=== PATIENT | male | born 1960 | race Caucasian/White ===

== ENCOUNTER 2021-08-12 01:40 | Inpatient (IN) | payer MEDICAID, SELFPAY ==
[2021-08-12] VITALS (9 sets, daily range): BP systolic 122–159; BP diastolic 52–70; PULSE 59–65; RESP 15–18; TEMP 36.3–37.2; O2SAT 96–98; BMI 21.4; BMI 24.6
[2021-08-12 01:52] LABS: Glucose, Whole Blood 70 mg/dL (60-115)
--- NOTE | 2021-08-12 02:07 | ECG_ITS ---
Test Reason : HYPOGLYCEMIA Blood Pressure : / mmHG Vent. Rate : 065 BPM Atrial Rate : 065 BPM P-R Int : 224 ms QRS Dur : 128 ms QT Int : 436 ms P-R-T Axes : 046 148 031 degrees QTc Int : 453 ms Sinus rhythm with 1st degree A-V block Non-specific intra-ventricular conduction block Anterolateral infarct , age undetermined Abnormal ECG No previous ECGs available Referred By: Vicky Starkey Electronically Signed By:INGRID KRISHNAN MD
[2021-08-12 02:48] LABS: Basophils Percent Auto 0.4 % (0-2); Eosinophils Absolute Auto 0.4 X10*3/uL (0.0-0.4); Eosinophils Percent Auto 3.7 % (0-4); Hemoglobin 10.1 g/dl (14.0-18.0); Imm Gran Abs Auto 0.04 X10*3/uL (0.00-0.03); Imm Gran Pct Auto 0.4 % (0.0-0.4); Lymphocytes Absolute Auto 0.8 X10*3/uL (1.2-4.9); Lymphocytes Percent Auto 7.6 % (20-40); MANUAL DIFF FLAG NO; Mean Corpuscular HGB Conc 34.8 g/dl (31.0-36.0); Mean Corpuscular Hemoglobin 30.5 pg (27.0-33.0); Mean Corpuscular Volume 87.6 fL (80-98); Monocytes Absolute Auto 0.8 X10*3/uL (0.1-1.2); Monocytes Percent Auto 7.8 % (2-11); Neutrophils Absolute Auto 7.9 X10*3/uL (2.0-8.3); Neutrophils Percent Auto 80.1 % (45-73); Platelet Count 225 X10*3/uL (160-400); Red Blood Count 3.31 X10*6/uL (4.60-5.80); Red Cell Distribution Width 12.6 % (11.0-16.0); White Blood Count 9.9 X10*3/uL (4.8-10.8)
--- NOTE | 2021-08-12 02:58 | ED.GENADULT ---
HPI - General Adult General Chief complaint: Recheck/Abnormal Lab/Rx Stated complaint: hyperglycemia Time Seen by Provider: 08/12/21 02:06 Source: patient Mode of arrival: EMS History of Present Illness HPI narrative: 60-year-old male who is brought in by EMS from [facility] facility for persistent hypoglycemia after patient was started on a course of fluconazole for significant oral thrush. According to the nursing staff patient was taken off of his diabetic medications but his blood sugar continues to ?plummet? after taking the fluconazole. Patient otherwise denies any current sore throat, cough, shortness of breath, chest pain, GI or symptoms. Patient states that he was recently found to have a mass within his mouth that is scheduled for radiation. Related Data Allergies Allergy/AdvReac Type Severity Reaction Status Date / Time No Known Allergies Allergy Unverified 08/12/21 02:07 Review of Systems Review of Systems: Pertinent positives and negatives as stated in HPI 10 point review of systems is otherwise negative. PMFSH Past Medical History Source: nursing notes reviewed Social History Social History Advance Directives: No Physical Exam Vital Signs: Vital Signs: Last Vital Signs Temp 97.4 F 08/12/21 02:04 Pulse 59 08/12/21 02:04 Resp 18 08/12/21 02:04 BP 135/59 L 08/12/21 02:04 Pulse Ox 96 08/12/21 02:04 VITAL SIGNS: Reviewed. GENERAL: Elderly, chronically ill, in no acute distress. HEAD: Normocephalic/atraumatic EYES: PERRLA, EOMI EARS: Ext canals without abnormality NOSE: Nares patent bilateral OROPHARYNX: There is a mass noted to the right upper hard/soft palate with extensive oral thrush NECK: Supple, no adenopathy LUNGS: Normal breath sounds. No adventitious sounds or accessory muscle use. SpO2<96> CARDIOVASCULAR: Regular rate and rhythm without noted murmurs, no JVD or lower extremity edema. ABDOMEN: Soft, non-tender, non-distended with bowel sounds. NEUROLOGIC: Alert and oriented x 3. Strength and sensation to light touch were grossly intact x 4. Course Course Course Narrative: This is a 60-year-old male with history and clinical presentation consistent with persistent hypoglycemia and noted to be 70 on arrival but during his stay was noted to have a repeat point of care that registered 49. Otherwise, there is a noted anemia that is likely secondary to chronic disease and a mildly elevated potassium level that will be re-evaluated after patient receives fluids. All other investigations were reviewed and case was discussed with inpatient hospitalist who accepts admission. Medical Decision Making Lab Data Result diagrams: 08/12/21 02:42 08/12/21 02:42 Labs: Lab Results 08/12/21 08/12/21 08/12/21 Range/Units 01:48 02:42 02:42 WBC 9.9 (4.8-10.8) X10*3/uL RBC 3.31 L (4.60-5.80) X10*6/uL Hgb 10.1 L (14.0-18.0) g/dl Hct 29.0 L (42-52) % MCV 87.6 (80-98) fL MCH 30.5 (27.0-33.0) pg MCHC 34.8 (31.0-36.0) g/dl RDW 12.6 (11.0-16.0) % Plt Count 225 (160-400) X10*3/uL MPV 9.0 L (9.4-12.4) fL Immature Gran % (Auto) 0.4 (0.0-0.4) % Neut % (Auto) 80.1 H (45-73) % Lymph % (Auto) 7.6 L (20-40) % [place] % (Auto) 7.8 (2-11) % Eos % (Auto) 3.7 (0-4) % Baso % (Auto) 0.4 (0-2) % Lymph # (Auto) 0.8 L (1.2-4.9) X10*3/uL [place] # (Auto) 0.8 (0.1-1.2) X10*3/uL Eos # (Auto) 0.4 (0.0-0.4) X10*3/uL Baso # (Auto) 0.0 (0.0-0.2) X10*3/uL Abs Immat Gran (auto) 0.04 H (0.00-0.03) X10*3/uL Absolute Neuts (auto) 7.9 (2.0-8.3) X10*3/uL Absolute Nucleated RBC 0.000 (0.0-0.012) X10*3/uL Nucleated RBC % (auto) 0.0 (0.0-0.2) /100WBC Sodium 139 (135-145) mmol/L Potassium 5.6 H (3.3-5.1) mmol/L Chloride 105 (96-108) mmol/L Carbon Dioxide 26 (22-29) mmol/L Anion Gap 14 (12-20) BUN 38 H (9-16) mg/dL Creatinine 1.38 (0.5-1.4) mg/dL Estim Creat Clear Calc TNP Estimated GFR 53 POC Glucose 70 (60-115) mg/dL Random Glucose 74 (60-115) mg/dL Calcium 8.3 L (8.4-10.2) mg/dL Total Bilirubin 0.2 (0.0-1.0) mg/dL AST 25 (5-37) U/L ALT 18 (0-40) U/L Alkaline Phosphatase 89 (39-117) U/L Total Protein 5.6 L (6.5-8.0) g/dL Albumin 2.9 L (3.5-5.0) g/dL 08/12/21 Range/Units 03:41 WBC (4.8-10.8) X10*3/uL RBC (4.60-5.80) X10*6/uL Hgb (14.0-18.0) g/dl Hct (42-52) % MCV (80-98) fL MCH (27.0-33.0) pg MCHC (31.0-36.0) g/dl RDW (11.0-16.0) % Plt Count (160-400) X10*3/uL MPV (9.4-12.4) fL Immature Gran % (Auto) (0.0-0.4) % Neut % (Auto) (45-73) % Lymph % (Auto) (20-40) % [place] % (Auto) (2-11) % Eos % (Auto) (0-4) % Baso % (Auto) (0-2) % Lymph # (Auto) (1.2-4.9) X10*3/uL [place] # (Auto) (0.1-1.2) X10*3/uL Eos # (Auto) (0.0-0.4) X10*3/uL Baso # (Auto) (0.0-0.2) X10*3/uL Abs Immat Gran (auto) (0.00-0.03) X10*3/uL Absolute Neuts (auto) (2.0-8.3) X10*3/uL Absolute Nucleated RBC (0.0-0.012) X10*3/uL Nucleated RBC % (auto) (0.0-0.2) /100WBC Sodium (135-145) mmol/L Potassium (3.3-5.1) mmol/L Chloride (96-108) mmol/L Carbon Dioxide (22-29) mmol/L Anion Gap (12-20) BUN (9-16) mg/dL Creatinine (0.5-1.4) mg/dL Estim Creat Clear Calc Estimated GFR POC Glucose 49 L* (60-115) mg/dL Random Glucose (60-115) mg/dL Calcium (8.4-10.2) mg/dL Total Bilirubin (0.0-1.0) mg/dL AST (5-37) U/L ALT (0-40) U/L Alkaline Phosphatase (39-117) U/L Total Protein (6.5-8.0) g/dL Albumin (3.5-5.0) g/dL ECG Data Attestation: I personally reviewed and interpreted this ECG as follows: Prior ECG tracings: not available for review Interpretation: Sinus rhythm with first-degree AV block, HR-65, no STEMI, QTC is within normal limits Discharge Plan Discharge Clinical Impression: Hypoglycemia, Oral thrush, Diabetes, Mass of oral cavity Patient Disposition: Admitted As Inpatient
[2021-08-12 03:07] LABS: Alanine Aminotransferase 18 U/L (0-40); Albumin Level 2.9 g/dL (3.5-5.0); Alkaline Phosphatase 89 U/L (39-117); Anion Gap 14 (12-20); Aspartate Amino Transferase 25 U/L (5-37); Bilirubin Total 0.2 mg/dL (0.0-1.0); Blood Urea Nitrogen 38 mg/dL (9-16); Calcium 8.3 mg/dL (8.4-10.2); Carbon Dioxide 26 mmol/L (22-29); Chloride 105 mmol/L (96-108); Estimated Glomerular Filt Rate 53; Glucose Random 74 mg/dL (60-115); Potassium 5.6 mmol/L (3.3-5.1); Sodium 139 mmol/L (135-145); Total Protein 5.6 g/dL (6.5-8.0)
[2021-08-12 03:46] LABS: Glucose, Whole Blood 49 mg/dL (60-115)
--- NOTE | 2021-08-12 04:28 | PM.IMHP ---
History of Present Illness Date of Service: 08/12/21 Chief Complaint: Hypoglycemia 60-year-old male with a past medical history of hypertension, hyperlipidemia, diabetes, hypothyroidism, chronic kidney disease, diastolic heart failure, history of orthostatic hypotension, unsteady gait, history of sepsis, came from a assisted-[facility] rehab (ph [phone]); with a chief complaint of hypoglycemia. Patient is a poor historian. I spoke to the assisted RN Mary Carmen who knows the patient for the past few weeks; reports that patient presented to the rehab place 6 weeks ago for tonsillitis which is been treated; Over the course of past couple weeks he developed oral thrush-he finished a course of nystatin swish and swallow oral thrush improved; 1 week later he again developed it; subsequently he was sent for evaluation and later he was restarted on fluconazole which he got the 1st dose on 08/11/2020 1:00 a.m. followed by 20 minutes later patient became mildly confused, sweaty; blood sugar was noted to be in 50s; given glucose cells with improvement in blood sugar; again last night patient was noted to be kneeling to the side of the bed; denies any falls or head strike; patient was noted to be drowsy lethargic, diaphoretic; and his blood pressure was noted to be again in 50s. Subsequently patient was sent to the hospital for further evaluation. Denies having any seizure-like episode. RN also mentioned that couple weeks ago patient was diagnosed with mass in the throat and is being worked up for further evaluation-reportedly untreatable, plan for radiation therapy. RN also mentioned that patient lost about 100 lb in the past 2 months. Patient denies any chest pain palpitations lightheadedness or dizziness. Denies any fevers and chills. Patient is alert and awake. Patient denies fever chills cough. Denies difficulty swallowing-mentions that he was recently changed to pureed diet; and has been having decreased oral intake or many days. Review of all other systems is negative except mentioned above ER course: Per ER team patient noted to have fingerstick glucose in 50; given dextrose; started on D5 half NS; admitted to the hospital for further management. [facility] Medical History Chronic diastolic CHF (congestive heart failure) CKD (chronic kidney disease), stage II CKD (chronic kidney disease), stage III Complete heart block Diabetes Diffuse large B cell lymphoma HTN (hypertension) Hypothyroid Orthostatic hypotension Pertinent family history: reviewed Surgical History H/O right hemicolectomy History of appendectomy S/P placement of cardiac pacemaker Social History Household Members: Other Household Members Other:: assisted Housing: [facility] Do you presently have visiting nurse or other home services: Yes Alcohol intake: never Patient Tobacco Use Status: Never used Tobacco Advance Directives Date on File: 08/12/21 service: No Current occupational status: disabled Meds Allergies Allergy/AdvReac Type Severity Reaction Status Date / Time No Known Allergies Allergy Unverified 08/12/21 02:07 Active Medications: Current Medications Acetaminophen (Acetaminophen 325 Mg Tablet) 650 mg PO Q6H PRN PRN Reason: Pain, Mild (Pain Scale 1-3) Heparin Sodium (Porcine) (Heparin Sodium,Porcine 5,000 Unit/Ml Vial) 5,000 unit SUBCUT Q8H VARUN Dextrose/Sodium Chloride (D51/2ns) 1,000 mls @ 50 mls/hr IVCONT .Q20H VARUN Melatonin (Melatonin 3 Mg Tablet) 6 mg PO BEDTIME PRN PRN Reason: Insomnia Ondansetron HCl (Ondansetron Hcl 4 Mg/2 Ml Vial) 4 mg IVPUSH Q8H PRN PRN Reason: Nausea and Vomiting Senna (Sennosides 8.6 Mg Tablet) 17.2 mg PO BEDTIME PRN PRN Reason: Constipation Sodium Chloride (0.9 % Sodium Chloride Flush 3 Ml Syringe) 3 ml IVFLUSH QSHIFT [facility] Home Medications Medication Instructions Recorded Confirmed Last Taken Type amlodipine 10 mg tablet (Norvasc) 10 mg PO DAILY 08/12/21 08/12/21 Unknown History aspirin 81 mg chewable tablet 81 mg PO DAILY 08/12/21 08/12/21 Unknown History brimonidine 0.1 % eye drops 1 drp OPHTHALMIC (EYE) BID 08/12/21 08/12/21 Unknown History carvedilol 25 mg tablet 25 mg PO BID 08/12/21 08/12/21 Unknown History clonidine HCl 0.1 mg tablet 0.1 mg PO BID 08/12/21 08/12/21 Unknown History fluconazole 40 mg/mL oral 200 mg PO DAILY 08/12/21 08/12/21 Unknown History suspension guaifenesin 100 mg/5 mL oral syrup 200 mg PO Q6H PRN 08/12/21 08/12/21 Unknown History guaifenesin 600 mg tablet, 600 mg PO Q12H PRN 08/12/21 08/12/21 Unknown History extended release 12 hr insulin lispro 100 unit/mL 1 sliding scale dose SUBCUT 08/12/21 08/12/21 Unknown History subcutaneous solution (Humalog USEASDIRECTD U-100 Insulin) levothyroxine 75 mcg tablet 75 mcg PO DAILY 08/12/21 08/12/21 Unknown History omega 8-vbo-eim-fish oil 1,000 mg 1 cap PO TID 08/12/21 08/12/21 Unknown History (120 mg-180 mg) capsule (Fish Oil) rosuvastatin 10 mg tablet 10 mg PO DAILY 08/12/21 08/12/21 Unknown History Physical Exam Vital Signs and Narrative: Vital Signs: Last Vital Signs Temp 97.4 F 08/12/21 02:04 Pulse 59 08/12/21 02:04 Resp 18 08/12/21 02:04 BP 135/59 L 08/12/21 02:04 Pulse Ox 96 08/12/21 02:04 Gen: Appears be in no acute distress HEENT: NCAT, Moist mucosa. Oral thrush noted involving most of the oral cavity including the tongue Pulmonary: Vesicular breath sounds, fair air entry CVS: Normal S1-S2 Abdomen: BS+, Soft, Nontender Extremities: Warm well perfused Neuro: Alert and awake. Results Labs CBC and Chem 7: 08/15/21 05:47 08/15/21 05:47 Labs: Laboratory Results - last 24 hr 08/12/21 08/12/21 08/12/21 01:48 02:42 02:42 MCV 87.6 MCH 30.5 MCHC 34.8 RDW 12.6 Plt Count 225 MPV 9.0 L Immature Gran % (Auto) 0.4 Neut % (Auto) 80.1 H Lymph % (Auto) 7.6 L [place] % (Auto) 7.8 Eos % (Auto) 3.7 Baso % (Auto) 0.4 Lymph # (Auto) 0.8 L [place] # (Auto) 0.8 Eos # (Auto) 0.4 Baso # (Auto) 0.0 Abs Immat Gran (auto) 0.04 H Absolute Neuts (auto) 7.9 Absolute Nucleated RBC 0.000 Nucleated RBC % (auto) 0.0 Anion Gap 14 Estim Creat Clear Calc TNP Estimated GFR 53 POC Glucose 70 Random Glucose 74 Calcium 8.3 L Total Bilirubin 0.2 AST 25 ALT 18 Alkaline Phosphatase 89 Total Protein 5.6 L Albumin 2.9 L 08/12/21 03:41 MCV MCH MCHC RDW Plt Count MPV Immature Gran % (Auto) Neut % (Auto) Lymph % (Auto) [place] % (Auto) Eos % (Auto) Baso % (Auto) Lymph # (Auto) [place] # (Auto) Eos # (Auto) Baso # (Auto) Abs Immat Gran (auto) Absolute Neuts (auto) Absolute Nucleated RBC Nucleated RBC % (auto) Anion Gap Estim Creat Clear Calc Estimated GFR POC Glucose 49 L* Random Glucose Calcium Total Bilirubin AST ALT Alkaline Phosphatase Total Protein Albumin Assessment and Plan (1) Hypoglycemia: Status: Acute (2) Oral thrush: Status: Acute (3) Diabetes: Status: Acute (4) Mass of oral cavity: Status: Resolved 60-year-old male with a past medical history of hypertension, hyperlipidemia, diabetes, hypothyroidism, chronic kidney disease, diastolic heart failure, history of orthostatic hypotension, unsteady gait, history of sepsis, tonsillitis, oral thrush presented with chief complaint of hypoglycemia. Hypoglycemia: Multifactorial. Patient had poor oral intake. Patient was on glimepiride at home. Per RN hypoglycemia happened after he got the 1st dose of fluconazole at the assisted. Patient was drowsy and diaphoretic during the episode. Patient currently improved symptomatically. Continue D5 half NS. Hold home insulin and oral hypoglycemic agents. Poor intake: Likely secondary to oral thrush. Also patient was recently diagnosed with throat mass. Speech and swallow evaluation. NPO for now Nutrition consult Oral thrush: Patient already finished course of nystatin swish and swallow couple weeks ago; patient currently denies any odynophagia. Patient received 1st dose of fluconazole on 08/11/2021. Will consult ID for further recommendations. Will defer to the a.m. team to discuss with Gastroenterology for possible EGD. Throat mass: Patient unable to provide more information. Reportedly he has been planned for radiotherapy as the mass was a inoperable. Will defer to the a.m. team to obtain records/consider Oncology consult. Diabetes: Monitor fingerstick glucose. Insulin and home oral hypoglycemic agents on hold secondary to recurrent hypoglycemia. History of diastolic heart failure: Patient reported that he was Lasix remotely. But has not been on it for many days. Currently not in fluid overload. Will continue to monitor. Also reports had a pacemaker. DVT prophylaxis: Subcu heparin Code status: Full code Emergency contact: Patient's brother [phone] Quality Stroke Does the patient have a stroke diagnosis?: No VTE Prior VTE?: No VTE Risk Level:: Medical - moderate - high VTE Device Contraindication: Treatment Not Indicated VTE Drug Contraindication: N/A - Med Ordered
[2021-08-12 04:30] LABS: Glucose, Whole Blood 57 mg/dL (60-115)
[2021-08-12 04:42] LABS: COVID-19 Test Negative (Negative)
[2021-08-12] MEDS: Dextrose 5 % and 0.45 % NaCl 1,000 ML 50 ML IVCONT (04:47)
[2021-08-12 05:36] LABS: Glucose, Whole Blood 113 mg/dL (60-115)
[2021-08-12 06:34] LABS: Appearance Urine CLEAR; Color Urine YELLOW; Glucose Urine UA NEG (NEG); Leukocyte Esterase Urine NEG (NEG); Nitrite Urine NEG (NEG); Specific Gravity - Urine 1.015 (1.005-1.025); UACC Culture Trigger NO; Urine Blood NEG (NEG); Urine Ketones NEG (NEG); Urine Protein 2+ MG/DL (NEG-TRACE)
[2021-08-12 06:52] LABS: RBC Urine 0 /HPF (0); WBC Urine 0 /HPF (0-4)
--- NOTE | 2021-08-12 07:08 | PHA.MEDREC ---
Pharmacy Consult ? Medication Reconciliation Pharmacy has completed the medication reconciliation. Additional medication were add into home medication list from [facility] medication list that were missed overnight. Barbie Sarah, MaryaD
[2021-08-12] MEDS: 0.9 % Sodium Chloride Flush 3 ML SYRINGE IVFLUSH (07:33)
[2021-08-12 08:03] LABS: MANUAL DIFF FLAG NO
[2021-08-12 08:03] LABS: Glucose, Whole Blood 41 mg/dL (60-115)
[2021-08-12 08:07] LABS: Basophils Percent Auto 0.4 % (0-2); Eosinophils Absolute Auto 0.3 X10*3/uL (0.0-0.4); Eosinophils Percent Auto 4.2 % (0-4); Hematocrit 27.4 % (42-52); Hemoglobin 9.4 g/dl (14.0-18.0); Imm Gran Abs Auto 0.03 X10*3/uL (0.00-0.03); Imm Gran Pct Auto 0.4 % (0.0-0.4); Lymphocytes Absolute Auto 0.9 X10*3/uL (1.2-4.9); Lymphocytes Percent Auto 11.9 % (20-40); Mean Corpuscular HGB Conc 34.3 g/dl (31.0-36.0); Mean Corpuscular Hemoglobin 29.8 pg (27.0-33.0); Monocytes Absolute Auto 0.8 X10*3/uL (0.1-1.2); Monocytes Percent Auto 10.1 % (2-11); Neutrophils Absolute Auto 5.8 X10*3/uL (2.0-8.3); Platelet Count 202 X10*3/uL (160-400); Red Blood Count 3.15 X10*6/uL (4.60-5.80); Red Cell Distribution Width 12.6 % (11.0-16.0); White Blood Count 7.9 X10*3/uL (4.8-10.8)
--- NOTE | 2021-08-12 08:10 | PC.NURSE ---
Addendum entered by Do Zamora RN 08/12/21 08:14: Dr Amaral aware. Original Note: Patient's POC 41; patient A+O, easily arousable, yet drowsy. D50 amp given. Patient more talkative after admin. To recheck POC in 15 min. R IV removed due to infiltration.
[2021-08-12 08:31] LABS: Glucose, Whole Blood 126 mg/dL (60-115)
[2021-08-12 08:36] LABS: Anion Gap 8 (12-20); Blood Urea Nitrogen 34 mg/dL (9-16); Calcium 7.8 mg/dL (8.4-10.2); Carbon Dioxide 28 mmol/L (22-29); Chloride 106 mmol/L (96-108); Creatinine Clr Calc Pharmacy 64.1; Estimated Glomerular Filt Rate > 60; Glucose Random 42 mg/dL (60-115); Magnesium 2.6 mg/dL (1.6-2.6); Sodium 137 mmol/L (135-145)
--- NOTE | 2021-08-12 09:10 | PC.NURSE ---
Updates to Mick mcneil over phone with patient's permission.
[2021-08-12 09:56] LABS: Glucose, Whole Blood 77 mg/dL (60-115)
[2021-08-12 09:56] LABS: Glucose, Whole Blood 59 mg/dL (60-115)
[2021-08-12] MEDS: Nystatin Oral Susp 500,000 UNIT/5 ML ORAL.SUSP 500000 UNIT PO ×4 (09:59→20:05)
--- NOTE | 2021-08-12 10:02 | PC.NURSE ---
Pt's bed mobility is quite good, able to roll side to side, adjust position etc. has 2st degree breakdown in buttocks fold. thick thrush layer on tongue and maffled voice. was able to follow instructions or swish and spit well. remains difficult to maintain safe sugars, last check was 59 and 1 amp d50 administered. pt has been alert and arousable to light touch since this rn arrival at 7am. awaits bed on medsur floor. is aware of NPO status.
[2021-08-12 10:29] LABS: Glucose, Whole Blood 129 mg/dL (60-115)
--- NOTE | 2021-08-12 11:04 | MHC.SL.SWA ---
Speech Pathologist Impression: Risk of Aspiration Oralpharyngeal Dysphagia Risk of Aspiration Due to: Poor PO Intake Dysphasia Diet Status: Upgrade Liquid Consistency and Strategies for Safe Swallow: Liquid Intake Recommendation: Thin Liquid Intake Strategies: Small Sips Solid Food Consistency: Dietary Recommendations: Pureed (NDD1) Additional Modifications to Solid Foods: Completed bedside dysphagia evaluation 08/12/21. Patient as brought to ED for chief complaint of hypoglycemia. Patient was recently diagnosed with throat mass and has lost 100 lbs in two months. Patient reports recent change to pureed foods. Note hyponasality. Patient is able to feed himself without difficulty. Patient displays prolonged oral preparatory phase and bolus manipulation. Delayed AP transport. Upon palpation, incomplete laryngeal elevation and timely swallow trigger. Patient did impulsively take very large bites of food, but responded to verbal cues reminding him to take small bites/sips. Recommend PUREED (NDD1) foods and THIN liquids, with small pills whole, otherwise crushed in puree. Recommend total supervision and strict aspiration precautions. NETWORK SYSTEMS ANALYST will follow up tomorrow morning to ensure tolerance and to assess potential for upgrade. Oral Medication Intake: Whole with Puree Compensatory Strategies and Precautions to be Taken for Safe Swallow: Sitting Upright (90 deg) Double Swallow Small Bites and Sips Alternate Liquids/Solids Rate of Ingestion Change Supervision While Eating and Drinking for Safe Swallow: Total Supervision (1:1) Swallowing Recommended Treatments: Compens. Strategy Educat. Recommendation for Speech: Inpatient Speech Therapy Speech Therapy through Rehab Facility NETWORK SYSTEMS ANALYST will continue to follow daily during hospitalization M-F. Recommend continued ST intervention at next level of care for dysphagia and voice. Dye Range Tender Clinican/Clinical Fellow: Yes: Karla Castorena Supervisory Statement: I have reviewed and agree with the student/clinical fellow's documentation: Yes Speech Language Pathologist: Lexus Cortes M.A., [facility]NETWORK SYSTEMS ANALYST
[2021-08-12] MEDS: Brimonidine Tartrate 0.2% Oph 5 ML BOTTLE 1 DROP EYE-BOTH ×2 (11:11→20:06)
[2021-08-12] MEDS: carvediloL 25 MG TABLET PO ×2 (11:11→20:05)
[2021-08-12] MEDS: Aspirin 81 MG TAB.CHEW PO (11:11)
[2021-08-12] MEDS: amLODIPine Besylate 10 MG TABLET PO (11:12)
[2021-08-12] MEDS: cloNIDine HCL 0.1 MG TABLET PO ×2 (11:12→20:05)
[2021-08-12] MEDS: Atorvastatin Calcium 40 MG TABLET PO (11:12)
[2021-08-12 11:36] LABS: Glucose, Whole Blood 87 mg/dL (60-115)
--- NOTE | 2021-08-12 11:41 | MHC.SLORD ---
Speech Language Pathology Order Status: DRILLING RIG OPERATOR called and spoke to office staff from unit where patient resides at [facility] in [place] ([phone]). Unable to reach patient's RN, but staff member was able to look up patient's dietary recommendations at [facility]. Patient is on pureed solids (NDD1) and thin liquids at baseline per [facility] records.
[2021-08-12] MEDS: Levothyroxine Sodium 75 MCG TABLET PO (11:42)
--- NOTE | 2021-08-12 12:16 | MHC.CM.PN ---
Attempted to meet with patient in regards to discharge planning. Patient is sleeping. Spoke with patient's brother/hcp, Mick via telephone at [phone]. Patient was discharged from [facility] to [facility] 06/22/21. Anticipate patient will return to [facility] via BLS when medically stable. Copy of HCP obtained from [facility]. Patient received Pfizer vaccines on 02/10 and 03/04. Continue to monitor for d/c needs.
[2021-08-12 12:54] LABS: Glucose, Whole Blood 90 mg/dL (60-115)
[2021-08-12 14:45] LABS: Glucose, Whole Blood 72 mg/dL (60-115)
[2021-08-12] MEDS: Heparin Sodium,Porcine 5,000 UNIT/ML VIAL 5000 UNIT SUBCUT ×2 (15:01→20:05)
--- NOTE | 2021-08-12 15:05 | PC.NURSE ---
sitting upright feeding himself pureed diet after POC of 72. pt is alert, muffled voice continues. states he's not urinated or had BM all day. this RN to make Dr. Amaral aware following bladder scan. Skin pale warm dry. unlabored resp. awaits bed on MS floor.
--- NOTE | 2021-08-12 15:34 | PC.NURSE ---
bladder scanned for more than 1L. Pt states he'll be able to urinate if assisted to stand. PCT to follow through and patient to recieve hospital bed as 999 status continues. Had no difficulty eating pureed tray.
[2021-08-12 16:22] LABS: Glucose, Whole Blood 134 mg/dL (60-115)
--- NOTE | 2021-08-12 16:27 | PC.NURSE ---
Pt moved from room 4 to room 20. POC obtained after meal >100. Pt able to void in urinal before transfer to the other room.
[2021-08-12 17:17] LABS: Glucose, Whole Blood 150 mg/dL (60-115)
[2021-08-12 18:26] LABS: Glucose, Whole Blood 163 mg/dL (60-115)
[2021-08-12 19:25] LABS: Glucose, Whole Blood 150 mg/dL (60-115)
--- NOTE | 2021-08-12 20:07 | PC.NURSE ---
PATIENT ATE 100 % OF DINNER .
[2021-08-12] MEDS: Dextrose 5 % and 0.45 % NaCl 1,000 ML 100 ML IVCONT (20:18)
[2021-08-12 20:34] LABS: Glucose, Whole Blood 192 mg/dL (60-115)
[2021-08-12 23:43] LABS: Glucose, Whole Blood 171 mg/dL (60-115)
--- NOTE | 2021-08-13 00:30 | PC.NURSE ---
Addendum entered by Nuvia Lerma RN 08/13/21 00:37: POC obtained > 100. Dr. Browne updated, will monitor Q6hr per MD orders. Original Note: Patient a/o x3, pt denies sob, chest pain or dizziness. Pt desatted to 64% on RA x1 @00:30 while sleeping, recovered quickly when awaken, oral cavity suctioned for saliva, sats > 95% on RA. Vitals obtained/charted. Will continue to monitor.
[2021-08-13] MEDS: Heparin Sodium,Porcine 5,000 UNIT/ML VIAL 5000 UNIT SUBCUT ×3 (05:15→22:02)
[2021-08-13 07:23] VITALS: BP 133/62; PULSE 68; RESP 19; O2SAT 96
[2021-08-13 07:26] LABS: Hemoglobin 9.8 g/dl (14.0-18.0); Mean Corpuscular Hemoglobin 30.9 pg (27.0-33.0); Mean Corpuscular Volume 88.3 fL (80-98); Mean Platelet Volume 8.9 fL (9.4-12.4); Platelet Count 198 X10*3/uL (160-400); Red Blood Count 3.17 X10*6/uL (4.60-5.80); Red Cell Distribution Width 12.5 % (11.0-16.0); White Blood Count 7.2 X10*3/uL (4.8-10.8)
[2021-08-13 07:48] LABS: Glucose, Whole Blood 143 mg/dL (60-115)
[2021-08-13 08:00] LABS: Alanine Aminotransferase 18 U/L (0-40); Albumin Level 2.5 g/dL (3.5-5.0); Alkaline Phosphatase 82 U/L (39-117); Anion Gap 10 (12-20); Aspartate Amino Transferase 19 U/L (5-37); Bilirubin Direct 0.2 mg/dL (0.0-0.5); Bilirubin Total 0.4 mg/dL (0.0-1.0); Blood Urea Nitrogen 28 mg/dL (9-16); Calcium 7.9 mg/dL (8.4-10.2); Carbon Dioxide 27 mmol/L (22-29); Chloride 107 mmol/L (96-108); Creatinine Clr Calc Pharmacy 64.6; Estimated Glomerular Filt Rate > 60; Glucose Fasting 128 mg/dL (60-99); Magnesium 2.4 mg/dL (1.6-2.6); Potassium 5.2 mmol/L (3.3-5.1); Sodium 139 mmol/L (135-145)
--- NOTE | 2021-08-13 10:01 | MHC.SL.DTX ---
Pre-Treatment Diet: Subjective: Changes made to current diet?: No Dysphasia Diet Status: Continue NDD1 PUREED solids and THIN LIQUIDS. Pt requires aspiration precautions and 1:1 supervision to provide cuing for safety. Liquid Consistency and Strategies: Liquid Intake Recommendation: Thin Compensatory Strategies for Safe Swallow: Small Sips No Straws Compensatory Strategies for Safe Swallow(b): Sitting Upright (90 deg) No Straw Liquids from Cup Small Bites and Sips Alternate Liquids/Solids Rate of Ingestion Change Solid Food Consistency: Dietary Recommendations: Pureed (NDD1) Additional Modifications to Solids: Completed bedside dysphagia evaluation this morning. Patient was recently diagnosed with throat mass and has lost 100 lbs in two months. Patient reports recent change to pureed foods. Note hyponasality. Patient is able to feed himself without difficulty. Patient displays prolonged oral preparatory phase and bolus manipulation. Delayed AP transport. Upon palpation, incomplete laryngeal elevation. Patient did impulsively take very large bites of food, but responded to verbal cues reminding him to take small bites/sips. Recommend PUREED (NDD1) foods and THIN liquids, with small pills whole, otherwise crushed in puree. Recommend total supervision and strict aspiration precautions. SHEEP BONER will follow up tomorrow morning to ensure tolerance and to assess potential for upgrade. Oral Medication Intake: Whole with Puree Strategies and Precautions to be Taken for Safe Swallow: Compensatory Swallowing Status: Sitting Upright (90 deg) No Straw Liquids from Cup Small Bites and Sips Alternate Liquids/Solids Rate of Ingestion Change Supervision While Eating and/Drinking: Total Supervision (1:1) Foods to Avoid: Swallowing Recommended Treatments: Compens. Strategy Educat. Level of Impact on: Daily activities: Moderate Interpersonal interactions: Moderate Education: Employment: Community: Moderate Prognosis for Improvement: Fair Recommendation for Speech: Inpatient Speech Therapy Speech Therapy through Rehab Facility Comment: Completed bedside dysphagia evaluation 08/12/21. Patient as brought to ED for chief complaint of hypoglycemia. Patient was recently diagnosed with throat mass and has lost 100 lbs in two months. Patient reports recent change to pureed foods. Note hyponasality. Patient is able to feed himself without difficulty. Patient displays prolonged oral preparatory phase and bolus manipulation. Delayed AP transport. Upon palpation, incomplete laryngeal elevation and timely swallow trigger. Patient did impulsively take very large bites of food, but responded to verbal cues reminding him to take small bites/sips. Recommend PUREED (NDD1) foods and THIN liquids, with small pills whole, otherwise crushed in puree. Recommend total supervision and strict aspiration precautions. SHEEP BONER will follow up tomorrow morning to ensure tolerance and to assess potential for upgrade. Frequency/Duration: Date Range for Service Req: Timeline to reassess: Additional Comments: Treatment: 08/13: Pt was seen for dysphagia treatment while seated upright in bed. Pt had consumed 100% of his breakfast which appeared to be the correct diet consistency of NDD1 PUREED solids and THIN liquids, which is consistent with that of his baseline diet at the [facility] where he resides. Pt reported that this is the type of food he typically eats and denied difficulty with his meal. Pt self fed pureed solids though demonstrated significant impulsivity as he used a very fast rate of intake and large bolus size. Given cues for a small, single bolus and to swallow one bolus before taking another, pt was then able to demonstrate a more appropriate bolus size and rate. Pt also demonstrated large, continuous sips of thin liquids and was again responsive to verbal cuing for the use of small, single sips. A mild-moderately delayed pharyngeal swallow trigger without overt s/s aspiration were noted across consistencies. SHEEP BONER will continue to follow pt throughout his stay. Driver/Guide Clinican/Clinical Fellow: No Supervisory Statement: I have reviewed and agree with the student/clinical fellow's documentation: N/A Speech Language Pathologist: Daniela Cleary M.A., [facility]SHEEP BONER
--- NOTE | 2021-08-13 11:13 | PM.CNGS ---
History of Present Illness Consult details Consult date: 08/13/21 Narrative: 60-year-old male, with history of CHF, chronic kidney disease, and a recent diagnosis of large B-cell lymphoma, referred to me for possible PEG tube placement. He is a snf resident. He apparently had some altered mental status and was noted to be hypoglycemic so with sent to the ER yesterday. He does not provide a good history so most of this history is from the current records. He apparently has had some weight loss which was deemed to be secondary to poor oral intake. He does have an oral thrush as well and has a mass in the throat. In view of his hypoglycemia secondary to poor oral intake, I was asked to evaluate for possible PEG tube placement. Review of Systems Constitutional: Constitutional: Denies chills, Denies fever(s) and Reports poor appetite Cardiovascular: Cardiovascular: Denies chest pain at rest and Reports dyspnea on exertion Respiratory: Respiratory: Denies cough and Reports dyspnea on exertion Gastrointestinal: Gastrointestinal: Denies abdominal pain Genitourinary: Genitourinary: Denies hematuria PMFSH Past Medical History Medical History Chronic diastolic CHF (congestive heart failure) CKD (chronic kidney disease), stage II CKD (chronic kidney disease), stage III Complete heart block Diabetes Diffuse large B cell lymphoma HTN (hypertension) Hypothyroid Orthostatic hypotension Surgical History Surgical History H/O right hemicolectomy History of appendectomy S/P placement of cardiac pacemaker Social History Social History Alcohol intake: never Patient Tobacco Use Status: Never used Tobacco Advance Directives Date on File: 08/12/21 service: No Current occupational status: disabled Meds Allergies Allergy/AdvReac Type Severity Reaction Status Date / Time No Known Allergies Allergy Unverified 08/12/21 02:07 Active Medications: Current Medications Acetaminophen (Acetaminophen 325 Mg Tablet) 650 mg PO Q6H PRN PRN Reason: Pain, Mild (Pain Scale 1-3) Amlodipine Besylate (Amlodipine Besylate 10 Mg Tablet) 10 mg PO DAILY [facility]; Protocol Last Admin: 08/12/21 11:12 Dose: 10 mg Documented by: Aspirin (Aspirin 81 Mg Tab.Chew) 81 mg PO DAILY [facility] Last Admin: 08/12/21 11:11 Dose: 81 mg Documented by: Atorvastatin Calcium (Atorvastatin Calcium 40 Mg Tablet) 40 mg PO DAILY [facility] Last Admin: 08/12/21 11:12 Dose: 40 mg Documented by: Brimonidine Tartrate (Brimonidine Tartrate 0.2% Oph 5 Ml Bottle) 1 drop EYE-BOTH BID [facility] Last Admin: 08/12/21 20:06 Dose: 1 drop Documented by: Carvedilol (Carvedilol 25 Mg Tablet) 25 mg PO BID [facility]; Protocol Last Admin: 08/12/21 20:05 Dose: 25 mg Documented by: Clonidine HCl (Clonidine Hcl 0.1 Mg Tablet) 0.1 mg PO BID [facility]; Protocol Last Admin: 08/12/21 20:05 Dose: 0.1 mg Documented by: Dextrose (Dextrose 50 % 25 Gm/50 Ml Vial) 25 gm IVPUSH Q15M PRN PRN Reason: per Hypoglycemia Standing Ord. Last Admin: 08/12/21 09:59 Dose: 25 gm Documented by: Heparin Sodium (Porcine) (Heparin Sodium,Porcine 5,000 Unit/Ml Vial) 5,000 unit SUBCUT Q8H [facility] Last Admin: 08/13/21 05:15 Dose: 5,000 unit Documented by: Levothyroxine Sodium (Levothyroxine Sodium 75 Mcg Tablet) 75 mcg PO DAILY [facility] Last Admin: 08/12/21 11:42 Dose: 75 mcg Documented by: Melatonin (Melatonin 3 Mg Tablet) 6 mg PO BEDTIME PRN PRN Reason: Insomnia Nystatin (Nystatin Oral Susp 500,000 Unit/5 Ml Oral.Susp) 500,000 unit PO QID [facility] Last Admin: 08/12/21 20:05 Dose: 500,000 unit Documented by: Ondansetron HCl (Ondansetron Hcl 4 Mg/2 Ml Vial) 4 mg IVPUSH Q8H PRN PRN Reason: Nausea and Vomiting Senna (Sennosides 8.6 Mg Tablet) 17.2 mg PO BEDTIME PRN PRN Reason: Constipation Sodium Chloride (0.9 % Sodium Chloride Flush 3 Ml Syringe) 3 ml IVFLUSH QSHIFT [facility] Last Admin: 08/13/21 07:58 Dose: Not Given Documented by: Home Medications Medication Instructions Recorded Confirmed Last Taken Type amlodipine 10 mg tablet (Norvasc) 10 mg PO DAILY 08/12/21 08/12/21 Unknown History aspirin 81 mg chewable tablet 81 mg PO DAILY 08/12/21 08/12/21 Unknown History brimonidine 0.1 % eye drops 1 drp OPHTHALMIC (EYE) BID 08/12/21 08/12/21 Unknown History carvedilol 25 mg tablet 25 mg PO BID 08/12/21 08/12/21 Unknown History clonidine HCl 0.1 mg tablet 0.1 mg PO BID 08/12/21 08/12/21 Unknown History fluconazole 40 mg/mL oral 200 mg PO DAILY 08/12/21 08/12/21 Unknown History suspension glimepiride 4 mg tablet 4 mg PO DAILY 08/12/21 08/12/21 Unknown History guaifenesin 100 mg/5 mL oral syrup 200 mg PO Q6H PRN 08/12/21 08/12/21 Unknown History guaifenesin 600 mg tablet, 600 mg PO Q12H PRN 08/12/21 08/12/21 Unknown History extended release 12 hr insulin lispro 100 unit/mL 1 sliding scale dose SUBCUT 08/12/21 08/12/21 Unknown History subcutaneous solution (Humalog USEASDIRECTD U-100 Insulin) levothyroxine 75 mcg tablet 75 mcg PO DAILY 08/12/21 08/12/21 Unknown History omega 5-zny-ogt-fish oil 1,000 mg 1 cap PO TID 08/12/21 08/12/21 Unknown History (120 mg-180 mg) capsule (Fish Oil) rosuvastatin 10 mg tablet 10 mg PO DAILY 08/12/21 08/12/21 Unknown History Physical Exam Vital Signs: Vital Signs: Last Vital Signs Temp 97.8 F 08/12/21 22:00 Pulse 68 08/13/21 07:23 Resp 19 08/13/21 07:23 BP 133/62 08/13/21 07:23 Pulse Ox 96 08/13/21 07:23 Body Mass Index 24.6 Const: General: comfortable and no acute distress Orientation/consciousness: patient oriented x3 Neck: Neck: Yes no lymphadenopathy Resp: Auscultation: clear to auscultation bilaterally Cardio: Rhythm: regular rhythm GI: Palpation (GI): Soft to palpation, nontender and no guarding Neuro: General: patient oriented x3 Results Labs Result diagrams: 08/13/21 07:20 08/13/21 07:20 Labs: Abnormal lab results 08/12/21 08/12/21 08/12/21 Range/Units 16:18 17:14 18:22 RBC (4.60-5.80) X10*6/uL Hgb (14.0-18.0) g/dl Hct (42-52) % MPV (9.4-12.4) fL Potassium (3.3-5.1) mmol/L Anion Gap (12-20) BUN (9-16) mg/dL POC Glucose 134 H 150 H 163 H (60-115) mg/dL Fasting Glucose (60-99) mg/dL Calcium (8.4-10.2) mg/dL Total Protein (6.5-8.0) g/dL Albumin (3.5-5.0) g/dL 08/12/21 08/12/21 08/12/21 Range/Units 19:20 20:20 22:19 RBC (4.60-5.80) X10*6/uL Hgb (14.0-18.0) g/dl Hct (42-52) % MPV (9.4-12.4) fL Potassium (3.3-5.1) mmol/L Anion Gap (12-20) BUN (9-16) mg/dL POC Glucose 150 H 192 H 171 H (60-115) mg/dL Fasting Glucose (60-99) mg/dL Calcium (8.4-10.2) mg/dL Total Protein (6.5-8.0) g/dL Albumin (3.5-5.0) g/dL 08/13/21 08/13/21 08/13/21 Range/Units 07:20 07:20 07:45 RBC 3.17 L (4.60-5.80) X10*6/uL Hgb 9.8 L (14.0-18.0) g/dl Hct 28.0 L (42-52) % MPV 8.9 L (9.4-12.4) fL Potassium 5.2 H (3.3-5.1) mmol/L Anion Gap 10 L (12-20) BUN 28 H (9-16) mg/dL POC Glucose 143 H (60-115) mg/dL Fasting Glucose 128 H (60-99) mg/dL Calcium 7.9 L (8.4-10.2) mg/dL Total Protein 5.0 L (6.5-8.0) g/dL Albumin 2.5 L (3.5-5.0) g/dL Short CBC 08/13/21 Range/Units 07:20 WBC 7.2 (4.8-10.8) X10*3/uL Hgb 9.8 L (14.0-18.0) g/dl Hct 28.0 L (42-52) % Plt Count 198 (160-400) X10*3/uL BMP 08/13/21 07:20 Sodium 139 Potassium 5.2 H Chloride 107 Carbon Dioxide 27 BUN 28 H Creatinine 1.15 Calcium 7.9 L Liver Function 08/13/21 Range/Units 07:20 Total Bilirubin 0.4 (0.0-1.0) mg/dL Direct Bilirubin 0.2 (0.0-0.5) mg/dL AST 19 (5-37) U/L ALT 18 (0-40) U/L Alkaline Phosphatase 82 (39-117) U/L Albumin 2.5 L (3.5-5.0) g/dL Urine 08/12/21 Range/Units 06:26 Urine Color YELLOW Urine Appearance CLEAR Urine pH 6.0 (5.0-8.0) Ur Specific [place] 1.015 (1.005-1.025) Urine Protein 2+ H (NEG-TRACE) MG/DL Urine Glucose (UA) NEG (NEG) MG/DL All other labs normal. Assessment and Plan (1) Hypoglycemia: Status: Acute He was admitted with hyperglycemia, and apparent poor oral intake. It was reported that he has lost a lot of weight over the past few months. He was therefore referred to me for PEG tube placement. However, examination currently reveals that the patient actually had tolerated breakfast. He says that he ate practically all of his breakfast and says that he really did not have any problems with swallowing. We will see how he does over the weekend. We will re-evaluate him on Monday. If he appears to still require a PEG tube placement, then we will try to schedule him for this early next week. I have discussed the above with the hospitalist. Procedures Date of Service Date of Service: 08/13/21
[2021-08-13 11:16] VITALS: BP 156/62; PULSE 70
[2021-08-13] MEDS: Atorvastatin Calcium 40 MG TABLET PO (11:16)
[2021-08-13] MEDS: Aspirin 81 MG TAB.CHEW PO (11:16)
[2021-08-13] MEDS: cloNIDine HCL 0.1 MG TABLET PO ×2 (11:16→22:01)
[2021-08-13] MEDS: Nystatin Oral Susp 500,000 UNIT/5 ML ORAL.SUSP 500000 UNIT PO ×4 (11:16→22:02)
[2021-08-13 11:18] VITALS: BP 156/62; PULSE 70
[2021-08-13] MEDS: amLODIPine Besylate 10 MG TABLET PO (11:18)
[2021-08-13] MEDS: Brimonidine Tartrate 0.2% Oph 5 ML BOTTLE 1 DROP EYE-BOTH (11:18)
[2021-08-13 11:19] VITALS: BP 156/62; PULSE 70
[2021-08-13] MEDS: Levothyroxine Sodium 75 MCG TABLET PO (11:19)
[2021-08-13] MEDS: carvediloL 25 MG TABLET PO ×2 (11:19→22:02)
--- NOTE | 2021-08-13 11:46 | P.PNIM_ITS ---
Subjective Subjective Date of Service: 08/13/21 Interval History: cc: hypoglycemia interval history: nasal congestion, otherwise tolerated pureed breakfast well Cardiovascular Cardiovascular: Reports no additional cardiovascular complaints Respiratory Respiratory: Reports no additional respiratory complaints Physical Exam Vital Signs: Vital Signs: Last Vital Signs Temp 97.8 F 08/12/21 22:00 Pulse 70 08/13/21 11:19 Resp 19 08/13/21 07:23 BP 156/62 H 08/13/21 11:19 Pulse Ox 96 08/13/21 07:23 Body Mass Index 24.6 General: AO X 3, no acute distress HEENT: thrush, large oropharyngeal mass Resp: CTA bilateral, no accessory muscles used CVS: S1,S2,RRR GI: soft, non tender, non distended Neuro: motor grossly intact, alert Psych: appropriate affect, appropriate insight Objective Data Active Medications Acetaminophen (Acetaminophen 325 Mg Tablet) 650 mg PO Q6H PRN PRN Reason: Pain, Mild (Pain Scale 1-3) Amlodipine Besylate (Amlodipine Besylate 10 Mg Tablet) 10 mg PO DAILY [facility]; Protocol Last Admin: 08/13/21 11:18 Dose: 10 mg Documented by: NETO Aspirin (Aspirin 81 Mg Tab.Chew) 81 mg PO DAILY [facility] Last Admin: 08/13/21 11:16 Dose: 81 mg Documented by: NETO Atorvastatin Calcium (Atorvastatin Calcium 40 Mg Tablet) 40 mg PO DAILY [facility] Last Admin: 08/13/21 11:16 Dose: 40 mg Documented by: NETO Brimonidine Tartrate (Brimonidine Tartrate 0.2% Oph 5 Ml Bottle) 1 drop EYE- BOTH BID [facility] Last Admin: 08/13/21 11:18 Dose: 1 drop Documented by: NETO Carvedilol (Carvedilol 25 Mg Tablet) 25 mg PO BID [facility]; Protocol Last Admin: 08/13/21 11:19 Dose: 25 mg Documented by: NETO Clonidine HCl (Clonidine Hcl 0.1 Mg Tablet) 0.1 mg PO BID [facility]; Protocol Last Admin: 08/13/21 11:16 Dose: 0.1 mg Documented by: NETO Dextrose (Dextrose 50 % 25 Gm/50 Ml Vial) 25 gm IVPUSH Q15M PRN PRN Reason: per Hypoglycemia Standing Ord. Last Admin: 08/12/21 09:59 Dose: 25 gm Documented by: JERICA Heparin Sodium (Porcine) (Heparin Sodium,Porcine 5,000 Unit/Ml Vial) 5,000 unit SUBCUT Q8H [facility] Last Admin: 08/13/21 05:15 Dose: 5,000 unit Documented by: BRUNILDA Levothyroxine Sodium (Levothyroxine Sodium 75 Mcg Tablet) 75 mcg PO DAILY [facility] Last Admin: 08/13/21 11:19 Dose: 75 mcg Documented by: NETO Melatonin (Melatonin 3 Mg Tablet) 6 mg PO BEDTIME PRN PRN Reason: Insomnia Nystatin (Nystatin Oral Susp 500,000 Unit/5 Ml Oral.Susp) 500,000 unit PO QID [facility] Last Admin: 08/13/21 11:16 Dose: 500,000 unit Documented by: NETO Ondansetron HCl (Ondansetron Hcl 4 Mg/2 Ml Vial) 4 mg IVPUSH Q8H PRN PRN Reason: Nausea and Vomiting Senna (Sennosides 8.6 Mg Tablet) 17.2 mg PO BEDTIME PRN PRN Reason: Constipation Sodium Chloride (0.9 % Sodium Chloride Flush 3 Ml Syringe) 3 ml IVFLUSH QSHIFT [facility] Last Admin: 08/13/21 07:58 Dose: Not Given Documented by: NETO Non-Admin Reason: IV Running Labs CBC & Chem 7: 08/13/21 07:20 08/13/21 07:20 Labs: Laboratory Results - last 24 hr 08/12/21 08/12/21 08/12/21 12:48 14:41 16:18 MCV MCH MCHC RDW Plt Count MPV Absolute Nucleated RBC Nucleated RBC % (auto) Anion Gap Estim Creat Clear Calc Estimated GFR POC Glucose 90 72 134 H Fasting Glucose Calcium Magnesium Total Bilirubin Direct Bilirubin AST ALT Alkaline Phosphatase Total Protein Albumin 08/12/21 08/12/21 08/12/21 17:14 18:22 19:20 MCV MCH MCHC RDW Plt Count MPV Absolute Nucleated RBC Nucleated RBC % (auto) Anion Gap Estim Creat Clear Calc Estimated GFR POC Glucose 150 H 163 H 150 H Fasting Glucose Calcium Magnesium Total Bilirubin Direct Bilirubin AST ALT Alkaline Phosphatase Total Protein Albumin 08/12/21 08/12/21 08/13/21 20:20 22:19 07:20 MCV 88.3 MCH 30.9 MCHC 35.0 RDW 12.5 Plt Count 198 MPV 8.9 L Absolute Nucleated RBC 0.000 Nucleated RBC % (auto) 0.0 Anion Gap Estim Creat Clear Calc Estimated GFR POC Glucose 192 H 171 H Fasting Glucose Calcium Magnesium Total Bilirubin Direct Bilirubin AST ALT Alkaline Phosphatase Total Protein Albumin 08/13/21 08/13/21 07:20 07:45 MCV MCH MCHC RDW Plt Count MPV Absolute Nucleated RBC Nucleated RBC % (auto) Anion Gap 10 L Estim Creat Clear Calc 64.6 Estimated GFR > 60 POC Glucose 143 H Fasting Glucose 128 H Calcium 7.9 L Magnesium 2.4 Total Bilirubin 0.4 Direct Bilirubin 0.2 AST 19 ALT 18 Alkaline Phosphatase 82 Total Protein 5.0 L Albumin 2.5 L Assessment and Plan (1) CKD (chronic kidney disease), stage III: Status: Acute (2) Diffuse large B cell lymphoma: Status: Acute (3) Chronic diastolic CHF (congestive heart failure): Status: Acute (4) Hypothyroid: Status: Acute (5) Oral thrush: Status: Acute (6) Hypoglycemia: Status: Acute (7) Diabetes: Status: Acute Assessment and Plan: 60M sent in for dysphagia/hypoglycemia DM with hypoglycemia due to dysphagia from oropharyngeal mass and thrush in patient on sulfonourea continue diflucan eating better now - pureed/thins dc IVF, monitor poc, if unable to maintain on own would pursue Gtube early next week, otherwise can continue pureed diet and use insulin sliding scale instead o f orals. 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 Subcu heparin Code status:? Full code Quality Stroke Does the patient have a stroke diagnosis?: No VTE Prior VTE?: No VTE Risk Level:: Medical - moderate - high VTE Device Contraindication: Treatment Not Indicated VTE Drug Contraindication: N/A - Med Ordered
--- NOTE | 2021-08-13 13:04 | MHC.CLN ---
RE: CONSULT FOR POOR PO PT WITH ORAL THRUSK X 2 PT RX PUREED DIET PER HIV/AIDS CARE NURSE AND ALSO RECEIVED AT [facility]F NANOSCIENCE TECHNICIAN RECOMMEND ADDING ENSURE BID TO INCREASE KCALS SUPP TO PROVIDE 700KCALS, 40G PROTEIN MONITOR PO INTAKE CLOSELY
[2021-08-13 14:51] VITALS: BP 143/70; PULSE 68; RESP 20; TEMP 36.4; O2SAT 97
[2021-08-13 14:51] LABS: Glucose, Whole Blood 224 mg/dL (60-115)
[2021-08-13 15:12] VITALS: BP 147/65; PULSE 71; RESP 18; TEMP 36.9; O2SAT 97
[2021-08-13 15:45] VITALS: BMI 24.6
--- NOTE | 2021-08-13 15:59 | MHC.CLN ---
NUTRITION CONSULT STAGE I TO BUTTOCKS. DIET=PUREE, THIN LIQUIDS. ADDED ENSURE BID (700 KCAL, 40 G PROTEIN). DISCUSSED WEIGHT LOSS WITH PATIENT. STATED THAT WEIGHED 215# ABOUT A YEAR AGO. CURRENT EVCTRH=645#. SIGNIFICANT, UNPLANNED WEIGHT LOSS X 1 YEAR, -27%. SEE CLINICAL NUTRITION ASSESSMENT.
[2021-08-13 16:09] LABS: Glucose, Whole Blood 229 mg/dL (60-115)
[2021-08-13] MEDS: 0.9 % Sodium Chloride Flush 3 ML SYRINGE IVFLUSH ×2 (16:17→23:48)
[2021-08-13] MEDS: Insulin Lispro 100 UNIT/ML 3 ML VIAL SUBCUT (16:43)
[2021-08-13 20:25] LABS: Glucose, Whole Blood 205 mg/dL (60-115)
[2021-08-14] VITALS: BP 122/62; PULSE 64; RESP 18; TEMP 37.1; O2SAT 97
[2021-08-14 03:53] VITALS: BP 149/76; PULSE 70; RESP 17; TEMP 37.4; O2SAT 97
[2021-08-14] MEDS: Heparin Sodium,Porcine 5,000 UNIT/ML VIAL 5000 UNIT SUBCUT ×3 (04:41→20:32)
[2021-08-14 04:48] LABS: Hematocrit 26.4 % (42-52); Mean Corpuscular HGB Conc 34.1 g/dl (31.0-36.0); Mean Corpuscular Hemoglobin 29.9 pg (27.0-33.0); Mean Corpuscular Volume 87.7 fL (80-98); Mean Platelet Volume 9.3 fL (9.4-12.4); Platelet Count 208 X10*3/uL (160-400); Red Blood Count 3.01 X10*6/uL (4.60-5.80); Red Cell Distribution Width 12.3 % (11.0-16.0); White Blood Count 7.3 X10*3/uL (4.8-10.8)
[2021-08-14 05:10] LABS: Anion Gap 12 (12-20); Blood Urea Nitrogen 28 mg/dL (9-16); Calcium 7.8 mg/dL (8.4-10.2); Carbon Dioxide 26 mmol/L (22-29); Chloride 106 mmol/L (96-108); Creatinine Clr Calc Pharmacy 54.6; Estimated Glomerular Filt Rate 54; Glucose Fasting 139 mg/dL (60-99); Potassium 5.4 mmol/L (3.3-5.1); Sodium 139 mmol/L (135-145)
[2021-08-14 07:53] LABS: Glucose, Whole Blood 130 mg/dL (60-115)
[2021-08-14 08:00] VITALS: BP 155/86; PULSE 69; RESP 16; TEMP 37.4; O2SAT 98
--- NOTE | 2021-08-14 10:08 | P.PNIM_ITS ---
Subjective Subjective Date of Service: 08/14/21 Interval History: cc: hypoglycemia itnerval history: eating well, maintaining glucose Cardiovascular Cardiovascular: Reports no additional cardiovascular complaints Respiratory Respiratory: Reports no additional respiratory complaints Physical Exam Vital Signs: Vital Signs: Last Vital Signs Temp 99.4 F 08/14/21 08:00 Pulse 69 08/14/21 08:00 Resp 16 08/14/21 08:00 BP 155/86 H 08/14/21 08:00 Pulse Ox 98 08/14/21 08:00 Body Mass Index 24.6 General: AO X 3, no acute distress HEENT: thrush, large oropharyngeal mass Resp:? CTA bilateral, no accessory muscles used CVS: S1,S2,RRR GI: soft, non tender, non distended Neuro:? motor grossly intact, alert Psych: appropriate affect, appropriate insight? Objective Data Active Medications Acetaminophen (Acetaminophen 325 Mg Tablet) 650 mg PO Q6H PRN PRN Reason: Pain, Mild (Pain Scale 1-3) Amlodipine Besylate (Amlodipine Besylate 10 Mg Tablet) 10 mg PO DAILY [facility]; Protocol Last Admin: 08/13/21 11:18 Dose: 10 mg Documented by: NETO Aspirin (Aspirin 81 Mg Tab.Chew) 81 mg PO DAILY [facility] Last Admin: 08/13/21 11:16 Dose: 81 mg Documented by: NEOT Atorvastatin Calcium (Atorvastatin Calcium 40 Mg Tablet) 40 mg PO DAILY [facility] Last Admin: 08/13/21 11:16 Dose: 40 mg Documented by: NETO Brimonidine Tartrate (Brimonidine Tartrate 0.2% Oph 5 Ml Bottle) 1 drop EYE- BOTH BID [facility] Last Admin: 08/13/21 22:19 Dose: Not Given Documented by: BONILLA Non-Admin Reason: Patient Refused Carvedilol (Carvedilol 25 Mg Tablet) 25 mg PO BID [facility]; Protocol Last Admin: 08/13/21 22:02 Dose: 25 mg Documented by: BONILLA Clonidine HCl (Clonidine Hcl 0.1 Mg Tablet) 0.1 mg PO BID [facility]; Protocol Last Admin: 08/13/21 22:01 Dose: 0.1 mg Documented by: BONILLA Dextrose (Dextrose 50 % 25 Gm/50 Ml Vial) 25 gm IVPUSH Q15M PRN PRN Reason: per Hypoglycemia Standing Ord. Last Admin: 08/12/21 09:59 Dose: 25 gm Documented by: JERICA Dextrose (Dextrose 50 % 25 Gm/50 Ml Vial) 25 gm IVPUSH Q15M PRN; Protocol PRN Reason: per Hypoglycemia Standing Ord. Glucose (Glucose Gel 15 Gm Gel..Gram.) 15 gm PO Q15M PRN; Protocol PRN Reason: per Hypoglycemia Standing Ord. Heparin Sodium (Porcine) (Heparin Sodium,Porcine 5,000 Unit/Ml Vial) 5,000 unit SUBCUT Q8H [facility] Last Admin: 08/14/21 04:41 Dose: 5,000 unit Documented by: BONILLA Insulin Human Lispro (Insulin Lispro 100 Unit/Ml 3 Ml Vial) 0 unit SUBCUT QIDACHS [facility]; Protocol Last Admin: 08/14/21 08:14 Dose: Not Given Documented by: MARY LOU Non-Admin Reason: No Insulin Coverage Levothyroxine Sodium (Levothyroxine Sodium 75 Mcg Tablet) 75 mcg PO DAILY [facility] Last Admin: 08/13/21 11:19 Dose: 75 mcg Documented by: NETO Melatonin (Melatonin 3 Mg Tablet) 6 mg PO BEDTIME PRN PRN Reason: Insomnia Nystatin (Nystatin Oral Susp 500,000 Unit/5 Ml Oral.Susp) 500,000 unit PO QID [facility] Last Admin: 08/13/21 22:02 Dose: 500,000 unit Documented by: BONILLA Ondansetron HCl (Ondansetron Hcl 4 Mg/2 Ml Vial) 4 mg IVPUSH Q8H PRN PRN Reason: Nausea and Vomiting Senna (Sennosides 8.6 Mg Tablet) 17.2 mg PO BEDTIME PRN PRN Reason: Constipation Sodium Chloride (0.9 % Sodium Chloride Flush 3 Ml Syringe) 3 ml IVFLUSH QSHIFT [facility] Last Admin: 08/13/21 23:48 Dose: 3 ml Documented by: BONILLA Labs CBC & Chem 7: 08/14/21 04:04 08/14/21 04:04 Labs: Laboratory Results - last 24 hr 08/13/21 08/13/21 08/13/21 14:48 15:58 20:14 MCV MCH MCHC RDW Plt Count MPV Absolute Nucleated RBC Nucleated RBC % (auto) Anion Gap Estim Creat Clear Calc Estimated GFR POC Glucose 224 H 229 H 205 H Fasting Glucose Calcium 08/14/21 08/14/21 08/14/21 04:04 04:04 07:33 MCV 87.7 MCH 29.9 MCHC 34.1 RDW 12.3 Plt Count 208 MPV 9.3 L Absolute Nucleated RBC 0.000 Nucleated RBC % (auto) 0.0 Anion Gap 12 Estim Creat Clear Calc 54.6 Estimated GFR 54 POC Glucose 130 H Fasting Glucose 139 H Calcium 7.8 L Assessment and Plan (1) CKD (chronic kidney disease), stage III: Status: Acute (2) Diffuse large B cell lymphoma: Status: Acute (3) Chronic diastolic CHF (congestive heart failure): Status: Acute (4) Hypothyroid: Status: Acute (5) Oral thrush: Status: Acute (6) Hypoglycemia: Status: Acute (7) Diabetes: Status: Acute Assessment and Plan: 60M sent in for dysphagia/hypoglycemia DM with hypoglycemia due to dysphagia from oropharyngeal mass and thrush in patient on sulfonourea continue diflucan eating better now - pureed/thins now off IVF, monitor poc, if unable to maintain on own would pursue Gtube early next week, but looking like ok to continue pureed diet and use insulin sliding scale instead of orals. 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 Subcu heparin Code status:? Full code Quality Stroke Does the patient have a stroke diagnosis?: No VTE Prior VTE?: No VTE Risk Level:: Medical - moderate - high VTE Device Contraindication: Treatment Not Indicated VTE Drug Contraindication: N/A - Med Ordered
[2021-08-14] MEDS: Levothyroxine Sodium 75 MCG TABLET PO (10:40)
[2021-08-14] MEDS: Nystatin Oral Susp 500,000 UNIT/5 ML ORAL.SUSP 500000 UNIT PO ×4 (10:40→20:34)
[2021-08-14] MEDS: cloNIDine HCL 0.1 MG TABLET PO ×2 (10:40→20:33)
[2021-08-14] MEDS: amLODIPine Besylate 10 MG TABLET PO (10:40)
[2021-08-14] MEDS: carvediloL 25 MG TABLET PO ×2 (10:40→20:33)
[2021-08-14] MEDS: Atorvastatin Calcium 40 MG TABLET PO (10:40)
[2021-08-14] MEDS: 0.9 % Sodium Chloride Flush 3 ML SYRINGE IVFLUSH ×2 (10:41→16:42)
[2021-08-14] MEDS: Aspirin 81 MG TAB.CHEW PO (10:41)
[2021-08-14] MEDS: Brimonidine Tartrate 0.2% Oph 5 ML BOTTLE 1 DROP EYE-BOTH ×2 (10:41→20:33)
[2021-08-14 11:55] LABS: Glucose, Whole Blood 226 mg/dL (60-115)
[2021-08-14] MEDS: Insulin Lispro 100 UNIT/ML 3 ML VIAL SUBCUT ×3 (12:14→20:34)
[2021-08-14 15:36] VITALS: BP 132/62; PULSE 71; RESP 18; TEMP 37.3; O2SAT 96
[2021-08-14 16:22] LABS: Glucose, Whole Blood 283 mg/dL (60-115)
[2021-08-14 20:30] LABS: Glucose, Whole Blood 156 mg/dL (60-115)
[2021-08-14 20:33] VITALS: BP 132/62; PULSE 71
[2021-08-15] VITALS: BP 160/68; PULSE 66; RESP 18; TEMP 36.9
[2021-08-15] MEDS: 0.9 % Sodium Chloride Flush 3 ML SYRINGE IVFLUSH ×2 (00:23→10:01)
[2021-08-15 04:23] VITALS: BP 168/72; PULSE 66; RESP 18; TEMP 37.2; O2SAT 96
[2021-08-15] MEDS: Heparin Sodium,Porcine 5,000 UNIT/ML VIAL 5000 UNIT SUBCUT (05:45)
[2021-08-15 06:15] LABS: Hematocrit 26.8 % (42-52); Hemoglobin 9.2 g/dl (14.0-18.0); Mean Corpuscular HGB Conc 34.3 g/dl (31.0-36.0); Mean Corpuscular Hemoglobin 30.1 pg (27.0-33.0); Mean Corpuscular Volume 87.6 fL (80-98); Mean Platelet Volume 9.2 fL (9.4-12.4); Platelet Count 212 X10*3/uL (160-400); Red Blood Count 3.06 X10*6/uL (4.60-5.80); Red Cell Distribution Width 12.4 % (11.0-16.0); White Blood Count 6.7 X10*3/uL (4.8-10.8)
[2021-08-15 06:36] LABS: Anion Gap 9 (12-20); Blood Urea Nitrogen 30 mg/dL (9-16); Calcium 8.2 mg/dL (8.4-10.2); Carbon Dioxide 30 mmol/L (22-29); Chloride 107 mmol/L (96-108); Creatinine Clr Calc Pharmacy 58.5; Estimated Glomerular Filt Rate 58; Glucose Fasting 139 mg/dL (60-99); Sodium 141 mmol/L (135-145)
[2021-08-15 07:14] VITALS: BP 159/72; PULSE 69; RESP 20; TEMP 36.9; O2SAT 97
[2021-08-15 07:47] LABS: Glucose, Whole Blood 147 mg/dL (60-115)
--- NOTE | 2021-08-15 09:37 | MHC.CM.PN ---
PATIENT TO RETURN TO [facility] TODAY VIA [facility]. RN AND UNIT AWARE OF PLAN. THIS RN DOCUMENT IMPROVEMENT TO CONTACT HCP/BROTHER ARTUR TO NOTIFY HIM OF THE PLAN. [phone]
--- NOTE | 2021-08-15 09:43 | PM.DS ---
DS: Providers Provider Date of Service: 08/15/21 Date of admission: 08/12/21 04:11 Primary care physician: Sharmila Bahena MD Consults: 08/12/21 04:11 Consult to Infectious Diseases Routine Consulting Provider: Itzel García Reason for consultation: thrush; 08/12/21 08:36 Consult to General Surgery Routine Consulting Provider: Mick Celis Reason for consultation: oropharyngeal lymphoma - dysphagia/hypoglycemia, anticipate need for Gtube DS: Diagnosis Discharge Diagnosis (1) CKD (chronic kidney disease), stage III: Status: Acute (2) Diffuse large B cell lymphoma: Status: Acute (3) Chronic diastolic CHF (congestive heart failure): Status: Acute (4) Hypothyroid: Status: Acute (5) Oral thrush: Status: Acute (6) Hypoglycemia: Status: Acute (7) Diabetes: Status: Acute DS: Summary Hospital Course Hospital Course: patient was admitted for DM complicated by hypoglycemia due to dysphagia and poor intake from oropharyngeal mass (diffuse B cell lymphoma) and thrush, while on glimeparide. he was given IV fluids containing dextrose, continued on antifungal therapy, glimeparide was held. initially, was planned to pursue with Gastrostomy to ensure better intake. however, after about 24 hours, glucose stabilized and continue to be noraml off IV fluids, intake improved and patient tolerated pureed diet well. plan now to hold off on Gtube for the time being, he will be discharged back to SNF, continue to hold glimeparide and use insulin, conitnue pureed diet, follow up with rad/onc and hematology. continue diflucan for thrush. Time Spent with Patient Time attestation: Total time spent providing and/or coordinating discharge services: Discharge coordination time: Greater than 30 minutes Quality: Stroke Does the patient have a stroke diagnosis?: No Physical Exam Vital Signs: Vital Signs: Last Vital Signs Temp 98.4 F 08/15/21 07:14 Pulse 69 08/15/21 07:14 Resp 20 08/15/21 07:14 BP 159/72 H 08/15/21 07:14 Pulse Ox 97 08/15/21 07:14 Body Mass Index 24.6 General: AO X 3, no acute distress HEENT: thrush, large oropharyngeal mass Resp:? CTA bilateral, no accessory muscles used CVS: S1,S2,RRR GI: soft, non tender, non distended Neuro:? motor grossly intact, alert Psych: appropriate affect, appropriate insight? DS: Data Data Completed and Pending Labs on day of discharge: Laboratory Results - last 24 hr 08/14/21 08/14/21 08/14/21 11:42 16:11 20:18 WBC RBC Hgb Hct MCV MCH MCHC RDW Plt Count MPV Absolute Nucleated RBC Nucleated RBC % (auto) Sodium Potassium Chloride Carbon Dioxide Anion Gap BUN Creatinine Estim Creat Clear Calc Estimated GFR POC Glucose 226 H 283 H 156 H Fasting Glucose Calcium 08/15/21 08/15/21 08/15/21 05:47 05:47 07:13 WBC 6.7 RBC 3.06 L Hgb 9.2 L Hct 26.8 L MCV 87.6 MCH 30.1 MCHC 34.3 RDW 12.4 Plt Count 212 MPV 9.2 L Absolute Nucleated RBC 0.000 Nucleated RBC % (auto) 0.0 Sodium 141 Potassium 5.0 Chloride 107 Carbon Dioxide 30 H Anion Gap 9 L BUN 30 H Creatinine 1.27 Estim Creat Clear Calc 58.5 Estimated GFR 58 POC Glucose 147 H Fasting Glucose 139 H Calcium 8.2 L Discharge Plan Discharge Patient Disposition: Xfer [facility] Discharge Diagnosis: hypoglycemia [facility]errals: [facility]Outside] - 1 Week Sharmila Bahena MD [Primary Care Provider] - 1 Week Discharge Medications: Continued aspirin 81 mg Tablet,Chewable 81 mg PO DAILY RF: 0 brimonidine 0.1 % Drops 1 drp OPHTHALMIC (EYE) BID RF: 0 carvedilol 25 mg Tablet 25 mg PO BID RF: 0 clonidine HCl 0.1 mg Tablet 0.1 mg PO BID RF: 0 omega 9-qdf-nwo-fish oil [Fish Oil] 1,000 mg (120 mg-180 mg) Capsule 1 cap PO TID RF: 0 fluconazole 40 mg/mL Suspension For Reconstitution 200 mg PO DAILY RF: 0 guaifenesin 600 mg Tablet Extended Release 12hr 600 mg PO Q12H PRN (Reason: Congestion) RF: 0 levothyroxine 75 mcg Tablet 75 mcg PO DAILY RF: 0 amlodipine [Norvasc] 10 mg Tablet 10 mg PO DAILY RF: 0 guaifenesin 100 mg/5 mL Syrup 200 mg PO Q6H PRN (Reason: Cough) RF: 0 rosuvastatin 10 mg Tablet 10 mg PO DAILY RF: 0 insulin lispro [Humalog U-100 Insulin] 100 unit/mL Solution 1 sliding scale dose SUBCUT USEASDIRECTD RF: 0 Discontinued glimepiride 4 mg Tablet 4 mg PO DAILY RF: 0 Discharge Orders: Discharge Order (Routine); Ordered 08/15/21 Ordered By: Mookie Amaral Diet: other Activity on Discharge: As tolerated Stand Alone Forms: Patient Portal Discharge page Care Plan Goals: manage dm Health Concerns: large oropharyngeal B cell lymphoma mass and thrush causing dysphagia and hypoglycemia Plan of Treatment: stop glimeperide, use insulin, pureed diet with thin liquids, follow up with hematology and rad/onc, continue antifungal, monitor glucose Assessment: see above
[2021-08-15] MEDS: Aspirin 81 MG TAB.CHEW PO (10:00)
[2021-08-15] MEDS: Atorvastatin Calcium 40 MG TABLET PO (10:00)
[2021-08-15] MEDS: Levothyroxine Sodium 75 MCG TABLET PO (10:00)
[2021-08-15] MEDS: carvediloL 25 MG TABLET PO (10:00)
[2021-08-15] MEDS: Nystatin Oral Susp 500,000 UNIT/5 ML ORAL.SUSP 500000 UNIT PO (10:00)
[2021-08-15] MEDS: cloNIDine HCL 0.1 MG TABLET PO (10:00)
[2021-08-15] MEDS: amLODIPine Besylate 10 MG TABLET PO (10:00)
[2021-08-15] MEDS: Brimonidine Tartrate 0.2% Oph 5 ML BOTTLE 1 DROP EYE-BOTH (10:05)
--- NOTE | 2021-08-15 10:51 | MHC.INPTTRAN ---
A+O and cooperative with care. No complaints of pain or discomfort. Oral pharyngeal mass (lymphoma) causing changes in speech and swallow. Pt with thrush in mouth- using nystatin (do not use fluconazole d/t hypoglycemic effect. Crush meds and meals pureed with thin liquids. Up OOB with 1 assist or uses the urinal. Normal BM yesterday. Pt with pacemaker
== END 2021-08-15 12:41 | disposition skilled nursing facility (03) | DRG 420 ==
LOC: HO.ED 04:20 → HO.EDOVER 04:21 → HO.S3 08-13 13:16
PROVIDERS: Admitting Provider Hospitalist; Emergency Provider Student in an Organized Health Care Education/Training Program; PCP Internal Medicine; Visit Provider Internal Medicine
DX: E11.649 Type 2 diabetes mellitus with hypoglycemia without coma (principal); B37.0 Candidal stomatitis; C83.31 Diffuse large B-cell lymphoma, lymph nodes of head, face, and neck; I13.0 Hypertensive heart and chronic kidney disease with heart failure and stage 1 through stage 4 chronic kidney disease, or unspecified chronic kidney disease; E11.22 Type 2 diabetes mellitus with diabetic chronic kidney disease; I50.32 Chronic diastolic (congestive) heart failure; E03.9 Hypothyroidism, unspecified; Z20.822 Contact with and (suspected) exposure to COVID-19; Z95.0 Presence of cardiac pacemaker; N18.30 Chronic kidney disease, stage 3 unspecified; Z79.4 Long term (current) use of insulin; Z79.82 Long term (current) use of aspirin; Z79.890 Hormone replacement therapy; Z79.899 Other long term (current) drug therapy
CPT/HCPCS: 36415; 80048; 80053; 80076; 81001; 82947; 83735; 85025; 85027; 87635; 92610; 93005; 99285

== ENCOUNTER 2021-10-25 00:45 | Inpatient (IN) | payer MEDICAID, SELFPAY ==
[2021-10-25] VITALS (18 sets, daily range): BP systolic 124–161; BP diastolic 45–83; PULSE 61–89; RESP 16–23; TEMP 36.3–37.4; O2SAT 85–99; BMI 20.3; BMI 24.6
--- NOTE | ~2021-10-25 | XR_ITS ---
EXAMINATION: XR CHEST CLINICAL INFORMATION: Status post intubation. COMPARISON: 10/25/2021 TECHNIQUE: Frontal view of the chest was obtained. FINDINGS: ET tube tip terminates 5 cm from the rafaela. Right IJ central venous catheter terminates in the region of the SVC. NG tube extends into the stomach off the inferior border of the study. Multiple EKG leads overlie the chest. Dual-lead pacemaker overlies left pectoral region with leads terminating in the right atrium and right ventricle. Diffuse patchy airspace opacities are present throughout both lungs. Small bilateral pleural effusions are noted. No pneumothorax. Cardiac and mediastinal contours are normal in size, though obscured by the consolidation. No acute osseous findings. XR/XR chest 1V IMPRESSION: 1. ET tube terminates 5 cm from the rafaela. 2. Worsening of the patchy bilateral diffuse airspace opacities and new small bilateral pleural effusions.
--- NOTE | ~2021-10-25 | US_ITS ---
EXAMINATION: US VENOUS ULTRASOUND WITH DOPPLER LOWER EXTREMITY, BILATERAL CLINICAL INFORMATION: COVID+, elevated d-dimer. Assess for occult DVT. COMPARISON: None TECHNIQUE: Ultrasound of the deep veins is performed from the hip to the calf with compression sonography and color and pulse Doppler assessment. Spectral analysis with color-flow imaging is performed. FINDINGS: RIGHT: There is normal venous compression and respiratory variation and augmented flow. The visualized common femoral vein, superficial femoral vein, profunda femoral vein, popliteal vein, and the trifurcation region shows no evidence of deep venous thrombosis. No popliteal fossa cyst demonstrated. LEFT: There is normal venous compression and respiratory variation and augmented flow. The visualized common femoral vein, superficial femoral vein, profunda femoral vein, popliteal vein, and the trifurcation region shows no evidence of deep venous thrombosis. No popliteal fossa cyst demonstrated. US/US venous duplex LE BI IMPRESSION: No DVT demonstrated in the bilateral lower extremity.
--- NOTE | ~2021-10-25 | XR_ITS ---
EXAMINATION: XR CHEST CLINICAL INFORMATION: Covid question pneumothorax COMPARISON: 10/30/2021 TECHNIQUE: Frontal view of the chest was obtained. FINDINGS: Again seen are bilateral diffuse pulmonary infiltrates without significant interval change when compared to the prior. No pneumothorax is seen. A right IJ catheter is present with its tip in the SVC. An ET tube is present 5.5 cm above the rafaela. A small left-sided pleural effusion appears slightly decreased in size. A small right-sided pleural effusion remains present. XR/XR chest 1V IMPRESSION: 1. No pneumothorax. 2. ET tube 5.6 cm above the rafaela with right IJ line in good position. 3. Diffuse airspace opacities again seen.
--- NOTE | ~2021-10-25 | XR_ITS ---
EXAMINATION: XR CHEST CLINICAL INFORMATION: Shortness of breath COMPARISON: None TECHNIQUE: Frontal view of the chest was obtained. FINDINGS: Right chest wall CT compatible port terminates near the cavoatrial junction. Left chest wall pacer with leads over the right atrium and right ventricle. The lungs are well expanded. Patchy diffuse bilateral airspace opacities are noted. No effusion. No pneumothorax. The cardiomediastinal silhouette is within normal limits. XR/XR chest 1V IMPRESSION: Patchy bilateral airspace opacities suspicious for infectious/inflammatory process. Consider Covid.
--- NOTE | ~2021-10-25 | XR_ITS ---
EXAMINATION: XR CHEST CLINICAL INFORMATION: Confirm placement of dialysis catheter, left IJ. COMPARISON: Chest radiograph dated from 11/01/2021. TECHNIQUE: AP view of the chest was obtained. FINDINGS: Newly placed left IJ dialysis catheter with tip overlying the right atrium. No postprocedural pneumothorax. The endotracheal tube terminates at 4.9 cm above the rafaela. A left-sided pacer is redemonstrated with leads in similar positioning to prior. A right-sided CT compatible chest port terminates at the level of the cavoatrial junction, unchanged. An enteric tube terminates out of the [id number]. Stable appearance of the cardiomediastinal silhouette. Unchanged multifocal airspace opacities and right greater than left pleural effusions. No acute osseous abnormalities. XR/XR chest 1V IMPRESSION: Left IJ dialysis catheter in appropriate positioning. Endotracheal tube terminates at 4.9 cm above the rafaela. Multifocal airspace opacities and bilateral pleural effusions are not significantly changed.
--- NOTE | 2021-10-25 01:08 | ED_ITS ---
HPI - SOB/Dyspnea General Chief Complaint: Upper Respiratory Symptoms Stated Complaint: unknown Time Seen by Provider: 10/25/21 01:07 Source: patient and EMS Mode of arrival: EMS History of Present Illness HPI Narrative: 61-year-old male with history of lymphoma, heart failure, CKD, and diabetes who is brought in by EMS for increasing hypoxia and reports that patient is post COVID. And that he has pneumonia. Patient otherwise denies any fever, chills, abdominal pain, diarrhea, nausea, vomiting. Related Data Home Medications Medication Instructions Recorded Confirmed amlodipine 10 mg tablet (Norvasc) 10 mg PO DAILY 08/12/21 08/12/21 aspirin 81 mg chewable tablet 81 mg PO DAILY 08/12/21 08/12/21 brimonidine 0.1 % eye drops 1 drp OPHTHALMIC (EYE) BID 08/12/21 08/12/21 carvedilol 25 mg tablet 25 mg PO BID 08/12/21 08/12/21 clonidine HCl 0.1 mg tablet 0.1 mg PO BID 08/12/21 08/12/21 fluconazole 40 mg/mL oral 200 mg PO DAILY 08/12/21 08/12/21 suspension guaifenesin 100 mg/5 mL oral syrup 200 mg PO Q6H PRN 08/12/21 08/12/21 guaifenesin 600 mg tablet, 600 mg PO Q12H PRN 08/12/21 08/12/21 extended release 12 hr insulin lispro 100 unit/mL 1 sliding scale dose SUBCUT 08/12/21 08/12/21 subcutaneous solution (Humalog USEASDIRECTD U-100 Insulin) levothyroxine 75 mcg tablet 75 mcg PO DAILY 08/12/21 08/12/21 omega 5-uxr-gdo-fish oil 1,000 mg 1 cap PO TID 08/12/21 08/12/21 (120 mg-180 mg) capsule (Fish Oil) rosuvastatin 10 mg tablet 10 mg PO DAILY 08/12/21 08/12/21 Allergies Allergy/AdvReac Type Severity Reaction Status Date / Time No Known Allergies Allergy Unverified 08/12/21 02:07 Review of Systems Review of Systems: Pertinent positives and negatives as stated in HPI 10 point review of systems is otherwise negative. PMFSH Past Medical History Source: nursing notes reviewed Medical History Chronic diastolic CHF (congestive heart failure) CKD (chronic kidney disease), stage II CKD (chronic kidney disease), stage III Complete heart block Diabetes Diffuse large B cell lymphoma HTN (hypertension) Hypothyroid Orthostatic hypotension Surgical History H/O right hemicolectomy History of appendectomy S/P placement of cardiac pacemaker Social History Social History Household Members: Other Household Members Other:: long-term Housing: Group Home Do you presently have visiting nurse or other home services: Yes Alcohol intake: never Patient Tobacco Use Status: Never used Tobacco Advance Directives: Yes Advance Directives on File: Yes Advance Directives Date on File: 08/12/21 service: No Current occupational status: disabled Physical Exam Vital Signs: Vital Signs: Last Vital Signs Temp 97.3 F 10/25/21 03:06 Pulse 67 10/25/21 03:06 Resp 21 H 10/25/21 03:06 BP 129/45 L 10/25/21 03:06 Pulse Ox 99 10/25/21 03:06 Oxygen Flow Rate 7 10/25/21 01:11 BMI result Body Mass Index 20.3 VITAL SIGNS: Reviewed. GENERAL: Chronically ill, in poor health, mild distress. HEAD: Normocephalic/atraumatic EYES: PERRLA, EOMI EARS: Ext canals without abnormality, TMs non-bulging and non-erythematous NOSE: Nares patent bilateral OROPHARYNX: no oral lesions noted, posterior pharynx clear, dry mucosa, multiple dental caries NECK: Supple, no adenopathy LUNGS: Bibasilar decrease in breath sounds without wheeze/rhonchi, mild tachypnea but completing sentences SpO2<94> CARDIOVASCULAR: Regular rate and rhythm without noted murmurs, no JVD or lower extremity edema. ABDOMEN: Soft, non-tender, non-distended with bowel sounds. MUSCULOSKELETAL: No tenderness, deformities, or effusions noted on gross ins pection. EXTREMITIES: No cyanosis, clubbing or edema. SKIN: Inspection of the skin reveals no rashes NEUROLOGIC: Alert and oriented x 4. Strength and sensation to light touch were grossly intact x 4. Course Course Course Narrative: 61-year-old male with history and clinical presentation consistent with acute respiratory failure secondary to suspected COVID-19 pneumonia which was further supported by chest x-ray as well as COVID it 19 swab being being positive. Otherwise on review of all investigations patient has chronic stable anemia no evidence of clinical heart failure despite BNP being mildly elevated. Although this is a SIRS response patient is COVID-19 positive and no clinical suspicion for bacterial component. This case was discussed with the inpatient hospitalist who accepts admission. Patient is currently respiratory stable on high-flow. MDM - SOB/Dyspnea Lab Data Result diagrams: 10/25/21 01:55 10/25/21 01:55 Labs: Lab Results 10/25/21 10/25/21 10/25/21 Range/Units 01:55 01:55 01:55 WBC 9.8 (4.8-10.8) X10*3/uL RBC 2.63 L (4.60-5.80) X10*6/uL Hgb 8.0 L (14.0-18.0) g/dl Hct 23.1 L (42.0-52.0) % MCV 87.8 (80.0-98.0) fL MCH 30.4 (27.0-33.0) pg MCHC 34.6 (31.0-36.0) g/dl RDW 13.3 (11.0-16.0) % Plt Count 143 L (160-400) X10*3/uL MPV 9.2 L (9.4-12.4) fL Immature Gran % (Auto) 1.0 H (0.0-0.4) % Neut % (Auto) 95.8 H (45-73) % Lymph % (Auto) 0.6 L (20-40) % Overton % (Auto) 2.5 (2-11) % Eos % (Auto) 0.0 (0-4) % Baso % (Auto) 0.1 (0-2) % Lymph # (Auto) 0.1 L (1.2-4.9) X10*3/uL Overton # (Auto) 0.2 (0.1-1.2) X10*3/uL Eos # (Auto) 0.0 (0.0-0.4) X10*3/uL Baso # (Auto) 0.0 (0.0-0.2) X10*3/uL Abs Immat Gran (auto) 0.10 H (0.00-0.03) X10*3/uL Absolute Neuts (auto) 9.4 H (2.0-8.3) x10*3/uL Absolute Nucleated RBC 0.000 (0.0-0.012) X10*3/uL Nucleated RBC % (auto) 0.0 (0.0-0.2) /100WBC Smear Tech's Comments VERIFIED PT (9.9-13.0) SEC INR (0.9-1.1) O2 Saturation % ABG pH at Pt Temp (7.35-7.45) ABG pH (Temp Correct) (7.35-7.45) ABG pCO2 at Pt Temp (32-45) mmHg ABG pCO2 (Temp Corrct (32-45) mmHg ABG pO2 at Pt Temp (83-108) mmHg ABG pO2 (Temp Correct (83-108) ABG HCO3 (22-26) mmol/L ABG Base Excess (Actual) mmol/L VBG pH (7.32-7.43) VBG pCO2 mmHg VBG pO2 mmHg VBG HCO3 (22-26) mmol/L VBG O2 Saturation % VBG Base Excess mmol/L Sodium 140 (135-145) mmol/L Potassium 3.9 D (3.3-5.1) mmol/L Chloride 108 (96-108) mmol/L Carbon Dioxide 25 (22-29) mmol/L Anion Gap 11 L (12-20) BUN 30 H (9-16) mg/dL Creatinine 1.00 (0.5-1.4) mg/dL Estim Creat Clear Calc 65.5 Estimated GFR > 60 Random Glucose 91 D (60-115) mg/dL Lactic Acid (0.5-2.0) mmol/L Calcium 7.5 L D (8.4-10.2) mg/dL Total Bilirubin 0.5 (0.0-1.0) mg/dL AST 25 (5-37) U/L ALT 23 (0-40) U/L Alkaline Phosphatase 100 D (39-117) U/L B-Natriuretic Peptide 111 H (<100) pg/mL Total Protein 3.8 L D (6.5-8.0) g/dL Albumin 2.0 L (3.5-5.0) g/dL Acetone, Qual Negative (Negative) COVID-19 (AVEL) (Negative) COVID-19 Clin Com 10/25/21 10/25/21 10/25/21 Range/Units 01:55 01:55 01:58 WBC (4.8-10.8) X10*3/uL RBC (4.60-5.80) X10*6/uL Hgb (14.0-18.0) g/dl Hct (42.0-52.0) % MCV (80.0-98.0) fL MCH (27.0-33.0) pg MCHC (31.0-36.0) g/dl RDW (11.0-16.0) % Plt Count (160-400) X10*3/uL MPV (9.4-12.4) fL Immature Gran % (Auto) (0.0-0.4) % Neut % (Auto) (45-73) % Lymph % (Auto) (20-40) % Overton % (Auto) (2-11) % Eos % (Auto) (0-4) % Baso % (Auto) (0-2) % Lymph # (Auto) (1.2-4.9) X10*3/uL Overton # (Auto) (0.1-1.2) X10*3/uL Eos # (Auto) (0.0-0.4) X10*3/uL Baso # (Auto) (0.0-0.2) X10*3/uL Abs Immat Gran (auto) (0.00-0.03) X10*3/uL Absolute Neuts (auto) (2.0-8.3) x10*3/uL Absolute Nucleated RBC (0.0-0.012) X10*3/uL Nucleated RBC % (auto) (0.0-0.2) /100WBC Smear Tech's Comments PT 12.6 (9.9-13.0) SEC INR 1.1 (0.9-1.1) O2 Saturation % ABG pH at Pt Temp (7.35-7.45) ABG pH (Temp Correct) (7.35-7.45) ABG pCO2 at Pt Temp (32-45) mmHg ABG pCO2 (Temp Corrct (32-45) mmHg ABG pO2 at Pt Temp (83-108) mmHg ABG pO2 (Temp Correct (83-108) ABG HCO3 (22-26) mmol/L ABG Base Excess (Actual) mmol/L VBG pH 7.53 H (7.32-7.43) VBG pCO2 29 mmHg VBG pO2 49 mmHg VBG HCO3 24 (22-26) mmol/L VBG O2 Saturation 82.0 % VBG Base Excess 2.3 mmol/L Sodium (135-145) mmol/L Potassium (3.3-5.1) mmol/L Chloride (96-108) mmol/L Carbon Dioxide (22-29) mmol/L Anion Gap (12-20) BUN (9-16) mg/dL Creatinine (0.5-1.4) mg/dL Estim Creat Clear Calc Estimated GFR Random Glucose (60-115) mg/dL Lactic Acid 0.8 (0.5-2.0) mmol/L Calcium (8.4-10.2) mg/dL Total Bilirubin (0.0-1.0) mg/dL AST (5-37) U/L ALT (0-40) U/L Alkaline Phosphatase (39-117) U/L B-Natriuretic Peptide (<100) pg/mL Total Protein (6.5-8.0) g/dL Albumin (3.5-5.0) g/dL Acetone, Qual (Negative) COVID-19 (AVEL) (Negative) COVID-19 Clin Com 10/25/21 10/25/21 Range/Units 02:32 03:00 WBC (4.8-10.8) X10*3/uL RBC (4.60-5.80) X10*6/uL Hgb (14.0-18.0) g/dl Hct (42.0-52.0) % MCV (80.0-98.0) fL MCH (27.0-33.0) pg MCHC (31.0-36.0) g/dl RDW (11.0-16.0) % Plt Count (160-400) X10*3/uL MPV (9.4-12.4) fL Immature Gran % (Auto) (0.0-0.4) % Neut % (Auto) (45-73) % Lymph % (Auto) (20-40) % Overton % (Auto) (2-11) % Eos % (Auto) (0-4) % Baso % (Auto) (0-2) % Lymph # (Auto) (1.2-4.9) X10*3/uL Overton # (Auto) (0.1-1.2) X10*3/uL Eos # (Auto) (0.0-0.4) X10*3/uL Baso # (Auto) (0.0-0.2) X10*3/uL Abs Immat Gran (auto) (0.00-0.03) X10*3/uL Absolute Neuts (auto) (2.0-8.3) x10*3/uL Absolute Nucleated RBC (0.0-0.012) X10*3/uL Nucleated RBC % (auto) (0.0-0.2) /100WBC Smear Tech's Comments PT (9.9-13.0) SEC INR (0.9-1.1) O2 Saturation 97.0 % ABG pH at Pt Temp 7.53 H (7.35-7.45) ABG pH (Temp Correct) 7.54 H (7.35-7.45) ABG pCO2 at Pt Temp 29 L (32-45) mmHg ABG pCO2 (Temp Corrct 28 L (32-45) mmHg ABG pO2 at Pt Temp 88 (83-108) mmHg ABG pO2 (Temp Correct 84 (83-108) ABG HCO3 24 (22-26) mmol/L ABG Base Excess (Actual) 2.3 mmol/L VBG pH (7.32-7.43) VBG pCO2 mmHg VBG pO2 mmHg VBG HCO3 (22-26) mmol/L VBG O2 Saturation % VBG Base Excess mmol/L Sodium (135-145) mmol/L Potassium (3.3-5.1) mmol/L Chloride (96-108) mmol/L Carbon Dioxide (22-29) mmol/L Anion Gap (12-20) BUN (9-16) mg/dL Creatinine (0.5-1.4) mg/dL Estim Creat Clear Calc Estimated GFR Random Glucose (60-115) mg/dL Lactic Acid (0.5-2.0) mmol/L Calcium (8.4-10.2) mg/dL Total Bilirubin (0.0-1.0) mg/dL AST (5-37) U/L ALT (0-40) U/L Alkaline Phosphatase (39-117) U/L B-Natriuretic Peptide (<100) pg/mL Total Protein (6.5-8.0) g/dL Albumin (3.5-5.0) g/dL Acetone, Qual (Negative) COVID-19 (AVEL) Positive A (Negative) COVID-19 Clin Com See Note Critical Care Time Critical Care Time Critical Care Time: Yes Total Critical Care Time: 30 Attestation: I personally attest to this time spent taking care of the patient. Discharge Plan Discharge Clinical Impression: Pneumonia due to COVID-19 virus, Acute respiratory failure Patient Disposition: Admitted As Inpatient Prescriptions: No Action aspirin 81 mg Tablet,Chewable 81 mg PO DAILY RF: 0 brimonidine 0.1 % Drops 1 drp OPHTHALMIC (EYE) BID RF: 0 carvedilol 25 mg Tablet 25 mg PO BID RF: 0 clonidine HCl 0.1 mg Tablet 0.1 mg PO BID RF: 0 omega 7-dbd-clr-fish oil [Fish Oil] 1,000 mg (120 mg-180 mg) Capsule 1 cap PO TID RF: 0 fluconazole 40 mg/mL Suspension For Reconstitution 200 mg PO DAILY RF: 0 guaifenesin 600 mg Tablet Extended Release 12hr 600 mg PO Q12H PRN (Reason: Congestion) RF: 0 levothyroxine 75 mcg Tablet 75 mcg PO DAILY RF: 0 amlodipine [Norvasc] 10 mg Tablet 10 mg PO DAILY RF: 0 guaifenesin 100 mg/5 mL Syrup 200 mg PO Q6H PRN (Reason: Cough) RF: 0 rosuvastatin 10 mg Tablet 10 mg PO DAILY RF: 0 insulin lispro [Humalog U-100 Insulin] 100 unit/mL Solution 1 sliding scale dose SUBCUT USEASDIRECTD RF: 0
--- NOTE | 2021-10-25 01:09 | ECG_ITS ---
Test Reason : SOB Blood Pressure : / mmHG Vent. Rate : 069 BPM Atrial Rate : 069 BPM P-R Int : 218 ms QRS Dur : 130 ms QT Int : 424 ms P-R-T Axes : 044 185 109 degrees QTc Int : 454 ms Atrial-sensed ventricular-paced rhythm with prolonged AV conduction Abnormal ECG When compared with ECG of 12-AUG-2021 02:30, Electronic ventricular pacemaker has replaced Sinus rhythm Referred By: Vicky Starkey Electronically Signed By:Storm Neves
--- NOTE | 2021-10-25 01:18 | PC.NURSE ---
pt post mila, garzon all day in the 80's. pt placed on [id number] now stating in low 90's. provider is aware and respiratory called.
--- NOTE | 2021-10-25 01:33 | PC.NURSE ---
pt is placed on high flow staying in the 90's.
--- NOTE | 2021-10-25 01:42 | PM.IMHP ---
History of Present Illness Date of Service: 10/25/21 Chief Complaint: nausea/vomiting [facility] Medical History Chronic diastolic CHF (congestive heart failure) CKD (chronic kidney disease), stage II CKD (chronic kidney disease), stage III Complete heart block Diabetes Diffuse large B cell lymphoma HTN (hypertension) Hypothyroid Orthostatic hypotension Pertinent family history: reviewed Surgical History H/O right hemicolectomy History of appendectomy S/P placement of cardiac pacemaker Social History Household Members: Other Household Members Other:: [facility] Housing: Detention Do you presently have visiting nurse or other home services: Yes Alcohol intake: never Patient Tobacco Use Status: Never used Tobacco Advance Directives: Yes Advance Directives on File: Yes Advance Directives Date on File: 08/12/21 service: No Current occupational status: disabled Meds Allergies Allergy/AdvReac Type Severity Reaction Status Date / Time No Known Allergies Allergy Unverified 08/12/21 02:07 Home Medications Medication Instructions Recorded Confirmed Last Taken Type amlodipine 10 mg tablet (Norvasc) 10 mg PO DAILY 08/12/21 08/12/21 Unknown History aspirin 81 mg chewable tablet 81 mg PO DAILY 08/12/21 08/12/21 Unknown History brimonidine 0.1 % eye drops 1 drp OPHTHALMIC (EYE) BID 08/12/21 08/12/21 Unknown History carvedilol 25 mg tablet 25 mg PO BID 08/12/21 08/12/21 Unknown History clonidine HCl 0.1 mg tablet 0.1 mg PO BID 08/12/21 08/12/21 Unknown History fluconazole 40 mg/mL oral 200 mg PO DAILY 08/12/21 08/12/21 Unknown History suspension guaifenesin 100 mg/5 mL oral syrup 200 mg PO Q6H PRN 08/12/21 08/12/21 Unknown History guaifenesin 600 mg tablet, 600 mg PO Q12H PRN 08/12/21 08/12/21 Unknown History extended release 12 hr insulin lispro 100 unit/mL 1 sliding scale dose SUBCUT 08/12/21 08/12/21 Unknown History subcutaneous solution (Humalog USEASDIRECTD U-100 Insulin) levothyroxine 75 mcg tablet 75 mcg PO DAILY 08/12/21 08/12/21 Unknown History omega 9-tie-jtq-fish oil 1,000 mg 1 cap PO TID 08/12/21 08/12/21 Unknown History (120 mg-180 mg) capsule (Fish Oil) rosuvastatin 10 mg tablet 10 mg PO DAILY 08/12/21 08/12/21 Unknown History Physical Exam Vital Signs and Narrative: Vital Signs: Last Vital Signs Temp 99.3 F 10/25/21 01:11 Pulse 86 10/25/21 01:11 Resp 20 10/25/21 01:36 BP 129/57 L 10/25/21 01:11 Pulse Ox 86 L 10/25/21 01:11 Oxygen Flow Rate 7 10/25/21 01:11 BMI result Body Mass Index 20.3 Assessment and Plan (1) Ileitis: Status: Acute (2) Diabetes: Status: Acute Quality Stroke Does the patient have a stroke diagnosis?: No VTE Prior VTE?: No VTE Risk Level:: Medical - moderate - high VTE Device Contraindication: N/A - Device Ordered VTE Drug Contraindication: Treatment Not Indicated
[2021-10-25 02:05] LABS: Basophils Percent Auto 0.1 % (0-2); Hematocrit 23.1 % (42.0-52.0); Lymphocytes Absolute Auto 0.1 X10*3/uL (1.2-4.9); Lymphocytes Percent Auto 0.6 % (20-40); MANUAL DIFF FLAG SCAN; Mean Corpuscular HGB Conc 34.6 g/dl (31.0-36.0); Mean Corpuscular Hemoglobin 30.4 pg (27.0-33.0); Mean Corpuscular Volume 87.8 fL (80.0-98.0); Mean Platelet Volume 9.2 fL (9.4-12.4); Monocytes Absolute Auto 0.2 X10*3/uL (0.1-1.2); Monocytes Percent Auto 2.5 % (2-11); Neutrophils Absolute Auto 9.4 x10*3/uL (2.0-8.3); Neutrophils Percent Auto 95.8 % (45-73); Platelet Count 143 X10*3/uL (160-400); Red Blood Count 2.63 X10*6/uL (4.60-5.80); Red Cell Distribution Width 13.3 % (11.0-16.0); SCAN SMEAR FLAG 1; Venous Blood Gas Refer to POC result; White Blood Count 9.8 X10*3/uL (4.8-10.8)
[2021-10-25 02:07] LABS: VBG Base Excess 2.3 mmol/L; VBG HCO3 24 mmol/L (22-26); VBG pCO2 29 mmHg; VBG pH 7.53 (7.32-7.43); VBG pO2 49 mmHg
[2021-10-25 02:14] LABS: Acetone, serum QL Negative (Negative); INTERNATIONAL NORM RATIO 1.1 (0.9-1.1); Prothrombin Time 12.6 SEC (9.9-13.0)
[2021-10-25 02:18] LABS: Lactic Acid 0.8 mmol/L (0.5-2.0)
[2021-10-25 02:26] LABS: SLIDE REVIEW VERIFIED
[2021-10-25 02:27] LABS: B Type Natriuretic Peptide 111 pg/mL (<100)
[2021-10-25 02:35] LABS: Alanine Aminotransferase 23 U/L (0-40); Alkaline Phosphatase 100 U/L (39-117); Anion Gap 11 (12-20); Aspartate Amino Transferase 25 U/L (5-37); Bilirubin Total 0.5 mg/dL (0.0-1.0); Blood Urea Nitrogen 30 mg/dL (9-16); Calcium 7.5 mg/dL (8.4-10.2); Carbon Dioxide 25 mmol/L (22-29); Chloride 108 mmol/L (96-108); Creatinine Clr Calc Pharmacy 65.5; Estimated Glomerular Filt Rate > 60; Glucose Random 91 mg/dL (60-115); Potassium 3.9 mmol/L (3.3-5.1); Sodium 140 mmol/L (135-145); Total Protein 3.8 g/dL (6.5-8.0)
[2021-10-25] MEDS: cefTRIAXone sodium 1 GM in 0.9 % Sodium Chloride 50 ML IV (02:37)
[2021-10-25] MEDS: Azithromycin 500 MG in 0.9 % Sodium Chloride 250 ML 125 MG IV (02:37)
[2021-10-25 02:43] LABS: IDNOW Serial# 9DD0AD1C
[2021-10-25 02:46] LABS: COVID-19 Test Positive (Negative)
[2021-10-25 03:08] LABS: ABG Base Excess 2.3 mmol/L; ABG HCO3 24 mmol/L (22-26); ABG pCO2 29 mmHg (32-45); ABG pCO2 TC 28 mmHg (32-45); ABG pH 7.53 (7.35-7.45); ABG pH TC 7.54 (7.35-7.45); ABG pO2 88 mmHg (83-108); ABG pO2 TC 84 (83-108)
[2021-10-25 03:09] LABS: ABG Refer to POC result
[2021-10-25] MEDS: 0.9 % Sodium Chloride 500 ML 999 ML IV (03:25)
--- NOTE | 2021-10-25 04:17 | P.HPHOSP_ITS ---
History of Present Illness Date of Service: 10/25/21 Chief Complaint: Shortness of breath 61-year-old male with a past medical history of hypertension, hyperlipidemia, diabetes, chronic kidney disease, diastolic CHF, diffuse large B-cell lymphoma received chemotherapy 2 weeks ago; hypothyroidism,. Presented to the hospital with a chief complaint of shortness of breath. Patient reports that he was diagnosed with COVID few days ago; has been having shortness of breath and generalized weakness; also has decreased oral intake; S shortness of breath is gradually worsening decided to come to the ER for further evaluation. Denies any chest pain palpitations lightheadedness or dizziness. Denies any nausea vomiting diarrhea. Reports that he had oropharyngeal mass-diagnosed diffuse large cell B-cell lymp venu; received chemotherapy about 2 weeks ago via port on the chest; Denies any numbness tingling or focal weakness. Review of all other systems is negative except mentioned above ER course: Per ER team patient on presentation noted to be mildly in respiratory distress; placed on supplemental oxygen; later in noted to have increased oxygen requirement; subsequently placed on high-flow nasal cannula with improvement in oxygenation; patient was given empiric antibiotics. Admitted to the hospital for further management. Chest x-ray showed patchy infiltrates consistent with COVID-19. [facility] Medical History (Updated 10/25/21 @ 04:18 by Ethan Browne MD) Chronic diastolic CHF (congestive heart failure) CKD (chronic kidney disease), stage II CKD (chronic kidney disease), stage III Complete heart block Diabetes Diffuse large B cell lymphoma HTN (hypertension) Hypothyroid Orthostatic hypotension Pertinent family history: Reviewed Surgical History H/O right hemicolectomy History of appendectomy S/P placement of cardiac pacemaker Social History Household Members: Other Household Members Other:: custodial Housing: Residential Do you presently have visiting nurse or other home services: Yes Alcohol intake: never Patient Tobacco Use Status: Never used Tobacco Advance Directives: Yes Advance Directives on File: Yes Advance Directives Date on File: 08/12/21 service: No Current occupational status: disabled Meds Allergies Allergy/AdvReac Type Severity Reaction Status Date / Time No Known Allergies Allergy Unverified 08/12/21 02:07 Active Medications: Current Medications Acetaminophen (Acetaminophen 325 Mg Tablet) 650 mg PO Q6H PRN PRN Reason: Pain, Mild (Pain Scale 1-3) Dexamethasone Sodium Phosphate (Dexamethasone Sod Phosphate 4 Mg/Ml Vial) 6 mg IVPUSH DAILY [facility] Dextrose (Dextrose 50 % 25 Gm/50 Ml Vial) 25 gm IVPUSH Q15M PRN; Protocol PRN Reason: per Hypoglycemia Standing Ord. Glucose (Glucose Gel 15 Gm Gel..Gram.) 15 gm PO Q15M PRN; Protocol PRN Reason: per Hypoglycemia Standing Ord. Hydromorphone HCl (Hydromorphone Hcl 0.5 Mg/0.5 Ml Syringe) 0.5 mg IVPUSH Q4H PRN; Protocol PRN Reason: Breakthrough Pain Ceftriaxone Sodium 1 gm/ (Sodium Chloride) 50 mls @ 100 mls/hr IV Q24H [facility] Azithromycin 500 mg/ Sodium (Chloride) 250 mls @ 125 mls/hr IV Q24H [facility] Insulin Human Lispro (Insulin Lispro 100 Unit/Ml 3 Ml Vial) 0 unit SUBCUT QIDACHS [facility]; Protocol Melatonin (Melatonin 3 Mg Tablet) 6 mg PO BEDTIME PRN PRN Reason: Insomnia Morphine Sulfate (Morphine Sulfate 2 Mg/Ml Cartridge) 1 mg IVPUSH Q4H PRN; Protocol PRN Reason: pain/sob Senna (Sennosides 8.6 Mg Tablet) 17.2 mg PO BEDTIME PRN PRN Reason: Constipation Sodium Chloride (0.9 % Sodium Chloride Flush 3 Ml Syringe) [address] [facility] Home Medications Medication Instructions Recorded Confirmed Last Taken Type amlodipine 10 mg tablet (Norvasc) 10 mg PO DAILY 08/12/21 08/12/21 Unknown History aspirin 81 mg chewable tablet 81 mg PO DAILY 08/12/21 08/12/21 Unknown History brimonidine 0.1 % eye drops 1 drp OPHTHALMIC (EYE) BID 08/12/21 08/12/21 Unknown History carvedilol 25 mg tablet 25 mg PO BID 08/12/21 08/12/21 Unknown History clonidine HCl 0.1 mg tablet 0.1 mg PO BID 08/12/21 08/12/21 Unknown History fluconazole 40 mg/mL oral 200 mg PO DAILY 08/12/21 08/12/21 Unknown History suspension guaifenesin 100 mg/5 mL oral syrup 200 mg PO Q6H PRN 08/12/21 08/12/21 Unknown History guaifenesin 600 mg tablet, 600 mg PO Q12H PRN 08/12/21 08/12/21 Unknown History extended release 12 hr insulin lispro 100 unit/mL 1 sliding scale dose SUBCUT 08/12/21 08/12/21 Unknown History subcutaneous solution (Humalog USEASDIRECTD U-100 Insulin) levothyroxine 75 mcg tablet 75 mcg PO DAILY 08/12/21 08/12/21 Unknown History omega 9-myb-irf-fish oil 1,000 mg 1 cap PO TID 08/12/21 08/12/21 Unknown History (120 mg-180 mg) capsule (Fish Oil) rosuvastatin 10 mg tablet 10 mg PO DAILY 08/12/21 08/12/21 Unknown History Physical Exam Vital Signs and Narrative: Vital Signs: Last Vital Signs Temp 97.3 F 10/25/21 03:06 Pulse 67 10/25/21 03:06 Resp 21 H 10/25/21 03:06 BP 129/45 L 10/25/21 03:06 Pulse Ox 99 10/25/21 03:06 Oxygen Flow Rate 7 10/25/21 01:11 BMI result Body Mass Index 20.3 Gen: Appears be in no acute distress; on high-flow nasal cannula; able to finish sentences. HEENT: NCAT, Moist mucosa. Pulmonary: Coarse breath sounds CVS: Normal S1-S2 Abdomen: BS+, Soft, Nontender Extremities: Warm well perfused Neuro: Alert and awake. Results Labs CBC and Chem 7: 10/25/21 01:55 10/25/21 01:55 Labs: Laboratory Results - last 24 hr 10/25/21 10/25/21 10/25/21 01:55 01:55 01:55 MCV 87.8 MCH 30.4 MCHC 34.6 RDW 13.3 Plt Count 143 L MPV 9.2 L Immature Gran % (Auto) 1.0 H Neut % (Auto) 95.8 H Lymph % (Auto) 0.6 L [place] % (Auto) 2.5 Eos % (Auto) 0.0 Baso % (Auto) 0.1 Lymph # (Auto) 0.1 L [place] # (Auto) 0.2 Eos # (Auto) 0.0 Baso # (Auto) 0.0 Abs Immat Gran (auto) 0.10 H Absolute Neuts (auto) 9.4 H Absolute Nucleated RBC 0.000 Nucleated RBC % (auto) 0.0 Smear Tech's Comments VERIFIED PT INR O2 Saturation ABG pH at Pt Temp ABG pH (Temp Correct) ABG pCO2 at Pt Temp ABG pCO2 (Temp Corrct ABG pO2 at Pt Temp ABG pO2 (Temp Correct ABG HCO3 ABG Base Excess (Actual) VBG pH VBG pCO2 VBG pO2 VBG HCO3 VBG O2 Saturation VBG Base Excess Anion Gap 11 L Estim Creat Clear Calc 65.5 Estimated GFR > 60 Random Glucose 91 D Lactic Acid Calcium 7.5 L D Total Bilirubin 0.5 AST 25 ALT 23 Alkaline Phosphatase 100 D B-Natriuretic Peptide 111 H Total Protein 3.8 L D Albumin 2.0 L Acetone, Qual Negative COVID-19 ([facility]) COVID-19 Clin [facility] 10/25/21 10/25/21 10/25/21 01:55 01:55 01:58 MCV MCH MCHC RDW Plt Count MPV Immature Gran % (Auto) Neut % (Auto) Lymph % (Auto) [place] % (Auto) Eos % (Auto) Baso % (Auto) Lymph # (Auto) [place] # (Auto) Eos # (Auto) Baso # (Auto) Abs Immat Gran (auto) Absolute Neuts (auto) Absolute Nucleated RBC Nucleated RBC % (auto) Smear Tech's Comments PT 12.6 INR 1.1 O2 Saturation ABG pH at Pt Temp ABG pH (Temp Correct) ABG pCO2 at Pt Temp ABG pCO2 (Temp Corrct ABG pO2 at Pt Temp ABG pO2 (Temp Correct ABG HCO3 ABG Base Excess (Actual) VBG pH 7.53 H VBG pCO2 29 VBG pO2 49 VBG HCO3 24 VBG O2 Saturation 82.0 VBG Base Excess 2.3 Anion Gap Estim Creat Clear Calc Estimated GFR Random Glucose Lactic Acid 0.8 Calcium Total Bilirubin AST ALT Alkaline Phosphatase B-Natriuretic Peptide Total Protein Albumin Acetone, Qual COVID-19 ([facility]) COVID-19 Clin Com 10/25/21 10/25/21 02:32 03:00 MCV MCH MCHC RDW Plt Count MPV Immature Gran % (Auto) Neut % (Auto) Lymph % (Auto) [place] % (Auto) Eos % (Auto) Baso % (Auto) Lymph # (Auto) [place] # (Auto) Eos # (Auto) Baso # (Auto) Abs Immat Gran (auto) Absolute Neuts (auto) Absolute Nucleated RBC Nucleated RBC % (auto) Smear Tech's Comments PT INR O2 Saturation 97.0 ABG pH at Pt Temp 7.53 H ABG pH (Temp Correct) 7.54 H ABG pCO2 at Pt Temp 29 L ABG pCO2 (Temp Corrct 28 L ABG pO2 at Pt Temp 88 ABG pO2 (Temp Correct 84 ABG HCO3 24 ABG Base Excess (Actual) 2.3 VBG pH VBG pCO2 VBG pO2 VBG HCO3 VBG O2 Saturation VBG Base Excess Anion Gap Estim Creat Clear Calc Estimated GFR Random Glucose Lactic Acid Calcium Total Bilirubin AST ALT Alkaline Phosphatase B-Natriuretic Peptide Total Protein Albumin Acetone, Qual COVID-19 ([facility]) Positive A COVID-19 Clin Com See Note Imaging Radiologist's Impressions: Impressions Chest X-Ray 10/25/21 01:45 IMPRESSION: Patchy bilateral airspace opacities suspicious for infectious/inflammatory process. Consider Covid. Assessment and Plan (1) Pneumonia due to COVID-19 virus: Status: Acute (2) Acute respiratory failure: Status: Acute (3) Diabetes: Status: Acute (4) CKD (chronic kidney disease), stage III: Status: Acute (5) Chronic diastolic CHF (congestive heart failure): Status: Acute (6) Diffuse large B cell lymphoma: Status: Acute 61-year-old male with a past medical history of hypertension, hyperlipidemia, diabetes, chronic kidney disease, diastolic CHF, diffuse large B-cell lymphoma received chemotherapy 2 weeks ago; hypothyroidism,. Presented to the hospital with a chief complaint of shortness of breath. Noted to have acute hypoxic respiratory failure in the setting of COVID-19 pneumonia. Admitted for further management. Acute hypoxic respiratory failure: The setting of COVID-19 pneumonia. Patient on high-flow currently. Supportive care. Able to finish sentences. Will continue to monitor closely. Morphine p.r.n. COVID-19 pneumonia: Continue ceftriaxone azithromycin empirically. Decadron 6 mg IV daily. Will consult Infectious Disease for Barcitinib approval. Oropharyngeal mass/diffuse large B-cell lymphoma: Recently received chemotherapy. Speech and swallow eval. Aspiration precautions. Diabetes: Insulin sliding scale History of diastolic CHF: Monitor for signs of fluid overload. Patient received gentle IV fluids in the ER. Hypertension: Patient's blood pressure on the normal side. Will hold home antihypertensive for now. DVT prophylaxis: Lovenox Code status: Full code Quality Stroke Does the patient have a stroke diagnosis?: No VTE Prior VTE?: No VTE Risk Level:: Medical - moderate - high VTE Device Contraindication: N/A - Device Ordered VTE Drug Contraindication: Treatment Not Indicated
[2021-10-25 07:43] LABS: Glucose, Whole Blood 104 mg/dL (60-115)
--- NOTE | 2021-10-25 09:05 | PHA.MEDREC ---
Pharmacy Consult ? Medication Reconciliation Pharmacy has completed the medication reconciliation.Pt from SNF.
[2021-10-25] MEDS: 0.9 % Sodium Chloride Flush 3 ML SYRINGE IVFLUSH ×2 (09:28→22:46)
[2021-10-25] MEDS: dexAMETHasone sod phosphate 4 MG/ML VIAL 6 MG IVPUSH (09:28)
[2021-10-25] MEDS: Enoxaparin Sodium 40 MG/0.4 ML SYRINGE SUBCUT (09:28)
[2021-10-25 11:45] LABS: Basophils Percent Auto 0.1 % (0-2); Hematocrit 26.4 % (42.0-52.0); Hemoglobin 8.8 g/dl (14.0-18.0); Imm Gran Abs Auto 0.13 X10*3/uL (0.00-0.03); Imm Gran Pct Auto 1.2 % (0.0-0.4); Lymphocytes Absolute Auto 0.1 X10*3/uL (1.2-4.9); Lymphocytes Percent Auto 0.6 % (20-40); MANUAL DIFF FLAG SCAN; Mean Corpuscular HGB Conc 33.3 g/dl (31.0-36.0); Mean Corpuscular Hemoglobin 29.6 pg (27.0-33.0); Mean Corpuscular Volume 88.9 fL (80.0-98.0); Mean Platelet Volume 8.8 fL (9.4-12.4); Monocytes Absolute Auto 0.2 X10*3/uL (0.1-1.2); Monocytes Percent Auto 1.5 % (2-11); Neutrophils Absolute Auto 10.7 x10*3/uL (2.0-8.3); Neutrophils Percent Auto 96.6 % (45-73); Platelet Count 138 X10*3/uL (160-400); Red Blood Count 2.97 X10*6/uL (4.60-5.80); Red Cell Distribution Width 13.3 % (11.0-16.0); SCAN SMEAR FLAG 1; White Blood Count 11.1 X10*3/uL (4.8-10.8)
[2021-10-25 12:06] LABS: Glucose, Whole Blood 130 mg/dL (60-115)
[2021-10-25 12:10] LABS: SLIDE REVIEW VERIFIED
[2021-10-25 12:11] LABS: Anion Gap 10 (12-20); Blood Urea Nitrogen 26 mg/dL (9-16); Calcium 7.5 mg/dL (8.4-10.2); Carbon Dioxide 26 mmol/L (22-29); Chloride 108 mmol/L (96-108); Creatinine Clr Calc Pharmacy 75.3; Estimated Glomerular Filt Rate > 60; Glucose Random 132 mg/dL (60-115); Potassium 4.3 mmol/L (3.3-5.1); Sodium 140 mmol/L (135-145)
--- NOTE | 2021-10-25 12:22 | PC.NURSE ---
Pt A&Ox3, NSR on monitor, O2 sat 98% on 15L HFNC at this time. BG 130, urinal and commode at bedside, pt does desat with talking but otherwise maintains O2. Awaiting bed assignment, will continue to monitor.
--- NOTE | 2021-10-25 14:41 | MHC.CM.PN ---
spoke with pts brother pt from [facility] he will retun when dcd pt is a bed hold
--- NOTE | 2021-10-25 16:47 | MHC.SLORD ---
Speech Language Pathology Order Status: Attempted to see Pt in ED Overflow this pm. Pt was asleep, did not rouse to name, has high flow air mask, could not assess at this time. Will re-attempt BSE assessment tomorrow if is Pt more alert.
--- NOTE | 2021-10-25 16:49 | W.PM.IDCN ---
History of Present Illness Data of Consult Service Date: 10/25/21 Requesting physician: Mokoie Amaral Primary Care Provider: Unknown Physician HPI Reason for consult: COVID He has shortness of breath and cough for two weeks He has no phlegm production He is COVID positive Review of Systems Review of Systems: Yes all other systems are reviewed and are negative [facility] Past Medical History Medical History Chronic diastolic CHF (congestive heart failure) CKD (chronic kidney disease), stage II CKD (chronic kidney disease), stage III Complete heart block Diabetes Diffuse large B cell lymphoma HTN (hypertension) Hypothyroid Orthostatic hypotension Family History Family history: reviewed and not pertinent Surgical History Surgical History H/O right hemicolectomy History of appendectomy S/P placement of cardiac pacemaker Social History Social History Household Members: Other Household Members Other:: long term Housing: [facility] Do you presently have visiting nurse or other home services: Yes Alcohol intake: never Patient Tobacco Use Status: Never used Tobacco Advance Directives: Yes Advance Directives on File: Yes Advance Directives Date on File: 08/12/21 service: No Current occupational status: disabled Meds Allergies Allergy/AdvReac Type Severity Reaction Status Date / Time No Known Allergies Allergy Unverified 08/12/21 02:07 Active Medications: Current Medications Acetaminophen (Acetaminophen 325 Mg Tablet) 650 mg PO Q6H PRN PRN Reason: Pain, Mild (Pain Scale 1-3) Dexamethasone Sodium Phosphate (Dexamethasone Sod Phosphate 4 Mg/Ml Vial) 6 mg IVPUSH DAILY [facility] Last Admin: 10/25/21 09:28 Dose: 6 mg Documented by: Dextrose (Dextrose 50 % 25 Gm/50 Ml Vial) 25 gm IVPUSH Q15M PRN; Protocol PRN Reason: per Hypoglycemia Standing Ord. Enoxaparin Sodium (Enoxaparin Sodium 40 Mg/0.4 Ml Syringe) 40 mg SUBCUT Q24H [facility] Last Admin: 10/25/21 09:28 Dose: 40 mg Documented by: Glucose (Glucose Gel 15 Gm Gel..Gram.) 15 gm PO Q15M PRN; Protocol PRN Reason: per Hypoglycemia Standing Ord. Hydromorphone HCl (Hydromorphone Hcl 0.5 Mg/0.5 Ml Syringe) 0.5 mg IVPUSH Q4H PRN; Protocol PRN Reason: Breakthrough Pain Insulin Human Lispro (Insulin Lispro 100 Unit/Ml 3 Ml Vial) 0 unit SUBCUT QIDACHS [facility]; Protocol Last Admin: 10/25/21 12:24 Dose: Not Given Documented by: Melatonin (Melatonin 3 Mg Tablet) 6 mg PO BEDTIME PRN PRN Reason: Insomnia Morphine Sulfate (Morphine Sulfate 2 Mg/Ml Cartridge) 1 mg IVPUSH Q4H PRN; Protocol PRN Reason: pain/sob Pharmacy Consult (Consult Rx Perform Med Rec) 1 each MISCELLANE ONCE PRN PRN Reason: Consult order Senna (Sennosides 8.6 Mg Tablet) 17.2 mg PO BEDTIME PRN PRN Reason: Constipation Sodium Chloride (0.9 % Sodium Chloride Flush 3 Ml Syringe) [facility] Last Admin: 10/25/21 09:28 Dose: 3 ml Documented by: Home Medications Medication Instructions Recorded Confirmed Last Taken Type amlodipine 10 mg tablet (Norvasc) 10 mg PO DAILY 08/12/21 10/25/21 Unknown History aspirin 81 mg chewable tablet 81 mg PO DAILY 08/12/21 10/25/21 Unknown History brimonidine 0.1 % eye drops 1 drp OPHTHALMIC (EYE) BID 08/12/21 10/25/21 Unknown History carvedilol 25 mg tablet 25 mg PO BID 08/12/21 10/25/21 Unknown History guaifenesin 600 mg tablet, 600 mg PO Q12H 08/12/21 10/25/21 Unknown History extended release 12 hr insulin lispro 100 unit/mL See Protocol SUBCUT QIDACHS 08/12/21 10/25/21 Unknown History subcutaneous solution (Humalog U-100 Insulin) levothyroxine 75 mcg tablet 75 mcg PO DAILY@0630 08/12/21 10/25/21 Unknown History rosuvastatin 10 mg tablet 10 mg PO DAILY 08/12/21 10/25/21 Unknown History acetaminophen 325 mg tablet 650 mg PO Q4H PRN 10/25/21 10/25/21 Unknown History benzonatate 200 mg capsule 200 mg PO Q8H PRN 10/25/21 10/25/21 Unknown History bisacodyl 10 mg rectal suppository 10 mg [place] DAILY PRN 10/25/21 10/25/21 Unknown History clonidine HCl 0.1 mg tablet 0.1 mg PO BID 10/25/21 10/25/21 Unknown History dronabinol 2.5 mg capsule 2.5 mg PO BID 10/25/21 10/25/21 Unknown History guaifenesin 100 mg/5 mL oral 200 mg PO Q6H PRN 10/25/21 10/25/21 Unknown History liquid (Tussin) hydralazine 50 mg tablet 50 mg PO QID 10/25/21 10/25/21 Unknown History magnesium citrate (Citrate of 300 ml PO DAILY PRN 10/25/21 10/25/21 Unknown History Magnesia) magnesium hydroxide 400 mg/5 mL 30 ml PO DAILY PRN 10/25/21 10/25/21 Unknown History oral suspension (Milk of Magnesia) multivitamin with minerals 1 tab PO DAILY 10/25/21 10/25/21 Unknown History omeprazole 20 mg capsule,delayed 20 mg PO BID@0630,1630 10/25/21 10/25/21 Unknown History release ondansetron HCl 8 mg tablet 8 mg PO Q8H PRN 10/25/21 10/25/21 Unknown History prochlorperazine maleate 10 mg 10 mg PO Q6H PRN 10/25/21 10/25/21 Unknown History tablet thiamine HCl (vitamin B1) 100 mg 100 mg PO DAILY 10/25/21 10/25/21 Unknown History tablet Physical Exam Vital Signs: Vital Signs: Last Vital Signs Temp 98.1 F 10/25/21 14:42 Pulse 71 10/25/21 14:42 Resp 18 10/25/21 15:56 BP 124/65 10/25/21 14:42 Pulse Ox 98 10/25/21 14:42 Oxygen Flow Rate 7 10/25/21 01:11 BMI result Body Mass Index 20.3 Const: General: cooperative HENMT: Head: Yes normal to inspection Resp: Effort & Inspection: able to speak in complete sentences Cardio: Rate: regular rate Rhythm: regular rhythm GI: Palpation (GI): nontender Results Labs CBC & Chem 7: 10/25/21 11:36 10/25/21 11:36 Labs: Short CBC 10/25/21 10/25/21 Range/Units 01:55 11:36 WBC 9.8 11.1 H (4.8-10.8) X10*3/uL Hgb 8.0 L 8.8 L (14.0-18.0) g/dl Hct 23.1 L 26.4 L (42.0-52.0) % Plt Count 143 L 138 L (160-400) X10*3/uL BMP 10/25/21 10/25/21 01:55 11:36 Sodium 140 140 Potassium 3.9 D 4.3 Chloride 108 108 Carbon Dioxide 25 26 BUN 30 H 26 H Creatinine 1.00 0.87 Calcium 7.5 L D 7.5 L Liver Function 10/25/21 Range/Units 01:55 Total Bilirubin 0.5 (0.0-1.0) mg/dL AST 25 (5-37) U/L ALT 23 (0-40) U/L Alkaline Phosphatase 100 D (39-117) U/L Albumin 2.0 L (3.5-5.0) g/dL Assessment and Plan (1) Pneumonia due to COVID-19 virus: Status: Acute He has lymphoma and has received chemotherapy He has been ill for two weeks (2) Acute respiratory failure: Status: Acute Oxygen Dexamethasone No baricitinib due to active malignancy No remdesivir due to duration,not helpful
--- NOTE | 2021-10-25 18:18 | PC.NURSE ---
Report to Richard on Tele, attempted to place pt on NRB 15L for transport, pt desat into the low 80's, placed back on HFNC, awaitng respiratory to assist in transport.
--- NOTE | 2021-10-25 19:54 | PC.NURSE ---
Pt transported to floor via this RN and RT, attached to portable monitor. Placed on NRB and NC en route, reattached to high flow NC on arrival.
[2021-10-25 20:07] LABS: Glucose, Whole Blood 169 mg/dL (60-115)
[2021-10-25 20:07] LABS: Glucose, Whole Blood 157 mg/dL (60-115)
[2021-10-25] MEDS: Insulin Lispro 100 UNIT/ML 3 ML VIAL SUBCUT (20:37)
[2021-10-26] VITALS (11 sets, daily range): BP systolic 117–163; BP diastolic 54–72; PULSE 60–83; RESP 18–22; TEMP 36.4–37.2; O2SAT 92–99
[2021-10-26 07:25] LABS: Glucose, Whole Blood 149 mg/dL (60-115)
[2021-10-26] MEDS: dexAMETHasone sod phosphate 4 MG/ML VIAL 6 MG IVPUSH (08:03)
[2021-10-26] MEDS: Enoxaparin Sodium 40 MG/0.4 ML SYRINGE SUBCUT (08:03)
[2021-10-26] MEDS: 0.9 % Sodium Chloride Flush 3 ML SYRINGE IVFLUSH ×2 (08:08→16:53)
[2021-10-26 08:27] LABS: Hematocrit 23.6 % (42.0-52.0); Hemoglobin 7.9 g/dl (14.0-18.0); Mean Corpuscular HGB Conc 33.5 g/dl (31.0-36.0); Mean Corpuscular Hemoglobin 29.6 pg (27.0-33.0); Mean Corpuscular Volume 88.4 fL (80.0-98.0); Mean Platelet Volume 9.9 fL (9.4-12.4); Platelet Count 127 X10*3/uL (160-400); Red Blood Count 2.67 X10*6/uL (4.60-5.80); Red Cell Distribution Width 13.4 % (11.0-16.0); White Blood Count 11.3 X10*3/uL (4.8-10.8)
[2021-10-26 08:44] LABS: Anion Gap 14 (12-20); Blood Urea Nitrogen 29 mg/dL (9-16); C Reactive Protein 11.62 mg/dL (< or = 0.50); Calcium 7.5 mg/dL (8.4-10.2); Carbon Dioxide 23 mmol/L (22-29); Chloride 111 mmol/L (96-108); Creatinine Clr Calc Pharmacy 88.4; Estimated Glomerular Filt Rate > 60; Glucose Fasting 157 mg/dL (60-99); Lactate Dehydrogenase 483 U/L (118-273); Potassium 4.2 mmol/L (3.3-5.1); Sodium 144 mmol/L (135-145)
[2021-10-26 08:53] LABS: D Dimer High Sensitivity 853 NG/ML
--- NOTE | 2021-10-26 09:45 | P.PNIM_ITS ---
Subjective Subjective Date of Service: 10/26/21 Interval History: cc: sob intreval history: o2 requirements increaseing, sob Cardiovascular Cardiovascular: Reports no additional cardiovascular complaints Respiratory Respiratory: Reports no additional respiratory complaints Physical Exam Vital Signs: Vital Signs: Last Vital Signs Temp 98 F 10/26/21 07:15 Pulse 68 10/26/21 07:15 Resp 18 10/26/21 07:50 BP 137/62 10/26/21 07:15 Pulse Ox 98 10/26/21 07:15 Oxygen Flow Rate 7 10/25/21 01:11 BMI result Body Mass Index 24.6 General: AO X 3, ill appearing, dyspneic Resp: rhonchi bilateral, accessory muscles used CVS: S1,S2,RRR GI: soft, non tender, non distended Neuro: motor grossly intact, alert Psych: appropriate affect, appropriate insight Objective Data Active Medications Acetaminophen (Acetaminophen 325 Mg Tablet) 650 mg PO Q6H PRN PRN Reason: Pain, Mild (Pain Scale 1-3) Dexamethasone Sodium Phosphate (Dexamethasone Sod Phosphate 4 Mg/Ml Vial) 6 mg IVPUSH DAILY [facility] Last Admin: 10/26/21 08:03 Dose: 6 mg Documented by: VERO Dextrose (Dextrose 50 % 25 Gm/50 Ml Vial) 25 gm IVPUSH Q15M PRN; Protocol PRN Reason: per Hypoglycemia Standing Ord. Enoxaparin Sodium (Enoxaparin Sodium 40 Mg/0.4 Ml Syringe) 40 mg SUBCUT Q24H [facility] Last Admin: 10/26/21 08:03 Dose: 40 mg Documented by: VERO Glucose (Glucose Gel 15 Gm Gel..Gram.) 15 gm PO Q15M PRN; Protocol PRN Reason: per Hypoglycemia Standing Ord. Hydromorphone HCl (Hydromorphone Hcl 0.5 Mg/0.5 Ml Syringe) 0.5 mg IVPUSH Q4H PRN; Protocol PRN Reason: Breakthrough Pain Insulin Human Lispro (Insulin Lispro 100 Unit/Ml 3 Ml Vial) 0 unit SUBCUT QIDACHS [facility]; Protocol Last Admin: 10/26/21 07:48 Dose: Not Given Documented by: VERO Non-Admin Reason: No Insulin Coverage Melatonin (Melatonin 3 Mg Tablet) 6 mg PO BEDTIME PRN PRN Reason: Insomnia Morphine Sulfate (Morphine Sulfate 2 Mg/Ml Cartridge) 1 mg IVPUSH Q4H PRN; Protocol PRN Reason: pain/sob Pharmacy Consult (Consult Rx Perform Med Rec) 1 each MISCELLANE ONCE PRN PRN Reason: Consult order Senna (Sennosides 8.6 Mg Tablet) 17.2 mg PO BEDTIME PRN PRN Reason: Constipation Sodium Chloride (0.9 % Sodium Chloride Flush 3 Ml Syringe) 3 ml IVFLUSH QSHIFT [facility] Last Admin: 10/26/21 08:08 Dose: 3 ml Documented by: VERO Labs CBC & Chem 7: 10/26/21 08:01 10/26/21 08:01 Labs: Laboratory Results - last 24 hr 10/25/21 10/25/21 10/25/21 11:36 11:36 11:58 MCV 88.9 MCH 29.6 MCHC 33.3 RDW 13.3 Plt Count 138 L MPV 8.8 L Immature Gran % (Auto) 1.2 H Neut % (Auto) 96.6 H Lymph % (Auto) 0.6 L Moffat % (Auto) 1.5 L Eos % (Auto) 0.0 Baso % (Auto) 0.1 Lymph # (Auto) 0.1 L Moffat # (Auto) 0.2 Eos # (Auto) 0.0 Baso # (Auto) 0.0 Abs Immat Gran (auto) 0.13 H Absolute Neuts (auto) 10.7 H Absolute Nucleated RBC 0.000 Nucleated RBC % (auto) 0.0 Smear Tech's Comments VERIFIED D-Dimer High Sensitivty Anion Gap 10 L Estim Creat Clear Calc 75.3 Estimated GFR > 60 POC Glucose 130 H Random Glucose 132 H D Fasting Glucose Calcium 7.5 L Lactate Dehydrogenase C-Reactive Protein 10/25/21 10/25/21 10/26/21 17:24 19:59 07:20 MCV MCH MCHC RDW Plt Count MPV Immature Gran % (Auto) Neut % (Auto) Lymph % (Auto) Moffat % (Auto) Eos % (Auto) Baso % (Auto) Lymph # (Auto) Moffat # (Auto) Eos # (Auto) Baso # (Auto) Abs Immat Gran (auto) Absolute Neuts (auto) Absolute Nucleated RBC Nucleated RBC % (auto) Smear Tech's Comments D-Dimer High Sensitivty Anion Gap Estim Creat Clear Calc Estimated GFR POC Glucose 157 H 169 H 149 H Random Glucose Fasting Glucose Calcium Lactate Dehydrogenase C-Reactive Protein 10/26/21 10/26/21 10/26/21 08:01 08:01 08:01 MCV 88.4 MCH 29.6 MCHC 33.5 RDW 13.4 Plt Count 127 L MPV 9.9 Immature Gran % (Auto) Neut % (Auto) Lymph % (Auto) Moffat % (Auto) Eos % (Auto) Baso % (Auto) Lymph # (Auto) Moffat # (Auto) Eos # (Auto) Baso # (Auto) Abs Immat Gran (auto) Absolute Neuts (auto) Absolute Nucleated RBC 0.000 Nucleated RBC % (auto) 0.0 Smear Tech's Comments D-Dimer High Sensitivty 853 Anion Gap 14 Estim Creat Clear Calc 88.4 Estimated GFR > 60 POC Glucose Random Glucose Fasting Glucose 157 H Calcium 7.5 L Lactate Dehydrogenase 483 H C-Reactive Protein 11.62 H Microbiology Microbiology Results: Microbiology 10/25/21 01:55 Blood Culture - Preliminary Blood - Venous No growth after 24 hours. 10/25/21 01:55 Blood Culture - Preliminary Blood - Venous No growth after 24 hours. Assessment and Plan (1) Pneumonia due to COVID-19 virus: Status: Acute Assessment and Plan: 61M presented with sob Acute hypoxic respiratory failure secondary to COVID pneumonia. Continue Decadron day 3, patient not a candidate for remdesivir or baricitinib diffuse large B-cell lymphoma on chemo,follow-up oncology as outpatient diabetes insulin sliding scale hypertension BP mildly elevated, resume Coreg, amlodipine, clonidine, hydralazine monitor closely hypothyroid Synthroid DVT prophylaxis with Lovenox full code, discussed with patient Quality Stroke Does the patient have a stroke diagnosis?: No VTE Prior VTE?: No VTE Risk Level:: Medical - moderate - high VTE Device Contraindication: N/A - Device Ordered VTE Drug Contraindication: Treatment Not Indicated
[2021-10-26 11:15] LABS: Glucose, Whole Blood 255 mg/dL (60-115)
--- NOTE | 2021-10-26 12:01 | MHC.SL.SWA ---
Speech Pathologist Impression: Oral Phase Dysphagia Risk of Aspiration Due to: Dysphasia Diet Status: No Change Liquid Consistency and Strategies for Safe Swallow: Liquid Intake Recommendation: Thin Liquid Intake Strategies: Unrestricted Solid Food Consistency: Dietary Recommendations: Pureed (NDD1) Additional Modifications to Solid Foods: Monitor SAT levels during meals. Oral Medication Intake: Whole with Puree Compensatory Strategies and Precautions to be Taken for Safe Swallow: Sitting Upright (90 deg) Liquids from Cup Liquids from Straw Alternate Liquids/Solids Supervision While Eating and Drinking for Safe Swallow: Intermittent Supervision Foods to Avoid: Swallowing Recommended Treatments: Compens. Strategy Educat. Recommendation for Speech: Inpatient Speech Therapy Comment: Pt presents with Oral Phase Dysphagia, characterized by inefficient lingual mvt, extended period of mastication, Pt c/o difficulty on textures more advanced than Puree. Pt may have oral sensitivity due to poor dentition, chemotherapy. Recommend continue current diet of PUREE (NDD1), THIN liquids, w/ Pills in puree. FREELANCE MAKEUP ARTIST to follow 1-2 times for toleration of diet, consideration of advancement to provide more food varieties when Pt expresses and presents with readiness for advancement. Recommend periodic supervision w/monitor of O2 Sat during meals. Frequency/Duration: 1-2 X while inpt. M-F Date Range for Service Req: Timeline to reassess: [place] Management Professor Clinican/Clinical Fellow: No Supervisory Statement: I have reviewed and agree with the student/clinical fellow's documentation: N/A Speech Language Pathologist: Olya Gleason M.A., CCC-FREELANCE MAKEUP ARTIST
[2021-10-26] MEDS: Insulin Lispro 100 UNIT/ML 3 ML VIAL SUBCUT ×3 (12:10→22:08)
[2021-10-26 16:42] LABS: Glucose, Whole Blood 263 mg/dL (60-115)
[2021-10-26] MEDS: Omeprazole 20 MG CAPSULE.DR PO (16:53)
[2021-10-26 20:37] LABS: Glucose, Whole Blood 269 mg/dL (60-115)
[2021-10-26] MEDS: cloNIDine HCL 0.1 MG TABLET PO (22:09)
[2021-10-26] MEDS: carvediloL 25 MG TABLET PO (22:09)
[2021-10-27] VITALS (15 sets, daily range): BP systolic 115–163; BP diastolic 60–76; PULSE 60–70; RESP 16–24; TEMP 36.5–37.1; O2SAT 89–98
[2021-10-27] MEDS: 0.9 % Sodium Chloride Flush 3 ML SYRINGE IVFLUSH ×4 (01:05→22:36)
[2021-10-27] MEDS: Omeprazole 20 MG CAPSULE.DR PO ×2 (05:01→16:40)
[2021-10-27] MEDS: Levothyroxine Sodium 75 MCG TABLET PO (05:01)
[2021-10-27 07:30] LABS: Glucose, Whole Blood 169 mg/dL (60-115)
[2021-10-27 08:18] LABS: Hematocrit 24.2 % (42.0-52.0); Hemoglobin 8.3 g/dl (14.0-18.0); Mean Corpuscular HGB Conc 34.3 g/dl (31.0-36.0); Mean Corpuscular Hemoglobin 30.3 pg (27.0-33.0); Mean Corpuscular Volume 88.3 fL (80.0-98.0); Mean Platelet Volume 9.2 fL (9.4-12.4); Platelet Count 133 X10*3/uL (160-400); Red Blood Count 2.74 X10*6/uL (4.60-5.80); Red Cell Distribution Width 13.4 % (11.0-16.0); White Blood Count 10.6 X10*3/uL (4.8-10.8)
[2021-10-27] MEDS: cloNIDine HCL 0.1 MG TABLET PO ×2 (08:23→22:36)
[2021-10-27] MEDS: Insulin Lispro 100 UNIT/ML 3 ML VIAL SUBCUT ×3 (08:23→16:41)
[2021-10-27] MEDS: Atorvastatin Calcium 40 MG TABLET PO (08:24)
[2021-10-27] MEDS: amLODIPine Besylate 10 MG TABLET PO (08:24)
[2021-10-27] MEDS: carvediloL 25 MG TABLET PO ×2 (08:24→22:35)
[2021-10-27] MEDS: Aspirin 81 MG TAB.CHEW PO (08:24)
[2021-10-27] MEDS: Thiamine HCL 100 MG TABLET PO (08:25)
[2021-10-27] MEDS: Enoxaparin Sodium 40 MG/0.4 ML SYRINGE SUBCUT (08:25)
[2021-10-27] MEDS: dexAMETHasone sod phosphate 4 MG/ML VIAL 6 MG IVPUSH (08:25)
[2021-10-27 08:26] LABS: D Dimer High Sensitivity 749 NG/ML
[2021-10-27 08:33] LABS: Anion Gap 12 (12-20); Blood Urea Nitrogen 27 mg/dL (9-16); C Reactive Protein 6.54 mg/dL (< or = 0.50); Calcium 7.7 mg/dL (8.4-10.2); Carbon Dioxide 26 mmol/L (22-29); Chloride 111 mmol/L (96-108); Creatinine Clr Calc Pharmacy 91.8; Estimated Glomerular Filt Rate > 60; Glucose Fasting 175 mg/dL (60-99); Lactate Dehydrogenase 491 U/L (118-273); Potassium 4.3 mmol/L (3.3-5.1); Sodium 145 mmol/L (135-145)
[2021-10-27 11:15] LABS: Glucose, Whole Blood 215 mg/dL (60-115)
[2021-10-27] MEDS: polyethylene glycoL 3350 17 GM POWD.PACK PO (11:23)
[2021-10-27] MEDS: Milk of Magnesia 30 ML ORAL.SUSP 15 ML PO (11:24)
[2021-10-27] MEDS: Docusate Sodium 100 MG CAPSULE PO ×2 (11:24→22:36)
--- NOTE | 2021-10-27 11:42 | MHC.CM.PN ---
Per ROUNDS discussion, Patient is not yet medically cleared for dc (IV Decadron, High Flow OI2); Returning to [facility] is the goal for dc and CM will continue to follow.
--- NOTE | 2021-10-27 12:30 | P.PNIM_ITS ---
Subjective Subjective Date of Service: 10/27/21 Interval History: The patient was seen and evaluated this morning Laying in bed, feels tired and exhausted reporting shortness of breath and generalized weakness No reported other overnight events. Systemic review: have generalizedweakness No chest pain, palpitation reporting dyspnea, coughing No abdominal pain, nausea or vomiting No urinary symptoms No any rash or wounds Physical Exam Vital Signs: Vital Signs: Last Vital Signs Temp 97.9 F 10/27/21 11:40 Pulse 60 10/27/21 11:40 Resp 20 10/27/21 11:40 BP 163/76 H 10/27/21 11:40 Pulse Ox 90 L 10/27/21 11:40 Oxygen Flow Rate 7 10/25/21 01:11 BMI result Body Mass Index 24.6 Const: Other: Constitutional : Alert, oriented, in moderate respiratory distress Neck : Normal inspection, Supple Cardiovascular : RRR, S1 S2, no lower extremity edema Respiratory : chest wall moving bilaterally, mildly tachypneic, in moderate respiratory distress, on high-flow oxygen Gastrointestinal: soft, lax, Normal bowel sounds, Non tender Skin : Warm, Dry Neurological : Alert & oriented x3, No focal deficit Objective Data Active Medications Acetaminophen (Acetaminophen 325 Mg Tablet) 650 mg PO Q6H PRN PRN Reason: Pain, Mild (Pain Scale 1-3) Amlodipine Besylate (Amlodipine Besylate 10 Mg Tablet) 10 mg PO DAILY [facility]; Protocol Last Admin: 10/27/21 08:24 Dose: 10 mg Documented by: JOEL Aspirin (Aspirin 81 Mg Tab.Chew) 81 mg PO DAILY [facility] Last Admin: 10/27/21 08:24 Dose: 81 mg Documented by: JOEL Atorvastatin Calcium (Atorvastatin Calcium 40 Mg Tablet) 40 mg PO DAILY [facility] Last Admin: 10/27/21 08:24 Dose: 40 mg Documented by: JOEL Carvedilol (Carvedilol 25 Mg Tablet) 25 mg PO BID [facility]; Protocol Last Admin: 10/27/21 08:24 Dose: 25 mg Documented by: JOEL Clonidine HCl (Clonidine Hcl 0.1 Mg Tablet) 0.1 mg PO BID [facility]; Protocol Last Admin: 10/27/21 08:23 Dose: 0.1 mg Documented by: JOEL Dexamethasone Sodium Phosphate (Dexamethasone Sod Phosphate 4 Mg/Ml Vial) 6 mg IVPUSH DAILY [facility] Last Admin: 10/27/21 08:25 Dose: 6 mg Documented by: JOEL Dextrose (Dextrose 50 % 25 Gm/50 Ml Vial) 25 gm IVPUSH Q15M PRN; Protocol PRN Reason: per Hypoglycemia Standing Ord. Docusate Sodium (Docusate Sodium 100 Mg Capsule) 100 mg PO BID [facility] Last Admin: 10/27/21 11:24 Dose: 100 mg Documented by: JOEL Enoxaparin Sodium (Enoxaparin Sodium 40 Mg/0.4 Ml Syringe) 40 mg SUBCUT Q24H [facility] Last Admin: 10/27/21 08:25 Dose: 40 mg Documented by: JOLE Glucose (Glucose Gel 15 Gm Gel..Gram.) 15 gm PO Q15M PRN; Protocol PRN Reason: per Hypoglycemia Standing Ord. Hydromorphone HCl (Hydromorphone Hcl 0.5 Mg/0.5 Ml Syringe) 0.5 mg IVPUSH Q4H PRN; Protocol PRN Reason: Breakthrough Pain Insulin Human Lispro (Insulin Lispro 100 Unit/Ml 3 Ml Vial) 0 unit SUBCUT Q IDACHS [facility]; Protocol Last Admin: 10/27/21 11:23 Dose: 4 unit Documented by: JOEL Levothyroxine Sodium (Levothyroxine Sodium 75 Mcg Tablet) 75 mcg PO DAILY@0630 [facility] Last Admin: 10/27/21 05:01 Dose: 75 mcg Documented by: BRUNILDA Melatonin (Melatonin 3 Mg Tablet) 6 mg PO BEDTIME PRN PRN Reason: Insomnia Morphine Sulfate (Morphine Sulfate 2 Mg/Ml Cartridge) 1 mg IVPUSH Q4H PRN; Protocol PRN Reason: pain/sob Non-Formulary Medication (Brimonidine) 1 drop EYE-BOTH BID [facility] Omeprazole (Omeprazole 20 Mg Capsule.) 20 mg PO BID@0630,1630 [facility] Last Admin: 10/27/21 05:01 Dose: 20 mg Documented by: BRUNILDA Pharmacy Consult (Consult Rx Perform Med Rec) 1 each MISCELLANE ONCE PRN PRN Reason: Consult order Senna (Sennosides 8.6 Mg Tablet) 17.2 mg PO BEDTIME PRN PRN Reason: Constipation Sodium Chloride (0.9 % Sodium Chloride Flush 3 Ml Syringe) 3 ml IVFLUSH QSHIFT [facility] Last Admin: 10/27/21 08:23 Dose: 3 ml Documented by: JOEL Thiamine HCl (Thiamine Hcl 100 Mg Tablet) 100 mg PO DAILY [facility] Last Admin: 10/27/21 08:25 Dose: 100 mg Documented by: JOEL Labs CBC & Chem 7: 10/27/21 07:50 10/27/21 07:50 Labs: Laboratory Results - last 24 hr 10/26/21 10/26/21 10/27/21 16:31 20:17 07:21 MCV MCH MCHC RDW Plt Count MPV Absolute Nucleated RBC Nucleated RBC % (auto) D-Dimer High Sensitivty Anion Gap Estim Creat Clear Calc Estimated GFR POC Glucose 263 H 269 H 169 H Fasting Glucose Calcium Lactate Dehydrogenase C-Reactive Protein 10/27/21 10/27/21 10/27/21 07:50 07:50 07:50 MCV 88.3 MCH 30.3 MCHC 34.3 RDW 13.4 Plt Count 133 L MPV 9.2 L Absolute Nucleated RBC 0.000 Nucleated RBC % (auto) 0.0 D-Dimer High Sensitivty 749 Anion Gap 12 Estim Creat Clear Calc 91.8 Estimated GFR > 60 POC Glucose Fasting Glucose 175 H Calcium 7.7 L Lactate Dehydrogenase 491 H C-Reactive Protein 6.54 H 10/27/21 11:02 MCV MCH MCHC RDW Plt Count MPV Absolute Nucleated RBC Nucleated RBC % (auto) D-Dimer High Sensitivty Anion Gap Estim Creat Clear Calc Estimated GFR POC Glucose 215 H Fasting Glucose Calcium Lactate Dehydrogenase C-Reactive Protein Microbiology Microbiology Results: Microbiology 10/25/21 01:55 Blood Culture - Preliminary Blood - Venous No growth after 48 hours. 10/25/21 01:55 Blood Culture - Preliminary Blood - Venous No growth after 48 hours. Assessment and Plan (1) Pneumonia due to COVID-19 virus: Status: Acute (2) Acute respiratory failure: Status: Acute Assessment and Plan: 61M presented with sob Acute hypoxic respiratory failure secondary to COVID pneumonia. Continue Decadron day 4, id input appreciated,patient not a candidate for remdesivir or baricitinib giving chemo diffuse large B-cell lymphoma on chemo,follow-up oncology as outpatient diabetes insulin sliding scale hypertension BP mildly elevated, resume Coreg, amlodipine, clonidine, hydralazine monitor closely hypothyroid Synthroid DVT prophylaxis with Lovenox full code, discussed with patient Quality Stroke Does the patient have a stroke diagnosis?: No VTE Prior VTE?: No VTE Risk Level:: Medical - moderate - high VTE Device Contraindication: N/A - Device Ordered VTE Drug Contraindication: Treatment Not Indicated
[2021-10-27] MEDS: guaiFENesin LA 600 MG TAB.ER.12H PO ×2 (13:27→22:36)
--- NOTE | 2021-10-27 16:24 | MHC.CLN ---
NUTRITION NUTRITION CONSULT FOR SKIN INTEGRITY. STAGE I TO COCCYX. RECENT POOR PO NOTED. ADDING GLUCERNA BID (474 KCAL, 20 G PROTEIN) FOR ADDITIONAL NUTRITION AND TO PROMOTE SKIN INTEGRITY.
[2021-10-27 16:26] LABS: Glucose, Whole Blood 275 mg/dL (60-115)
--- NOTE | 2021-10-27 17:17 | MHC.SLORD ---
Speech Language Pathology Order Status: Patient is on PUREED (NDD1) solids and THIN liquids, pills in PUREE. SPRINKLER WORKER to re-evaluate tomorrow morning to assess tolerance of current consistencies and potentially for upgrade.
[2021-10-27 20:50] LABS: Glucose, Whole Blood 182 mg/dL (60-115)
[2021-10-28] VITALS (15 sets, daily range): BP systolic 114–144; BP diastolic 60–70; PULSE 60–89; RESP 18–30; TEMP 35.6–37.5; O2SAT 87–96
--- NOTE | 2021-10-28 04:32 | PC.NURSE ---
Pt seen on bed alert and oriented, still very weak,LS still very dim with scattered fine crackles and exp rhonchi, tolerating O2 at 55L/min via HFNC with 95% FiO2, gets SOB and desating with minimal positioning, needs attended .
[2021-10-28] MEDS: Levothyroxine Sodium 75 MCG TABLET PO (05:42)
[2021-10-28] MEDS: Omeprazole 20 MG CAPSULE.DR PO ×2 (05:42→15:58)
[2021-10-28 07:21] LABS: Glucose, Whole Blood 178 mg/dL (60-115)
[2021-10-28] MEDS: Insulin Lispro 100 UNIT/ML 3 ML VIAL SUBCUT ×3 (08:03→20:43)
[2021-10-28] MEDS: Enoxaparin Sodium 40 MG/0.4 ML SYRINGE SUBCUT (08:04)
[2021-10-28] MEDS: Aspirin 81 MG TAB.CHEW PO (08:04)
[2021-10-28] MEDS: dexAMETHasone sod phosphate 4 MG/ML VIAL 6 MG IVPUSH (08:04)
[2021-10-28] MEDS: cloNIDine HCL 0.1 MG TABLET PO ×2 (08:04→20:44)
[2021-10-28] MEDS: guaiFENesin LA 600 MG TAB.ER.12H PO (08:04)
[2021-10-28] MEDS: Thiamine HCL 100 MG TABLET PO (08:04)
[2021-10-28] MEDS: Docusate Sodium 100 MG CAPSULE PO ×2 (08:04→20:44)
[2021-10-28] MEDS: Atorvastatin Calcium 40 MG TABLET PO (08:04)
[2021-10-28] MEDS: amLODIPine Besylate 10 MG TABLET PO (08:05)
[2021-10-28] MEDS: 0.9 % Sodium Chloride Flush 3 ML SYRINGE IVFLUSH ×3 (08:05→20:44)
[2021-10-28] MEDS: carvediloL 25 MG TABLET PO ×2 (08:05→20:44)
[2021-10-28 08:49] LABS: Hemoglobin 8.6 g/dl (14.0-18.0); Mean Corpuscular HGB Conc 34.4 g/dl (31.0-36.0); Mean Corpuscular Hemoglobin 29.5 pg (27.0-33.0); Mean Corpuscular Volume 85.6 fL (80.0-98.0); Mean Platelet Volume 10.1 fL (9.4-12.4); Platelet Count 125 X10*3/uL (160-400); Red Blood Count 2.92 X10*6/uL (4.60-5.80); Red Cell Distribution Width 13.3 % (11.0-16.0); White Blood Count 11.2 X10*3/uL (4.8-10.8)
[2021-10-28] MEDS: Albuterol/Iprat 2.5/0.5MG 3 ML AMPUL.NEB INHALE ×4 (09:15→19:42)
[2021-10-28 09:36] LABS: Anion Gap 12 (12-20); Blood Urea Nitrogen 25 mg/dL (9-16); Calcium 7.3 mg/dL (8.4-10.2); Carbon Dioxide 20 mmol/L (22-29); Chloride 112 mmol/L (96-108); Creatinine Clr Calc Pharmacy 89.5; Estimated Glomerular Filt Rate > 60; Glucose Random 209 mg/dL (60-115); Potassium 5.1 mmol/L (3.3-5.1); Sodium 139 mmol/L (135-145)
[2021-10-28 11:04] LABS: Glucose, Whole Blood 144 mg/dL (60-115)
[2021-10-28 11:37] LABS: C Reactive Protein 4.72 mg/dL (< or = 0.50); Lactate Dehydrogenase 648 U/L (118-273)
--- NOTE | 2021-10-28 12:04 | W.PM.CCCN ---
History of Present Illness Data of Consult Service Date: 10/28/21 Requesting physician: Juanjo Maciel Primary Care Provider: Unknown Physician HPI Reason for consult: COVID-19 hypoxia 61-year-old gentleman with underlying history of diffuse large B-cell lymphoma recently on chemotherapy, chronic diastolic congestive heart failure, CKD stage 3, diabetes mellitus, complete heart block status post permanent pacemaker placement, hypothyroidism admitted on 10/25/2021 with dyspnea secondary to COVID-19, symptomatic for 2 weeks prior. Patient has been started on dexamethasone. He is not a candidate for remdesivir on baricitinib. Patient has been evaluated by infectious disease service. Now he requires high-flow nasal cannula and non-rebreather to maintain his O2 saturation above 90%. On my exam his O2 saturation is 93-94%. He is conversant, though anxious. Review of Systems Constitutional: Constitutional: Denies daytime sleepiness, Denies excessive sweating, Denies fatigue, Denies fever(s), Denies lethargy, Denies malaise, Denies night sweats, Denies snoring and Denies weight loss Eyes: Eyes: Denies blurry vision and Denies itchy eyes ENT: Denies nasal congestion, Denies post nasal drip, Denies sinus pain, Denies sinus pressure and Denies other ( Thrush) Cardiovascular: Cardiovascular: Denies chest pain, Denies pedal edema, Reports dyspnea, Denies orthopnea and Denies paroxysmal nocturnal dyspnea Respiratory: Respiratory: Denies cough, Denies hemoptysis, Denies excessive phlegm production, Reports dyspnea, Denies snoring and Denies wheezing Gastrointestinal: Gastrointestinal: Denies abdominal pain and Denies heartburn Musculoskeletal: Musculoskeletal: Denies myalgias, Denies arthralgias and Denies joint swelling Integumentary/Breasts: Skin/Breast: Denies rash Neurologic: Denies memory loss and Denies seizure-like activity Psychiatric: Psychiatric: Denies abnormal sleep pattern, Denies anxiety and Denies memory loss Endocrine: Endocrine: Denies excessive sweating, Denies fatigue and Denies heat intolerance Hematologic/Lymphatic: Hematologic/Lymphatic: Denies easy bruising Allergic/Immunologic: Allergic/Immunologic: Denies itchy eyes, Denies seasonal rhinorrhea and Denies wheezing PMFSH Past Medical History Medical History Chronic diastolic CHF (congestive heart failure) CKD (chronic kidney disease), stage II CKD (chronic kidney disease), stage III Complete heart block Diabetes Diffuse large B cell lymphoma HTN (hypertension) Hypothyroid Orthostatic hypotension Family History Family history: reviewed and not pertinent Surgical History Surgical History H/O right hemicolectomy History of appendectomy S/P placement of cardiac pacemaker Social History Social History Household Members: Other Household Members Other:: long-term Housing: Shelter Do you presently have visiting nurse or other home services: Yes Alcohol intake: never Patient Tobacco Use Status: Never used Tobacco Advance Directives Date on File: 08/12/21 service: No Current occupational status: [employer] Allergies Allergy/AdvReac Type Severity Reaction Status Date / Time No Known Allergies Allergy Unverified 08/12/21 02:07 Active Medications: Current Medications Acetaminophen (Acetaminophen 325 Mg Tablet) 650 mg PO Q6H PRN PRN Reason: Pain, Mild (Pain Scale 1-3) Albuterol/Ipratropium (Albuterol/Iprat 2.5/0.5mg 3 Ml Ampul.Neb) 3 ml INHALE RQ4H WHILE AWAKE [facility] Last Admin: 10/28/21 15:19 Dose: 3 ml Documented by: Amlodipine Besylate (Amlodipine Besylate 10 Mg Tablet) 10 mg PO DAILY [facility]; Protocol Last Admin: 10/28/21 08:05 Dose: 10 mg Documented by: Aspirin (Aspirin 81 Mg Tab.Chew) 81 mg PO DAILY [facility] Last Admin: 10/28/21 08:04 Dose: 81 mg Documented by: Atorvastatin Calcium (Atorvastatin Calcium 40 Mg Tablet) 40 mg PO DAILY [facility] Last Admin: 10/28/21 08:04 Dose: 40 mg Documented by: Baricitinib (Baricitinib 2 Mg Tablet) 4 mg PO Q24H [facility] Stop: 11/10/21 13:01 Last Admin: 10/28/21 12:49 Dose: 4 mg Documented by: Carvedilol (Carvedilol 25 Mg Tablet) 25 mg PO BID [facility]; Protocol Last Admin: 10/28/21 08:05 Dose: 25 mg Documented by: Clonidine HCl (Clonidine Hcl 0.1 Mg Tablet) 0.1 mg PO BID [facility]; Protocol Last Admin: 10/28/21 08:04 Dose: 0.1 mg Documented by: Dexamethasone Sodium Phosphate (Dexamethasone Sod Phosphate 4 Mg/Ml Vial) 6 mg IVPUSH DAILY [facility] Last Admin: 10/28/21 08:04 Dose: 6 mg Documented by: Dextrose (Dextrose 50 % 25 Gm/50 Ml Vial) 25 gm IVPUSH Q15M PRN; Protocol PRN Reason: per Hypoglycemia Standing Ord. Docusate Sodium (Docusate Sodium 100 Mg Capsule) 100 mg PO BID [facility] Last Admin: 10/28/21 08:04 Dose: 100 mg Documented by: Enoxaparin Sodium (Enoxaparin Sodium 40 Mg/0.4 Ml Syringe) 40 mg SUBCUT Q24H [facility] Last Admin: 10/28/21 08:04 Dose: 40 mg Documented by: Glucose (Glucose Gel 15 Gm Gel..Gram.) 15 gm PO Q15M PRN; Protocol PRN Reason: per Hypoglycemia Standing Ord. Guaifenesin (Guaifenesin La 600 Mg Tab.Er.12h) 600 mg PO BID [facility] Last Admin: 10/28/21 08:04 Dose: 600 mg Documented by: Hydromorphone HCl (Hydromorphone Hcl 0.5 Mg/0.5 Ml Syringe) 0.5 mg IVPUSH Q4H PRN; Protocol PRN Reason: Breakthrough Pain Insulin Human Lispro (Insulin Lispro 100 Unit/Ml 3 Ml Vial) 0 unit SUBCUT QIDACHS [facility]; Protocol Last Admin: 10/28/21 11:09 Dose: Not Given Documented by: Levothyroxine Sodium (Levothyroxine Sodium 75 Mcg Tablet) 75 mcg PO DAILY@0630 [facility] Last Admin: 10/28/21 05:42 Dose: 75 mcg Documented by: Melatonin (Melatonin 3 Mg Tablet) 6 mg PO BEDTIME PRN PRN Reason: Insomnia Morphine Sulfate (Morphine Sulfate 2 Mg/Ml Cartridge) 1 mg IVPUSH Q4H PRN; Protocol PRN Reason: pain/sob Non-Formulary Medication (Brimonidine) 1 drop EYE-BOTH BID [facility] Omeprazole (Omeprazole 20 Mg Sandra.) 20 mg PO BID@0630,1630 [facility] Last Admin: 10/28/21 15:58 Dose: 20 mg Documented by: Pharmacy Consult (Consult Rx Perform Med Rec) 1 each MISCELLANE ONCE PRN PRN Reason: Consult order Senna (Sennosides 8.6 Mg Tablet) 17.2 mg PO BEDTIME PRN PRN Reason: Constipation Sodium Chloride (0.9 % Sodium Chloride Flush 3 Ml Syringe) 3 ml IVFLUSH QSHIFT [facility] Last Admin: 10/28/21 15:58 Dose: 3 ml Documented by: Thiamine HCl (Thiamine Hcl 100 Mg Tablet) 100 mg PO DAILY [facility] Last Admin: 10/28/21 08:04 Dose: 100 mg Documented by: Home Medications Medication Instructions Recorded Confirmed Last Taken Type amlodipine 10 mg tablet (Norvasc) 10 mg PO DAILY 08/12/21 10/25/21 Unknown History aspirin 81 mg chewable tablet 81 mg PO DAILY 08/12/21 10/25/21 Unknown History brimonidine 0.1 % eye drops 1 drp OPHTHALMIC (EYE) BID 08/12/21 10/25/21 Unknown History carvedilol 25 mg tablet 25 mg PO BID 08/12/21 10/25/21 Unknown History guaifenesin 600 mg tablet, 600 mg PO Q12H 08/12/21 10/25/21 Unknown History extended release 12 hr insulin lispro 100 unit/mL See Protocol SUBCUT QIDACHS 08/12/21 10/25/21 Unknown History subcutaneous solution (Humalog U-100 Insulin) levothyroxine 75 mcg tablet 75 mcg PO DAILY@0630 08/12/21 10/25/21 Unknown History rosuvastatin 10 mg tablet 10 mg PO DAILY 08/12/21 10/25/21 Unknown History acetaminophen 325 mg tablet 650 mg PO Q4H PRN 10/25/21 10/25/21 Unknown History benzonatate 200 mg capsule 200 mg PO Q8H PRN 10/25/21 10/25/21 Unknown History bisacodyl 10 mg rectal suppository 10 mg NV DAILY PRN 10/25/21 10/25/21 Unknown History clonidine HCl 0.1 mg tablet 0.1 mg PO BID 10/25/21 10/25/21 Unknown History dronabinol 2.5 mg capsule 2.5 mg PO BID 10/25/21 10/25/21 Unknown History guaifenesin 100 mg/5 mL oral 200 mg PO Q6H PRN 10/25/21 10/25/21 Unknown History liquid (Tussin) hydralazine 50 mg tablet 50 mg PO QID 10/25/21 10/25/21 Unknown History magnesium citrate (Citrate of 300 ml PO DAILY PRN 10/25/21 10/25/21 Unknown History Magnesia) magnesium hydroxide 400 mg/5 mL 30 ml PO DAILY PRN 10/25/21 10/25/21 Unknown History oral suspension (Milk of Magnesia) multivitamin with minerals 1 tab PO DAILY 10/25/21 10/25/21 Unknown History omeprazole 20 mg capsule,delayed 20 mg PO BID@0630,1630 10/25/21 10/25/21 Unknown History release ondansetron HCl 8 mg tablet 8 mg PO Q8H PRN 10/25/21 10/25/21 Unknown History prochlorperazine maleate 10 mg 10 mg PO Q6H PRN 10/25/21 10/25/21 Unknown History tablet thiamine HCl (vitamin B1) 100 mg 100 mg PO DAILY 10/25/21 10/25/21 Unknown History tablet Physical Exam Vital Signs: Vital Signs: Last Vital Signs Temp 98.5 F 10/28/21 11:15 Pulse 62 10/28/21 15:15 Resp 22 H 10/28/21 15:15 BP 128/65 10/28/21 11:15 Pulse Ox 89 L 10/28/21 11:15 Oxygen Flow Rate 7 10/25/21 01:11 BMI result Body Mass Index 24.6 Const: General: no acute distress, alert and awake Eyes: Sclerae: sclerae normal EOM: EOMs intact bilaterally Neck: Neck: Yes no lymphadenopathy, Yes trachea midline and Yes supple Resp: Effort & Inspection: normal respiratory effort and no respiratory distress Auscultation: crackles (Diffuse bilateral) Cardio: Rate: regular rate Rhythm: regular rhythm Heart sounds: no gallops, no murmurs and no rubs GI: Palpation (GI): Soft to palpation and Other GI palpation findings present ( Nontender) Auscultation: normal bowel sounds Extrem: General: No clubbing, No cyanosis and Yes pedal edema (Trace bilateral) Results Labs CBC & Chem 7: 10/28/21 08:43 10/28/21 08:43 Labs: Short CBC 10/28/21 Range/Units 08:43 WBC 11.2 H (4.8-10.8) X10*3/uL Hgb 8.6 L (14.0-18.0) g/dl Hct 25.0 L (42.0-52.0) % Plt Count 125 L (160-400) X10*3/uL BMP 10/28/21 08:43 Sodium 139 Potassium 5.1 Chloride 112 H Carbon Dioxide 20 L BUN 25 H Creatinine 0.82 Calcium 7.3 L Microbiology Microbiology Results: Microbiology 10/25/21 01:55 Blood - Venous Blood Culture - Preliminary No growth after 48 hours. 10/25/21 01:55 Blood - Venous Blood Culture - Preliminary No growth after 48 hours. Assessment and Plan (1) Acute respiratory distress syndrome (ARDS) due to COVID-19 virus: Status: Acute (2) Acute respiratory failure with hypoxia: Status: Acute Impression: 61-year-old gentleman admitted with COVID-19 ARDS now requiring high-flow nasal cannula and non-rebreather to maintain normoxemia. Recommendations: Agree with dexamethasone. If infectious Disease agrees, would consider requesting tocilizumab (if available). Continue supplemental oxygen maintain O2 set at 88% and above. At this time does not require intensive care level of monitoring. Please notify for re-evaluation, if patient's condition changes.
--- NOTE | 2021-10-28 12:32 | P.PNIM_ITS ---
Subjective Subjective Date of Service: 10/28/21 Interval History: The patient was seen and evaluated this morning Laying in bed, feels Worse than before, decreased energy levels Maxed on oxygen supplement of non-rebreather and high-flow Reporting shortness of breath and generalized weakness No reported other overnight events. Systemic review: have generalizedweakness No chest pain, palpitation reporting dyspnea, coughing No abdominal pain, nausea or vomiting No urinary symptoms No any rash or wounds Physical Exam Vital Signs: Vital Signs: Last Vital Signs Temp 98.5 F 10/28/21 11:15 Pulse 69 10/28/21 11:30 Resp 24 H 10/28/21 11:30 BP 128/65 10/28/21 11:15 Pulse Ox 89 L 10/28/21 11:15 Oxygen Flow Rate 7 10/25/21 01:11 BMI result Body Mass Index 24.6 Const: Other: Constitutional : Alert, oriented, in moderate respiratory distress Neck : Normal inspection, Supple Cardiovascular : RRR, S1 S2, no lower extremity edema Respiratory : chest wall moving bilaterally, tachypneic, in moderate respiratory distress, on high-flow oxygen and non-rebreather Gastrointestinal: soft, lax, Normal bowel sounds, Non tender Skin : Warm, Dry Neurological : Alert & oriented x3, No focal deficit Objective Data Active Medications Acetaminophen (Acetaminophen 325 Mg Tablet) 650 mg PO Q6H PRN PRN Reason: Pain, Mild (Pain Scale 1-3) Albuterol/Ipratropium (Albuterol/Iprat 2.5/0.5mg 3 Ml Ampul.Neb) 3 ml INHALE RQ4H WHILE AWAKE [facility] Last Admin: 10/28/21 11:30 Dose: 3 ml Documented by: DARVIN Amlodipine Besylate (Amlodipine Besylate 10 Mg Tablet) 10 mg PO DAILY [facility]; Protocol Last Admin: 10/28/21 08:05 Dose: 10 mg Documented by: HENRY Aspirin (Aspirin 81 Mg Tab.Chew) 81 mg PO DAILY [facility] Last Admin: 10/28/21 08:04 Dose: 81 mg Documented by: HENRY Atorvastatin Calcium (Atorvastatin Calcium 40 Mg Tablet) 40 mg PO DAILY [facility] Last Admin: 10/28/21 08:04 Dose: 40 mg Documented by: HENRY Carvedilol (Carvedilol 25 Mg Tablet) 25 mg PO BID [facility]; Protocol Last Admin: 10/28/21 08:05 Dose: 25 mg Documented by: HENRY Clonidine HCl (Clonidine Hcl 0.1 Mg Tablet) 0.1 mg PO BID [facility]; Protocol Last Admin: 10/28/21 08:04 Dose: 0.1 mg Documented by: HENRY Dexamethasone Sodium Phosphate (Dexamethasone Sod Phosphate 4 Mg/Ml Vial) 6 mg IVPUSH DAILY [facility] Last Admin: 10/28/21 08:04 Dose: 6 mg Documented by: HENRY Dextrose (Dextrose 50 % 25 Gm/50 Ml Vial) 25 gm IVPUSH Q15M PRN; Protocol PRN Reason: per Hypoglycemia Standing Ord. Docusate Sodium (Docusate Sodium 100 Mg Capsule) 100 mg PO BID [facility] Last Admin: 10/28/21 08:04 Dose: 100 mg Documented by: HENRY Enoxaparin Sodium (Enoxaparin Sodium 40 Mg/0.4 Ml Syringe) 40 mg SUBCUT Q24H [facility] Last Admin: 10/28/21 08:04 Dose: 40 mg Documented by: HENRY Glucose (Glucose Gel 15 Gm Gel..Gram.) 15 gm PO Q15M PRN; Protocol PRN Reason: per Hypoglycemia Standing Ord. Guaifenesin (Guaifenesin La 600 Mg Tab.Er.12h) 600 mg PO BID [facility] Last Admin: 10/28/21 08:04 Dose: 600 mg Documented by: HENRY Hydromorphone HCl (Hydromorphone Hcl 0.5 Mg/0.5 Ml Syringe) 0.5 mg IVPUSH Q4H PRN; Protocol PRN Reason: Breakthrough Pain Insulin Human Lispro (Insulin Lispro 100 Unit/Ml 3 Ml Vial) 0 unit SUBCUT QIDACHS [facility]; Protocol Last Admin: 10/28/21 11:09 Dose: Not Given Documented by: HENRY Non-Admin Reason: No Insulin Coverage Levothyroxine Sodium (Levothyroxine Sodium 75 Mcg Tablet) 75 mcg PO DAILY@0630 [facility] Last Admin: 10/28/21 05:42 Dose: 75 mcg Documented by: CASTILKaterin Melatonin (Melatonin 3 Mg Tablet) 6 mg PO BEDTIME PRN PRN Reason: Insomnia Morphine Sulfate (Morphine Sulfate 2 Mg/Ml Cartridge) 1 mg IVPUSH Q4H PRN; Protocol PRN Reason: pain/sob Non-Formulary Medication (Brimonidine) 1 drop EYE-BOTH BID [facility] Omeprazole (Omeprazole 20 Mg Capsule.) 20 mg PO BID@0630,1630 [facility] Last Admin: 10/28/21 05:42 Dose: 20 mg Documented by: SHELBI Pharmacy Consult (Consult Rx Perform Med Rec) 1 each MISCELLANE ONCE PRN PRN Reason: Consult order Senna (Sennosides 8.6 Mg Tablet) 17.2 mg PO BEDTIME PRN PRN Reason: Constipation Sodium Chloride (0.9 % Sodium Chloride Flush 3 Ml Syringe) 3 ml IVFLUSH QSHIFT [facility] Last Admin: 10/28/21 08:05 Dose: 3 ml Documented by: HENRY Thiamine HCl (Thiamine Hcl 100 Mg Tablet) 100 mg PO DAILY [facility] Last Admin: 10/28/21 08:04 Dose: 100 mg Documented by: HENRY Labs CBC & Chem 7: 10/28/21 08:43 10/28/21 08:43 Labs: Laboratory Results - last 24 hr 10/27/21 10/27/21 10/28/21 16:23 20:38 07:09 MCV MCH MCHC RDW Plt Count MPV Absolute Nucleated RBC Nucleated RBC % (auto) Anion Gap Estim Creat Clear Calc Estimated GFR POC Glucose 275 H 182 H 178 H Random Glucose Calcium Lactate Dehydrogenase C-Reactive Protein 10/28/21 10/28/21 10/28/21 08:43 08:43 08:43 MCV 85.6 MCH 29.5 MCHC 34.4 RDW 13.3 Plt Count 125 L MPV 10.1 Absolute Nucleated RBC 0.000 Nucleated RBC % (auto) 0.0 Anion Gap 12 Estim Creat Clear Calc 89.5 Estimated GFR > 60 POC Glucose Random Glucose 209 H D Calcium 7.3 L Lactate Dehydrogenase 648 H C-Reactive Protein 4.72 H 10/28/21 10:55 MCV MCH MCHC RDW Plt Count MPV Absolute Nucleated RBC Nucleated RBC % (auto) Anion Gap Estim Creat Clear Calc Estimated GFR POC Glucose 144 H Random Glucose Calcium Lactate Dehydrogenase C-Reactive Protein Assessment and Plan (1) Pneumonia due to COVID-19 virus: Status: Acute (2) Acute respiratory failure: Status: Acute Assessment and Plan: 61M presented with sob Acute hypoxic respiratory failure secondary to COVID pneumonia. Continue Decadron day 5, id input appreciated, start baricitinib as no other options available Critical care evaluation appreciated, no need for ICU at this stage, will continue to monitor diffuse large B-cell lymphoma on chemo,follow-up oncology as outpatient diabetes insulin sliding scale hypertension BP mildly elevated, resume Coreg, amlodipine, clonidine, hydralazine monitor closely hypothyroid Synthroid DVT prophylaxis with Lovenox full code Quality Stroke Does the patient have a stroke diagnosis?: No VTE Prior VTE?: No VTE Risk Level:: Medical - moderate - high VTE Device Contraindication: N/A - Device Ordered VTE Drug Contraindication: Treatment Not Indicated
[2021-10-28 16:04] LABS: Glucose, Whole Blood 218 mg/dL (60-115)
[2021-10-28 20:26] LABS: Glucose, Whole Blood 241 mg/dL (60-115)
[2021-10-28] MEDS: Morphine Sulfate 2 MG/ML CARTRIDGE 1 MG IVPUSH (23:23)
[2021-10-29] VITALS (24 sets, daily range): BP systolic 105–137; BP diastolic 57–70; PULSE 60–102; RESP 18–31; TEMP 37–38.6; O2SAT 84–96
[2021-10-29] MEDS: Levothyroxine Sodium 75 MCG TABLET PO (04:47)
[2021-10-29] MEDS: Omeprazole 20 MG CAPSULE.DR PO (04:47)
[2021-10-29] MEDS: Morphine Sulfate 2 MG/ML CARTRIDGE 1 MG IVPUSH (04:51)
[2021-10-29] MEDS: Albuterol/Iprat 2.5/0.5MG 3 ML AMPUL.NEB INHALE ×4 (07:36→21:17)
[2021-10-29 07:41] LABS: Glucose, Whole Blood 108 mg/dL (60-115)
[2021-10-29] MEDS: 0.9 % Sodium Chloride Flush 3 ML SYRINGE IVFLUSH ×2 (08:29→15:47)
[2021-10-29 08:42] LABS: Hematocrit 24.2 % (42.0-52.0); Hemoglobin 8.4 g/dl (14.0-18.0); Mean Corpuscular HGB Conc 34.7 g/dl (31.0-36.0); Mean Corpuscular Hemoglobin 29.8 pg (27.0-33.0); Mean Corpuscular Volume 85.8 fL (80.0-98.0); Mean Platelet Volume 10.3 fL (9.4-12.4); Platelet Count 106 X10*3/uL (160-400); Red Blood Count 2.82 X10*6/uL (4.60-5.80); Red Cell Distribution Width 13.2 % (11.0-16.0); White Blood Count 10.3 X10*3/uL (4.8-10.8)
[2021-10-29 09:03] LABS: Anion Gap 11 (12-20); Blood Urea Nitrogen 25 mg/dL (9-16); C Reactive Protein 7.75 mg/dL (< or = 0.50); Calcium 7.4 mg/dL (8.4-10.2); Carbon Dioxide 25 mmol/L (22-29); Chloride 109 mmol/L (96-108); Creatinine Clr Calc Pharmacy 92.9; Estimated Glomerular Filt Rate > 60; Glucose Random 104 mg/dL (60-115); Lactate Dehydrogenase 572 U/L (118-273); Potassium 4.7 mmol/L (3.3-5.1); Sodium 140 mmol/L (135-145)
[2021-10-29] MEDS: Enoxaparin Sodium 40 MG/0.4 ML SYRINGE SUBCUT (09:29)
[2021-10-29] MEDS: cloNIDine HCL 0.1 MG TABLET PO (09:30)
[2021-10-29] MEDS: Docusate Sodium 100 MG CAPSULE PO (09:31)
[2021-10-29] MEDS: guaiFENesin LA 600 MG TAB.ER.12H PO (09:32)
[2021-10-29] MEDS: Atorvastatin Calcium 40 MG TABLET PO (09:32)
[2021-10-29] MEDS: Aspirin 81 MG TAB.CHEW PO (09:32)
[2021-10-29] MEDS: Thiamine HCL 100 MG TABLET PO (09:32)
[2021-10-29] MEDS: dexAMETHasone sod phosphate 4 MG/ML VIAL 6 MG IVPUSH (09:33)
[2021-10-29] MEDS: carvediloL 25 MG TABLET PO (09:33)
[2021-10-29] MEDS: amLODIPine Besylate 10 MG TABLET PO (09:33)
--- NOTE | 2021-10-29 11:35 | PC.NURSE ---
Skin/wound assessment completed. Patient has a very small pinpoint opening on coccyx. EPC barrier cream applied. Redness to buttocks. No other skin issues noted at this time.
--- NOTE | 2021-10-29 11:45 | P.PNIM_ITS ---
Subjective Subjective Date of Service: 10/29/21 Interval History: The patient was seen and evaluated this morning Laying in bed, feels little better today Maxed on oxygen supplement of non-rebreather and high-flow Reporting shortness of breath and generalized weakness No reported other overnight events. Systemic review: have generalizedweakness No chest pain, palpitation reporting dyspnea, coughing No abdominal pain, nausea or vomiting No urinary symptoms No any rash or wounds Physical Exam Vital Signs: Vital Signs: Last Vital Signs Temp 99.5 F 10/29/21 08:00 Pulse 73 10/29/21 11:23 Resp 20 10/29/21 11:23 BP 130/62 10/29/21 09:33 Pulse Ox 84 L 10/29/21 08:00 Oxygen Flow Rate 7 10/25/21 01:11 BMI result Body Mass Index 24.6 Const: Other: Constitutional : Alert, oriented, in moderate respiratory distress Neck : Normal inspection, Supple Cardiovascular : RRR, S1 S2, no lower extremity edema Respiratory : chest wall moving bilaterally, tachypneic, in moderate respiratory distress, on high-flow oxygen and non-rebreather Gastrointestinal: soft, lax, Normal bowel sounds, Non tender Skin : Warm, Dry Neurological : Alert & oriented x3, No focal deficit Objective Data Active Medications Acetaminophen (Acetaminophen 325 Mg Tablet) 650 mg PO Q6H PRN PRN Reason: Pain, Mild (Pain Scale 1-3) Albuterol/Ipratropium (Albuterol/Iprat 2.5/0.5mg 3 Ml Ampul.Neb) 3 ml INHALE RQ4H WHILE AWAKE [facility] Last Admin: 10/29/21 11:22 Dose: 3 ml Documented by: DARVIN Amlodipine Besylate (Amlodipine Besylate 10 Mg Tablet) 10 mg PO DAILY [facility]; Protocol Last Admin: 10/29/21 09:33 Dose: 10 mg Documented by: JENNIFER Aspirin (Aspirin 81 Mg Tab.Chew) 81 mg PO DAILY [facility] Last Admin: 10/29/21 09:32 Dose: 81 mg Documented by: JENNIFER Atorvastatin Calcium (Atorvastatin Calcium 40 Mg Tablet) 40 mg PO DAILY [facility] Last Admin: 10/29/21 09:32 Dose: 40 mg Documented by: JENNIFER Baricitinib (Baricitinib 2 Mg Tablet) 4 mg PO Q24H [facility] Stop: 11/10/21 13:01 Last Admin: 10/28/21 12:49 Dose: 4 mg Documented by: HENRY Carvedilol (Carvedilol 25 Mg Tablet) 25 mg PO BID [facility]; Protocol Last Admin: 10/29/21 09:33 Dose: 25 mg Documented by: JENNIFER Clonidine HCl (Clonidine Hcl 0.1 Mg Tablet) 0.1 mg PO BID [facility]; Protocol Last Admin: 10/29/21 09:30 Dose: 0.1 mg Documented by: JENNIFER Dexamethasone Sodium Phosphate (Dexamethasone Sod Phosphate 4 Mg/Ml Vial) 6 mg IVPUSH DAILY [facility] Last Admin: 10/29/21 09:33 Dose: 6 mg Documented by: JENNIFER Dextrose (Dextrose 50 % 25 Gm/50 Ml Vial) 25 gm IVPUSH Q15M PRN; Protocol PRN Reason: per Hypoglycemia Standing Ord. Docusate Sodium (Docusate Sodium 100 Mg Capsule) 100 mg PO BID [facility] Last Admin: 10/29/21 09:31 Dose: 100 mg Documented by: JENNIFER Enoxaparin Sodium (Enoxaparin Sodium 40 Mg/0.4 Ml Syringe) 40 mg SUBCUT Q24H [facility] Last Admin: 10/29/21 09:29 Dose: 40 mg Documented by: JENNIFER Glucose (Glucose Gel 15 Gm Gel..Gram.) 15 gm PO Q15M PRN; Protocol PRN Reason: per Hypoglycemia Standing Ord. Guaifenesin (Guaifenesin La 600 Mg Tab.Er.12h) 600 mg PO BID [facility] Last Admin: 10/29/21 09:32 Dose: 600 mg Documented by: JENNIFER Hydromorphone HCl (Hydromorphone Hcl 0.5 Mg/0.5 Ml Syringe) 0.5 mg IVPUSH Q4H PRN; Protocol PRN Reason: Breakthrough Pain Insulin Human Lispro (Insulin Lispro 100 Unit/Ml 3 Ml Vial) 0 unit SUBCUT QIDACHS [facility]; Protocol Last Admin: 10/29/21 08:47 Dose: Not Given Documented by: JENNIFER Non-Admin Reason: No Insulin Coverage Levothyroxine Sodium (Levothyroxine Sodium 75 Mcg Tablet) 75 mcg PO DAILY@0630 [facility] Last Admin: 10/29/21 04:47 Dose: 75 mcg Documented by: REILLY Melatonin (Melatonin 3 Mg Tablet) 6 mg PO BEDTIME PRN PRN Reason: Insomnia Morphine Sulfate (Morphine Sulfate 2 Mg/Ml Cartridge) 1 mg IVPUSH Q4H PRN; Protocol PRN Reason: pain/sob Last Admin: 10/29/21 04:51 Dose: 1 mg Documented by: REILLY Non-Formulary Medication (Brimonidine) 1 drop EYE-BOTH BID [facility] Omeprazole (Omeprazole 20 Mg Capsule.) 20 mg PO BID@0630,1630 [facility] Last Admin: 10/29/21 04:47 Dose: 20 mg Documented by: REILLY Pharmacy Consult (Consult Rx Perform Med Rec) 1 each MISCELLANE ONCE PRN PRN Reason: Consult order Senna (Sennosides 8.6 Mg Tablet) 17.2 mg PO BEDTIME PRN PRN Reason: Constipation Sodium Chloride (0.9 % Sodium Chloride Flush 3 Ml Syringe) 3 ml IVFLUSH QSHIFT [facility] Last Admin: 10/29/21 08:29 Dose: 3 ml Documented by: JENNIFER Thiamine HCl (Thiamine Hcl 100 Mg Tablet) 100 mg PO DAILY [facility] Last Admin: 10/29/21 09:32 Dose: 100 mg Documented by: JENNIFER Labs CBC & Chem 7: 10/29/21 08:08 10/29/21 08:08 Labs: Laboratory Results - last 24 hr 10/28/21 10/28/21 10/29/21 15:41 20:07 07:24 MCV MCH MCHC RDW Plt Count MPV Absolute Nucleated RBC Nucleated RBC % (auto) Anion Gap Estim Creat Clear Calc Estimated GFR POC Glucose 218 H 241 H 108 Random Glucose Calcium Lactate Dehydrogenase C-Reactive Protein 10/29/21 10/29/21 08:08 08:08 MCV 85.8 MCH 29.8 MCHC 34.7 RDW 13.2 Plt Count 106 L MPV 10.3 Absolute Nucleated RBC 0.000 Nucleated RBC % (auto) 0.0 Anion Gap 11 L Estim Creat Clear Calc 92.9 Estimated GFR > 60 POC Glucose Random Glucose 104 D Calcium 7.4 L Lactate Dehydrogenase 572 H C-Reactive Protein 7.75 H Assessment and Plan (1) Acute respiratory distress syndrome (ARDS) due to COVID-19 virus: Status: Acute (2) Acute respiratory failure with hypoxia: Status: Acute Assessment and Plan: 61M presented with sob Acute hypoxic respiratory failure secondary to COVID pneumonia. Continue Decadron day 6, id input appreciated, start baricitinib day 2 Critical care evaluation appreciated, no need for ICU at this stage, will continue to monitor wean oxygen down as tolerated diffuse large B-cell lymphoma on chemo,follow-up oncology as outpatient diabetes insulin sliding scale hypertension BP mildly elevated, resume Coreg, amlodipine, clonidine, hydralazine monitor closely hypothyroid Synthroid DVT prophylaxis with Lovenox full code Quality Stroke Does the patient have a stroke diagnosis?: No VTE Prior VTE?: No VTE Risk Level:: Medical - moderate - high VTE Device Contraindication: N/A - Device Ordered VTE Drug Contraindication: Treatment Not Indicated
[2021-10-29 12:15] LABS: Glucose, Whole Blood 162 mg/dL (60-115)
--- NOTE | 2021-10-29 12:29 | P.PNCC_ITS ---
Subjective Subjective Date of Service: 10/29/21 Interval History: 61-year-old gentleman with underlying history of diffuse large B-cell lymphoma recently on chemotherapy, chronic diastolic congestive heart failure, CKD stage 3, diabetes mellitus, complete heart block status post permanent pacemaker placement, hypothyroidism admitted on 10/25/2021 with dyspnea secondary to COVID-19, symptomatic for 2 weeks prior. Patient has been started on dexamethasone and baricitinib. Patient has been evaluated by infectious disease service. his hospital course is significant for progressive requiring initiation of noninvasive positive pressure ventilatory support and transfer to intensive care unit. Critical Care Time (minutes): 45 Physical Exam Vital Signs: Vital Signs: Last Vital Signs Temp 99.5 F 10/29/21 08:00 Pulse 73 10/29/21 11:23 Resp 20 10/29/21 11:23 BP 130/62 10/29/21 09:33 Pulse Ox 84 L 10/29/21 08:00 Oxygen Flow Rate 7 10/25/21 01:11 BMI result Body Mass Index 24.6 Const: General: no acute distress and lethargic ( arousable) Orientation/consciousness: lethargic ( arousable) Eyes: Sclerae: sclerae normal EOM: EOMs intact bilaterally Neck: Neck: Yes no lymphadenopathy, Yes trachea midline and Yes supple Resp: Effort & Inspection: normal respiratory effort and no respiratory distress Auscultation: crackles ( diffuse bilateral) Cardio: Rate: regular rate Rhythm: regular rhythm Heart sounds: no gallops, no murmurs and no rubs GI: Palpation (GI): Soft to palpation and Other GI palpation findings present ( Nontender) Auscultation: normal bowel sounds Extrem: General: No clubbing, No cyanosis and Yes pedal edema ( trace bilateral) Objective Data Labs CBC & Chem 7: 10/29/21 08:08 10/29/21 08:08 Labs: Laboratory Results - last 24 hr 10/28/21 10/28/21 10/29/21 15:41 20:07 07:24 WBC RBC Hgb Hct MCV MCH MCHC RDW Plt Count MPV Absolute Nucleated RBC Nucleated RBC % (auto) Sodium Potassium Chloride Carbon Dioxide Anion Gap BUN Creatinine Estim Creat Clear Calc Estimated GFR POC Glucose 218 H 241 H 108 Random Glucose Calcium Lactate Dehydrogenase C-Reactive Protein 12/31/21 12/31/21 12/31/21 08:08 08:08 12:01 WBC 10.3 RBC 2.82 L Hgb 8.4 L Hct 24.2 L MCV 85.8 MCH 29.8 MCHC 34.7 RDW 13.2 Plt Count 106 L MPV 10.3 Absolute Nucleated RBC 0.000 Nucleated RBC % (auto) 0.0 Sodium 140 Potassium 4.7 Chloride 109 H Carbon Dioxide 25 Anion Gap 11 L BUN 25 H Creatinine 0.79 Estim Creat Clear Calc 92.9 Estimated GFR > 60 POC Glucose 162 H Random Glucose 104 D Calcium 7.4 L Lactate Dehydrogenase 572 H C-Reactive Protein 7.75 H Microbiology Microbiology Results: Microbiology 10/25/21 01:55 Blood - Venous Blood Culture - Preliminary No growth after 48 hours. 10/25/21 01:55 Blood - Venous Blood Culture - Preliminary No growth after 48 hours. Progress Note: A&P Assessment and plan (1) Acute respiratory failure with hypoxia: Status: Acute (2) Acute respiratory distress syndrome (ARDS) due to COVID-19 virus: Status: Acute (3) CKD (chronic kidney disease), stage III: Status: Acute (4) HTN (hypertension): Status: Acute (5) Chronic diastolic CHF (congestive heart failure): Status: Acute (6) Hypothyroid: Status: Acute (7) Diabetes: Status: Acute (8) Diffuse large B cell lymphoma: Status: Acute Assessment and Plan: Assessment: 61-year-old gentleman with underlying B-cell lymphoma on chemotherapy admitted with acute hypoxic respiratory failure secondary to COVID- 19 ARDS with hospital course significant for progressive hypoxemia now requiring CPAP support. Plan: Neuro: No acute issues. Cardiac: No acute issues. Underlying history of diastolic congestive heart failure. Continue to maintain new anemia. Pulmonary: Acute hypoxic respiratory failure secondary to COVID-19 ARDS now requiring ventilatory support. Continue to titrate off as tolerated. Renal: No acute issues. Underlying CKD 3. Endo: No acute issues. Underlying diabetes mellitus. GI: No acute issues. ID: No acute issues Heme/Onc: No acute issues. Underlying B-cell on chemotherapy. Psych: No acute issues. Miscellaneous: No acute issues. Prophylaxis: Lovenox Diet: diabetic Critical care time spent: 45 minutes Quality Stroke Does the patient have a stroke diagnosis?: No VTE Prior VTE?: No VTE Risk Level:: Medical - moderate - high VTE Device Contraindication: N/A - Device Ordered VTE Drug Contraindication: Treatment Not Indicated
--- NOTE | 2021-10-29 13:28 | PC.NURSE ---
Transfer to ICU pt was transferred to ICU as planned prior to today; report given to loan and credit manager.
[2021-10-29 14:13] LABS: Appearance Urine CLEAR; Color Urine YELLOW; Glucose Urine UA 100 MG/DL (NEG); Leukocyte Esterase Urine NEG (NEG); Nitrite Urine NEG (NEG); UACC Culture Trigger NO; Urine Blood 1+ (NEG); Urine Ketones NEG (NEG); Urine Protein 2+ MG/DL (NEG-TRACE)
[2021-10-29 14:33] LABS: Renal Epithelial Cells Urine 1+ /LPF; Squamous Epithelial Cell Urine 1+ /LPF
[2021-10-29 14:34] LABS: UACC CULT YES
[2021-10-29 16:02] LABS: Glucose, Whole Blood 147 mg/dL (60-115)
[2021-10-29] MEDS: cloNIDine 0.2 MG PATCH.TDWK TRANSDERMA (17:30)
[2021-10-29 20:25] LABS: Glucose, Whole Blood 149 mg/dL (60-115)
--- NOTE | 2021-10-29 21:03 | PC.NURSE ---
Patient 's oxygen sats down to low 80's with minimal exertion; it took awhile to recover back to 94%. Dr Li was updated with the pt's respiratory status. Patient is not tolerating any PO intake. Clonidine po was changed to topical form.
[2021-10-30] VITALS (31 sets, daily range): BP systolic 90–145; BP diastolic 50–85; PULSE 60–104; RESP 20–45; TEMP 35–37.1; O2SAT 84–96; BMI 26.4
[2021-10-30] MEDS: 0.9 % Sodium Chloride Flush 3 ML SYRINGE IVFLUSH (01:03)
[2021-10-30] MEDS: fentaNYL citrate/PF 100 MCG/2 ML VIAL 50 MCG IVPUSH ×2 (04:00→17:30)
[2021-10-30 05:31] LABS: VBG Base Excess 1.6 mmol/L; VBG HCO3 25 mmol/L (22-26); VBG pCO2 37 mmHg; VBG pH 7.43 (7.32-7.43); VBG pO2 39 mmHg
[2021-10-30 05:33] LABS: Venous Blood Gas Refer to POC result
[2021-10-30 06:03] LABS: Basophils Percent Auto 0.1 % (0-2); Hematocrit 25.8 % (42.0-52.0); Hemoglobin 8.7 g/dl (14.0-18.0); Imm Gran Abs Auto 0.05 X10*3/uL (0.00-0.03); Imm Gran Pct Auto 0.4 % (0.0-0.4); Lymphocytes Absolute Auto 0.1 X10*3/uL (1.2-4.9); Lymphocytes Percent Auto 0.7 % (20-40); MANUAL DIFF FLAG SCAN; Mean Corpuscular HGB Conc 33.7 g/dl (31.0-36.0); Mean Corpuscular Hemoglobin 29.9 pg (27.0-33.0); Mean Corpuscular Volume 88.7 fL (80.0-98.0); Mean Platelet Volume 10.5 fL (9.4-12.4); Monocytes Absolute Auto 0.1 X10*3/uL (0.1-1.2); Monocytes Percent Auto 0.9 % (2-11); Neutrophils Percent Auto 97.9 % (45-73); Red Blood Count 2.91 X10*6/uL (4.60-5.80); Red Cell Distribution Width 13.3 % (11.0-16.0); SCAN SMEAR FLAG 1; White Blood Count 13.2 X10*3/uL (4.8-10.8)
[2021-10-30 06:21] LABS: Albumin Level 1.8 g/dL (3.5-5.0); Anion Gap 12 (12-20); Blood Urea Nitrogen 31 mg/dL (9-16); Calcium 7.2 mg/dL (8.4-10.2); Carbon Dioxide 26 mmol/L (22-29); Chloride 108 mmol/L (96-108); Creatinine Clr Calc Pharmacy 84.4; Estimated Glomerular Filt Rate > 60; Glucose Random 153 mg/dL (60-115); Magnesium 2.3 mg/dL (1.6-2.6); Phosphorus 4.4 mg/dL (2.7-4.5); Sodium 141 mmol/L (135-145)
[2021-10-30 06:28] LABS: Platelet Count 81 X10*3/uL (160-400); SLIDE REVIEW VERIFIED
[2021-10-30 07:13] LABS: Glucose, Whole Blood 165 mg/dL (60-115)
[2021-10-30] MEDS: Albuterol/Iprat 2.5/0.5MG 3 ML AMPUL.NEB INHALE ×4 (07:56→20:26)
[2021-10-30] MEDS: Albumin Human 25 % 100 ML IV ×3 (08:11→20:35)
[2021-10-30] MEDS: dexAMETHasone sod phosphate 4 MG/ML VIAL 6 MG IVPUSH (08:12)
[2021-10-30] MEDS: Enoxaparin Sodium 40 MG/0.4 ML SYRINGE SUBCUT (08:12)
[2021-10-30] MEDS: dexmedeTOMIDidine HCL/NS 400 MCG/100 ML INFUS..BTL 9.56 MCG IVCONT (10:32)
[2021-10-30 11:04] LABS: Glucose, Whole Blood 171 mg/dL (60-115)
--- NOTE | 2021-10-30 13:51 | P.PNCC_ITS ---
Subjective Subjective Date of Service: 10/30/21 Interval History: 61-year-old gentleman with underlying history of diffuse large B-cell lymphoma recently on chemotherapy, chronic diastolic congestive heart failure, CKD stage 3, diabetes mellitus, complete heart block status post permanent pacemaker placement, hypothyroidism admitted on 10/25/2021 with dyspnea secondary to COVID-19, symptomatic for 2 weeks prior. Patient has been started on dexamethasone and baricitinib. Patient has been evaluated by infectious disease service. his hospital course is significant for progressive requiring initiation of noninvasive positive pressure ventilatory support and transfer to intensive care unit. no events overnight. Continues to require noninvasive positive pressure ventilatory support. Critical Care Time (minutes): 30 Physical Exam Vital Signs: Vital Signs: Last Vital Signs Temp 97.5 F 10/30/21 13:00 Pulse 62 10/30/21 13:00 Resp 26 H 10/30/21 13:00 BP 100/54 L 10/30/21 13:00 Pulse Ox 91 L 10/30/21 13:00 Oxygen Flow Rate 7 10/25/21 01:11 BMI result Body Mass Index 26.4 Const: General: no acute distress, lethargic ( arousable) and other ( anxious) Orientation/consciousness: lethargic ( arousable) Eyes: Sclerae: sclerae normal EOM: EOMs intact bilaterally Neck: Neck: Yes no lymphadenopathy, Yes trachea midline and Yes supple Resp: Auscultation: crackles ( diffuse bilateral) Cardio: Rate: regular rate Rhythm: regular rhythm Heart sounds: no gallops, no murmurs and no rubs GI: Palpation (GI): Soft to palpation and Other GI palpation findings present ( Nontender) Auscultation: normal bowel sounds Extrem: General: No clubbing, No cyanosis and Yes pedal edema ( trace bilateral) Objective Data Labs CBC & Chem 7: 10/30/21 05:51 10/30/21 05:15 Labs: Laboratory Results - last 24 hr 10/29/21 10/29/21 10/29/21 13:41 15:51 20:14 WBC RBC Hgb Hct MCV MCH MCHC RDW Plt Count MPV Immature Gran % (Auto) Neut % (Auto) Lymph % (Auto) [place] % (Auto) Eos % (Auto) Baso % (Auto) Lymph # (Auto) [place] # (Auto) Eos # (Auto) Baso # (Auto) Abs Immat Gran (auto) Absolute Neuts (auto) Absolute Nucleated RBC Nucleated RBC % (auto) Smear Tech's Comments VBG pH VBG pCO2 VBG pO2 VBG HCO3 VBG O2 Saturation VBG Base Excess Sodium Potassium Chloride Carbon Dioxide Anion Gap BUN Creatinine Estim Creat Clear Calc Estimated GFR POC Glucose 147 H 149 H Random Glucose Calcium Phosphorus Magnesium Albumin Urine Color YELLOW Urine Appearance CLEAR Urine pH 6.0 Ur Specific Flora 1.020 Urine Protein 2+ H Urine Glucose (UA) 100 H Urine Ketones NEG Urine Blood 1+ H Urine Nitrite NEG Ur Leukocyte Esterase NEG Urine RBC 1-4 Urine WBC 10-14 H Ur Squamous Epith Cells 1+ Ur Renal Epithelial Cell 1+ Urine Bacteria NONE 10/30/21 10/30/21 10/30/21 05:15 05:24 05:51 WBC 13.2 H RBC 2.91 L Hgb 8.7 L Hct 25.8 L MCV 88.7 MCH 29.9 MCHC 33.7 RDW 13.3 Plt Count 81 L MPV 10.5 Immature Gran % (Auto) 0.4 Neut % (Auto) 97.9 H Lymph % (Auto) 0.7 L [place] % (Auto) 0.9 L Eos % (Auto) 0.0 Baso % (Auto) 0.1 Lymph # (Auto) 0.1 L [place] # (Auto) 0.1 Eos # (Auto) 0.0 Baso # (Auto) 0.0 Abs Immat Gran (auto) 0.05 H Absolute Neuts (auto) 13.0 H Absolute Nucleated RBC 0.000 Nucleated RBC % (auto) 0.0 Smear Tech's Comments VERIFIED VBG pH 7.43 VBG pCO2 37 VBG pO2 39 VBG HCO3 25 VBG O2 Saturation 61.0 VBG Base Excess 1.6 Sodium 141 Potassium 5.0 Chloride 108 Carbon Dioxide 26 Anion Gap 12 BUN 31 H Creatinine 0.87 Estim Creat Clear Calc 84.4 Estimated GFR > 60 POC Glucose Random Glucose 153 H D Calcium 7.2 L Phosphorus 4.4 Magnesium 2.3 Albumin 1.8 L Urine Color Urine Appearance Urine pH Ur Specific Flora Urine Protein Urine Glucose (UA) Urine Ketones Urine Blood Urine Nitrite Ur Leukocyte Esterase Urine RBC Urine WBC Ur Squamous Epith Cells Ur Renal Epithelial Cell Urine Bacteria 10/30/21 10/30/21 07:07 11:00 WBC RBC Hgb Hct MCV MCH MCHC RDW Plt Count MPV Immature Gran % (Auto) Neut % (Auto) Lymph % (Auto) [place] % (Auto) Eos % (Auto) Baso % (Auto) Lymph # (Auto) [place] # (Auto) Eos # (Auto) Baso # (Auto) Abs Immat Gran (auto) Absolute Neuts (auto) Absolute Nucleated RBC Nucleated RBC % (auto) Smear Tech's Comments VBG pH VBG pCO2 VBG pO2 VBG HCO3 VBG O2 Saturation VBG Base Excess Sodium Potassium Chloride Carbon Dioxide Anion Gap BUN Creatinine Estim Creat Clear Calc Estimated GFR POC Glucose 165 H 171 H Random Glucose Calcium Phosphorus Magnesium Albumin Urine Color Urine Appearance Urine pH Ur Specific Flora Urine Protein Urine Glucose (UA) Urine Ketones Urine Blood Urine Nitrite Ur Leukocyte Esterase Urine RBC Urine WBC Ur Squamous Epith Cells Ur Renal Epithelial Cell Urine Bacteria Microbiology Microbiology Results: Microbiology 10/29/21 Unknown Urine clean catch - Urine mullins top Urine Culture - Final No growth. 10/25/21 01:55 Blood - Venous Blood Culture - Final No growth after 5 days. 10/25/21 01:55 Blood - Venous Blood Culture - Final No growth after 5 days. Progress Note: A&P Assessment and plan (1) Acute respiratory failure with hypoxia: Status: Acute (2) Acute respiratory distress syndrome (ARDS) due to COVID-19 virus: Status: Acute (3) Diabetes: Status: Acute (4) CKD (chronic kidney disease), stage III: Status: Acute (5) Diffuse large B cell lymphoma: Status: Acute (6) Diabetes: Status: Acute (7) Chronic diastolic CHF (congestive heart failure): Status: Acute Assessment and Plan: Assessment: 61-year-old gentleman with underlying B-cell lymphoma on chemotherapy admitted with acute hypoxic respiratory failure secondary to COVID- 19 ARDS with hospital course significant for progressive hypoxemia now requiring CPAP support. Plan: Neuro: No acute issues. Cardiac: No acute issues. Underlying history of diastolic congestive heart failure. Continue to maintain euvolemia. Pulmonary: Acute hypoxic respiratory failure secondary to COVID-19 ARDS now requiring ventilatory support. Continue to titrate off as tolerated. Renal: No acute issues. Underlying CKD 3. Endo: No acute issues. Underlying diabetes mellitus. GI: No acute issues. ID: No acute issues Heme/Onc: No acute issues. Underlying B-cell on chemotherapy. Psych: No acute issues. Miscellaneous: No acute issues. Prophylaxis: Lovenox Diet: diabetic Critical care time spent: 30 minutes Quality Stroke Does the patient have a stroke diagnosis?: No VTE Prior VTE?: No VTE Risk Level:: Medical - moderate - high VTE Device Contraindication: N/A - Device Ordered VTE Drug Contraindication: Treatment Not Indicated
--- NOTE | 2021-10-30 15:33 | MHC.CM.PN ---
Pt on CPAP in ICU: bed hold [facility]. Plan is for a return when medically stable. Clinical updates sent to facility.
[2021-10-30] MEDS: dexmedeTOMIDidine HCL/NS 400 MCG/100 ML INFUS..BTL 15.3 MCG IVCONT (15:38)
[2021-10-30 16:22] LABS: Glucose, Whole Blood 218 mg/dL (60-115)
[2021-10-30] MEDS: Insulin Lispro 100 UNIT/ML 3 ML VIAL SUBCUT (16:59)
[2021-10-30] MEDS: HYDROmorphone HCl 0.5 MG/0.5 ML SYRINGE IVPUSH (18:10)
--- NOTE | 2021-10-30 18:36 | PC.NURSE ---
1715, pt began to desat as low as SaO2 71% on CPAP 12 FiO2 90%, RR 33 Vt 800, Ve 26.4L/min, air hunger, chest retracting, right lower lobe lung sounds now very dim w/ faint sound of fine crackles, earlier this am there was more ventilation auscultated here with some fine crackles. MD called and RT, per MD Li, RT placed pt on BIPAP 18/12 FiO2 100%, 50mcg IVP fentanyl given at 1730 with some therapeutic effect, pt appeared mildly improved, SaO2 only up to 82%. 0.5mg IVP dilaudid given at 1810 with positive therapeutic effect, Ve 17-19L/min SaO2 89%. Bed locked and in lowest position, call yoo in reach,.
[2021-10-30] MEDS: propofoL 1,000 MG/100 ML VIAL 13.77 MG IVCONT ×2 (19:00→23:53)
--- NOTE | 2021-10-30 19:13 | W.PM.CCHP ---
Procedures Date of Service Date of Service: 10/30/21 Intubation Intubation Comments: Patient emergently intubated for hypoxia refractory to BiPAP support with 7.5 cuffed ET tube under glide scope guidance with no immediate complications. X-ray for ET tube position is pending.
[2021-10-30] MEDS: Chlorhexidine Gluc Oral Rinse 15 ML MOUTHWASH BUCCAL (20:35)
[2021-10-30] MEDS: Etomidate 20 MG/10 ML VIAL IVPUSH (20:49)
[2021-10-30] MEDS: Ketamine HCl/NS 50 MG/5 ML SYRINGE IVPUSH (20:49)
--- NOTE | 2021-10-30 21:17 | PC.NURSE ---
Pt intubated at approx 1900. Given 50mg IVP ketamine and 20 mg IVP etomidate for RSI. ETT #7.5, 25 cm at lip. Bite block placed. On AC 20/400/15/100%. Started on propofol for sedation, titrated per emar. Levophed ordered and titrated to maintain MAP > 65. OGT placed. All lines/tubes verified by pCXR.
[2021-10-30 21:20] LABS: VBG Base Excess -6.7 mmol/L; VBG HCO3 18 mmol/L (22-26); VBG pCO2 34 mmHg; VBG pH 7.33 (7.32-7.43); VBG pO2 56 mmHg
[2021-10-30 23:44] LABS: Venous Blood Gas Refer to POC result
[2021-10-31] VITALS (32 sets, daily range): BP systolic 90–134; BP diastolic 7–75; PULSE 73–107; RESP 10–34; TEMP 35–37.7; O2SAT 82–98; BMI 27.6
[2021-10-31] MEDS: Insulin Lispro 100 UNIT/ML 3 ML VIAL SUBCUT ×5 (00:41→23:50)
[2021-10-31 00:46] LABS: Glucose, Whole Blood 268 mg/dL (60-115)
[2021-10-31] MEDS: Cisatracurium Besylate 20 MG/10 ML VIAL 10 MG IVPUSH (01:20)
[2021-10-31] MEDS: fentaNYL citrate/PF 100 MCG/2 ML VIAL IVPUSH ×2 (01:20→04:21)
[2021-10-31] MEDS: Albumin Human 25 % 100 ML IV (03:48)
[2021-10-31] MEDS: Cisatracurium Besylate 20 MG/10 ML VIAL IVPUSH (04:21)
[2021-10-31] MEDS: propofoL 1,000 MG/100 ML VIAL 13.77 MG IVCONT ×4 (05:40→20:54)
[2021-10-31 05:53] LABS: Glucose, Whole Blood 199 mg/dL (60-115)
[2021-10-31 06:00] LABS: VBG Base Excess -4.4 mmol/L; VBG HCO3 20 mmol/L (22-26); VBG pCO2 34 mmHg; VBG pH 7.37 (7.32-7.43); VBG pO2 47 mmHg
[2021-10-31] MEDS: Levothyroxine Sodium 75 MCG TABLET PO (06:00)
[2021-10-31 06:15] LABS: Basophils Percent Auto 0.1 % (0-2); Hematocrit 21.9 % (42.0-52.0); Hemoglobin 7.5 g/dl (14.0-18.0); Imm Gran Abs Auto 0.28 X10*3/uL (0.00-0.03); Imm Gran Pct Auto 1.1 % (0.0-0.4); Lymphocytes Absolute Auto 0.2 X10*3/uL (1.2-4.9); Lymphocytes Percent Auto 0.7 % (20-40); MANUAL DIFF FLAG SCAN; Mean Corpuscular HGB Conc 34.2 g/dl (31.0-36.0); Mean Corpuscular Hemoglobin 30.2 pg (27.0-33.0); Mean Corpuscular Volume 88.3 fL (80.0-98.0); Mean Platelet Volume 11.1 fL (9.4-12.4); Monocytes Absolute Auto 0.3 X10*3/uL (0.1-1.2); Neutrophils Absolute Auto 25.2 x10*3/uL (2.0-8.3); Neutrophils Percent Auto 97.1 % (45-73); Red Blood Count 2.48 X10*6/uL (4.60-5.80); Red Cell Distribution Width 13.5 % (11.0-16.0); SCAN SMEAR FLAG 1
[2021-10-31 06:20] LABS: Platelet Count 79 X10*3/uL (160-400)
[2021-10-31 06:31] LABS: Albumin Level 2.9 g/dL (3.5-5.0); Anion Gap 16 (12-20); Blood Urea Nitrogen 51 mg/dL (9-16); Calcium 7.2 mg/dL (8.4-10.2); Carbon Dioxide 21 mmol/L (22-29); Chloride 112 mmol/L (96-108); Creatinine Clr Calc Pharmacy 47.6; Estimated Glomerular Filt Rate 42; Glucose Random 208 mg/dL (60-115); Magnesium 2.6 mg/dL (1.6-2.6); Phosphorus 5.5 mg/dL (2.7-4.5); Potassium 5.1 mmol/L (3.3-5.1); Sodium 144 mmol/L (135-145)
--- NOTE | 2021-10-31 06:32 | PC.NURSE ---
Upon initial assessment pt is intubated sedated with prop. Levophed is being used to maintain a map >60. Pt does have a cough and gag. Pupils constricted but perrl. LS are clear. Tube is 7.5 25cm at the lip. AC with a rate of 20, volume of 400, 90% o2, and peep of 15. Pt does dsat and respiratory rate does increase after activity such as repositioning. Pt sats lower (high 80s) when repositioned to the right. When repo'd on the left pt sats in the mid 90's. Pt is v-paced in the 60's and 70's. Bilateral upper ext edema, worse in the left than right. Pt has an OG tube placed. Abd is soft non-tender. Pt has quan with minimal output 0-5ml hr. 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 Pt has a stage 2 on coccyx bandaged that is clean dry intact.
[2021-10-31 06:39] LABS: SLIDE REVIEW VERIFIED
[2021-10-31] MEDS: Enoxaparin Sodium 40 MG/0.4 ML SYRINGE SUBCUT (07:30)
[2021-10-31] MEDS: Aspirin 81 MG TAB.CHEW PO (07:31)
[2021-10-31] MEDS: Chlorhexidine Gluc Oral Rinse 15 ML MOUTHWASH BUCCAL ×3 (07:31→19:34)
[2021-10-31] MEDS: dexAMETHasone sod phosphate 4 MG/ML VIAL 6 MG IVPUSH (07:31)
[2021-10-31] MEDS: 0.9 % Sodium Chloride Flush 3 ML SYRINGE IVFLUSH ×2 (07:32→15:58)
[2021-10-31] MEDS: Albuterol/Iprat 2.5/0.5MG 3 ML AMPUL.NEB INHALE ×4 (07:49→20:10)
[2021-10-31 08:56] LABS: Venous Blood Gas Refer to POC result
[2021-10-31 11:12] LABS: Glucose, Whole Blood 200 mg/dL (60-115)
--- NOTE | 2021-10-31 11:36 | P.PNCC_ITS ---
Subjective Subjective Date of Service: 10/31/21 Interval History: ICU day 3 for acute hypoxic respiratory failure, COVID-19 ARDS 61-year-old gentleman with underlying history of diffuse large B-cell lymphoma recently on chemotherapy, chronic diastolic congestive heart failure, CKD stage 3, diabetes mellitus, complete heart block status post permanent pacemaker placement, hypothyroidism admitted on 10/25/2021 with dyspnea secondary to COVID-19, symptomatic for 2 weeks prior. Patient has been started on dexamethasone and baricitinib. Patient has been evaluated by infectious disease service. his hospital course is significant for progressive requiring initiation of noninvasive positive pressure ventilatory support and transfer to intensive care unit. His FiO2 requirements for the deteriorated requiring intubation 10/30/2021. No events overnight. Critical Care Time (minutes): 45 Physical Exam Vital Signs: Vital Signs: Last Vital Signs Temp 99.7 F 10/31/21 11:00 Pulse 106 H 10/31/21 11:00 Resp 34 H 10/31/21 11:00 BP 102/67 10/31/21 11:00 Pulse Ox 87 L 10/31/21 11:00 Oxygen Flow Rate 7 10/25/21 01:11 BMI result Body Mass Index 27.6 Const: General: no acute distress and other (Sedated on the vent) Eyes: Sclerae: sclerae normal EOM: EOMs intact bilaterally Neck: Neck: Yes no lymphadenopathy, Yes trachea midline and Yes supple Resp: Auscultation: crackles (Diffuse bilateral) Cardio: Rate: tachycardic Rhythm: regular rhythm Heart sounds: no gallops, no murmurs and no rubs GI: Palpation (GI): Soft to palpation and Other GI palpation findings present ( Nontender) Auscultation: normal bowel sounds Extrem: General: No clubbing, No cyanosis and Yes pedal edema (Trace bilateral) Objective Data Labs CBC & Chem 7: 10/31/21 05:50 10/31/21 05:50 Labs: Laboratory Results - last 24 hr 10/30/21 10/30/21 10/31/21 16:18 21:12 00:38 WBC RBC Hgb Hct MCV MCH MCHC RDW Plt Count MPV Immature Gran % (Auto) Neut % (Auto) Lymph % (Auto) [place] % (Auto) Eos % (Auto) Baso % (Auto) Lymph # (Auto) [place] # (Auto) Eos # (Auto) Baso # (Auto) Abs Immat Gran (auto) Absolute Neuts (auto) Absolute Nucleated RBC Nucleated RBC % (auto) Smear Tech's Comments VBG pH 7.33 VBG pCO2 34 VBG pO2 56 VBG HCO3 18 L VBG O2 Saturation 81.0 VBG Base Excess -6.7 Sodium Potassium Chloride Carbon Dioxide Anion Gap BUN Creatinine Estim Creat Clear Calc Estimated GFR POC Glucose 218 H 268 H Random Glucose Calcium Phosphorus Magnesium Albumin 10/31/21 10/31/21 10/31/21 05:42 05:50 05:50 WBC 26.0 H RBC 2.48 L Hgb 7.5 L Hct 21.9 L MCV 88.3 MCH 30.2 MCHC 34.2 RDW 13.5 Plt Count 79 L MPV 11.1 Immature Gran % (Auto) 1.1 H Neut % (Auto) 97.1 H Lymph % (Auto) 0.7 L [place] % (Auto) 1.0 L Eos % (Auto) 0.0 Baso % (Auto) 0.1 Lymph # (Auto) 0.2 L [place] # (Auto) 0.3 Eos # (Auto) 0.0 Baso # (Auto) 0.0 Abs Immat Gran (auto) 0.28 H Absolute Neuts (auto) 25.2 H Absolute Nucleated RBC 0.000 Nucleated RBC % (auto) 0.0 Smear Tech's Comments VERIFIED VBG pH VBG pCO2 VBG pO2 VBG HCO3 VBG O2 Saturation VBG Base Excess Sodium 144 Potassium 5.1 Chloride 112 H Carbon Dioxide 21 L Anion Gap 16 BUN 51 H D Creatinine 1.67 H Estim Creat Clear Calc 47.6 Estimated GFR 42 POC Glucose 199 H Random Glucose 208 H D Calcium 7.2 L Phosphorus 5.5 H Magnesium 2.6 Albumin 2.9 L D 10/31/21 10/31/21 05:54 11:07 WBC RBC Hgb Hct MCV MCH MCHC RDW Plt Count MPV Immature Gran % (Auto) Neut % (Auto) Lymph % (Auto) [place] % (Auto) Eos % (Auto) Baso % (Auto) Lymph # (Auto) [place] # (Auto) Eos # (Auto) Baso # (Auto) Abs Immat Gran (auto) Absolute Neuts (auto) Absolute Nucleated RBC Nucleated RBC % (auto) Smear Tech's Comments VBG pH 7.37 VBG pCO2 34 VBG pO2 47 VBG HCO3 20 L VBG O2 Saturation 76.0 VBG Base Excess -4.4 Sodium Potassium Chloride Carbon Dioxide Anion Gap BUN Creatinine Estim Creat Clear Calc Estimated GFR POC Glucose 200 H Random Glucose Calcium Phosphorus Magnesium Albumin Microbiology Microbiology Results: Microbiology 10/29/21 Unknown Urine clean catch - Urine mullins top Urine Culture - Final No growth. 10/25/21 01:55 Blood - Venous Blood Culture - Final No growth after 5 days. 10/25/21 01:55 Blood - Venous Blood Culture - Final No growth after 5 days. Progress Note: A&P Assessment and plan (1) Acute respiratory failure with hypoxia: Status: Acute (2) Acute respiratory distress syndrome (ARDS) due to COVID-19 virus: Status: Acute (3) Diabetes: Status: Acute (4) CKD (chronic kidney disease), stage III: Status: Acute (5) HTN (hypertension): Status: Acute (6) Chronic diastolic CHF (congestive heart failure): Status: Acute (7) Diffuse large B cell lymphoma: Status: Acute Assessment and Plan: Assessment: 61-year-old gentleman with underlying B-cell lymphoma on chemotherapy admitted with acute hypoxic respiratory failure secondary to COVID- 19 ARDS with hospital course significant for progressive hypoxemia now requiring ventilatory support. Plan: Neuro: No acute issues. Cardiac: No acute issues. Underlying history of diastolic congestive heart failure. Continue to maintain euvolemia. Pulmonary: Acute hypoxic respiratory failure secondary to COVID-19 ARDS now requiring ventilatory support. Continue to titrate off as tolerated. Renal: Acute kidney injury on the background of chronic kidney disease stage 3, likely secondary to COVID. Non oliguric. Continue to monitor renal indices and urine output. Endo: No acute issues. Underlying diabetes mellitus. GI: No acute issues. ID: No acute issues Heme/Onc: No acute issues. Underlying B-cell on chemotherapy. Psych: No acute issues. Miscellaneous: No acute issues. Prophylaxis: Lovenox Diet: Tube feeds Critical care time spent: 45 minutes Quality Stroke Does the patient have a stroke diagnosis?: No VTE Prior VTE?: No VTE Risk Level:: Medical - moderate - high VTE Device Contraindication: N/A - Device Ordered VTE Drug Contraindication: Treatment Not Indicated
[2021-10-31] MEDS: fentaNYL citrate/NS 1,000 MCG/100 ML PLAST..BAG 5 MCG IVCONT (11:45)
[2021-10-31 17:13] LABS: Glucose, Whole Blood 219 mg/dL (60-115)
--- NOTE | 2021-10-31 18:40 | PC.NURSE ---
vss, tmax 99.9. Levophed gtt titrated per EMAR sedated on propofol and fentanyl. pt reponds to noxious stimuli. fio2 titrated as pt tolerated. minimal u/o, bath given, repo pt as tolerated.
[2021-11-01] VITALS (32 sets, daily range): BP systolic 85–146; BP diastolic 59–77; PULSE 75–101; RESP 10–23; TEMP 35–37.5; O2SAT 87–98; BMI 28.7
[2021-11-01 00:15] LABS: Glucose, Whole Blood 225 mg/dL (60-115)
[2021-11-01] MEDS: propofoL 1,000 MG/100 ML VIAL 11.48 MG IVCONT ×2 (03:10→09:10)
[2021-11-01] MEDS: fentaNYL citrate/NS 1,000 MCG/100 ML PLAST..BAG 5 MCG IVCONT (03:11)
--- NOTE | 2021-11-01 04:30 | PC.NURSE ---
Received patient at 1900. Upon initial assessment patient is intubated with a 7.5 tube at 25cm at the lip. AC - R-20, V-400, 80% o2, 15 peep. LS are diminished throughout. Pt does desat to high 80s low 90s. Neurologically pt is sedated with propofol and fentanyl. Pupils are constricted but perrl. Pt is v-paced with hr in the 80s and 90s. at approximately 2200 levophed was stopped briefly for line change and patient did become hypotensive and drop his sats accordingly. Pt was hypotensive in the 50s and sats were mid 80s. Once levo was restarted at 1mcg, bp stabilized to low 100's and sats rebounded and he did not have another episode of hypotension. Pt does have +3 pitting edema on bilateral ext. Pt has +1 pitting truncal edema. Abd is soft non-tender. Pt did not have a bowel movement. 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 Pt has stage 2 on coccyx. It is bandaged and the bandage is clean dry and intact.
[2021-11-01] MEDS: Furosemide 40 MG/4 ML VIAL IVPUSH (05:16)
[2021-11-01 05:32] LABS: VBG Base Excess -5.5 mmol/L; VBG HCO3 19 mmol/L (22-26); VBG pCO2 36 mmHg; VBG pH 7.33 (7.32-7.43); VBG pO2 43 mmHg
[2021-11-01 05:35] LABS: Venous Blood Gas Refer to POC result
[2021-11-01 05:37] LABS: Glucose, Whole Blood 200 mg/dL (60-115)
[2021-11-01] MEDS: Insulin Lispro 100 UNIT/ML 3 ML VIAL SUBCUT ×2 (05:38→12:26)
[2021-11-01] MEDS: Levothyroxine Sodium 75 MCG TABLET PO (05:38)
[2021-11-01 05:45] LABS: MANUAL DIFF FLAG NO
[2021-11-01 05:48] LABS: Basophils Percent Auto 0.1 % (0-2); Hematocrit 23.4 % (42.0-52.0); Imm Gran Abs Auto 0.29 X10*3/uL (0.00-0.03); Imm Gran Pct Auto 1.3 % (0.0-0.4); Lymphocytes Absolute Auto 0.3 X10*3/uL (1.2-4.9); Lymphocytes Percent Auto 1.2 % (20-40); Mean Corpuscular HGB Conc 34.2 g/dl (31.0-36.0); Mean Corpuscular Hemoglobin 30.5 pg (27.0-33.0); Mean Corpuscular Volume 89.3 fL (80.0-98.0); Mean Platelet Volume 11.3 fL (9.4-12.4); Monocytes Absolute Auto 0.4 X10*3/uL (0.1-1.2); Monocytes Percent Auto 1.6 % (2-11); Neutrophils Percent Auto 95.8 % (45-73); Red Blood Count 2.62 X10*6/uL (4.60-5.80); Red Cell Distribution Width 13.9 % (11.0-16.0); SCAN SMEAR FLAG 1
[2021-11-01 05:52] LABS: Platelet Count 79 X10*3/uL (160-400)
[2021-11-01 06:05] LABS: Albumin Level 2.5 g/dL (3.5-5.0); Anion Gap 16 (12-20); Blood Urea Nitrogen 66 mg/dL (9-16); Calcium 6.9 mg/dL (8.4-10.2); Carbon Dioxide 20 mmol/L (22-29); Chloride 112 mmol/L (96-108); Creatinine Clr Calc Pharmacy 30.7; Estimated Glomerular Filt Rate 25; Glucose Random 217 mg/dL (60-115); Magnesium 2.6 mg/dL (1.6-2.6); Phosphorus 7.1 mg/dL (2.7-4.5); Potassium 5.8 mmol/L (3.3-5.1); Sodium 142 mmol/L (135-145)
[2021-11-01] MEDS: Albuterol/Iprat 2.5/0.5MG 3 ML AMPUL.NEB INHALE ×4 (07:58→20:24)
[2021-11-01] MEDS: 0.9 % Sodium Chloride Flush 3 ML SYRINGE IVFLUSH ×2 (09:01→14:13)
[2021-11-01] MEDS: Enoxaparin Sodium 40 MG/0.4 ML SYRINGE SUBCUT (09:01)
[2021-11-01] MEDS: Chlorhexidine Gluc Oral Rinse 15 ML MOUTHWASH BUCCAL ×2 (09:01→14:13)
[2021-11-01] MEDS: dexAMETHasone sod phosphate 4 MG/ML VIAL 6 MG IVPUSH (09:02)
[2021-11-01] MEDS: Aspirin 81 MG TAB.CHEW PO (09:02)
--- NOTE | 2021-11-01 09:58 | MHC.CM.PN ---
Pt continues in ICU on ventilatory support secondary to COVID in the setting of immunocompromise (+ cancer w/treatment) He is a bed hold at [facility] of . Call placed to [facility] to obtain additional information re: length of his stay, rehab potential/progress, ADL ability, etc. - placed on hold x 27 minutes then disconnected: Attempted again: placed on hold for 18 minutes then CM disconnected: Call placed to pt's brother and HCP, Mick. Per Mick, pt has been 'back and forth between [facility] and [facility]' He states his brother is 'very private and tight lipped' and never shared his wishes on medical care/end of life considerations. Per Mick, there is no other contacts that he is aware of. Transferred Mick to ICU MD for detailed discussion of pt's care needs/prognosis. Will send clinical updates to [facility] and attempt to contact them by phone later today. Will follow for finalization of d/c needs
[2021-11-01] MEDS: Calcium Gluconate/NaCl,Iso-Osm 1 GM/50 ML PLAST..BAG IV (10:46)
[2021-11-01] MEDS: Insulin Regular, Human 100 UNIT/ML 3 ML VIAL 10 UNIT IVPUSH (10:47)
[2021-11-01] MEDS: Sodium Bicarbonate 8.4% 50 MEQ/50 ML SYRINGE IVPUSH (10:47)
[2021-11-01] MEDS: Sodium Zirconium Cyclosilicate 10 GM POWD.PACK PO ×2 (10:48→14:13)
--- NOTE | 2021-11-01 11:04 | MHC.CLN ---
RE: CONSULT PT IS INTUBATED AND SEDATED DISCUSSED AT ROUNDS WITH PT TO REMAIN NPO FOR TODAY WHEN TF NEEDED; RECOMMEND NEPRO AT MAX GOAL RATE 45ML/HR WITH 240ML FREE WATER FLSUHES Q 6HRS TO PROVIDE 1944KCALS (2247KCALS WITH SEDATION; 30.8KCALS/KG), 87G PROTEIN (1.2G/KG), 1745ML TOTAL WATER FROM FORMULA AND FLUSHES (24ML/KG) MONITOR TOLERANCE, RESIDUALS AND LYTES SEE ALSO CLINICAL NUTRITION ASSESSMENT
[2021-11-01 11:49] LABS: Glucose, Whole Blood 230 mg/dL (60-115)
[2021-11-01] MEDS: propofoL 1,000 MG/100 ML VIAL 13.77 MG IVCONT ×2 (16:44→22:59)
--- NOTE | 2021-11-01 16:51 | PM.CCPN ---
Subjective Subjective Date of Service: 11/01/21 Interval History: Mr. Teixeira was admitted to the ICU on Oct 29 because of hypoxemic respiratory failure secondary to COVID pneumonia. 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 The patient is unmarried.? HCP is his brother Ted (cell [phone]).? They live in next door apartments in [place], [place].? For the last year, the patient has been going back and forth between hospitals and the [facility] in [facility] of cancer and heart issues.? Most recently the patient was at [facility].? Walks with a walker. The patient was brought to the ED from [facility] on 10/25/2021 bec of SOB and hypoxemia.? Reportedly dx?d with COVID a few days prior.? (My estimate of symptom onset date:? About Oct 18.)? Sat 86% on NC oxygen.? Chest x-ray showed patchy bilateral airspace opacities, R > L, suspicious for COVID.? Required HFNC oxygen right off the bat, Sats high 90?s on HFNC 100%. Admitted to Medicine.? Treated with dexamethasone and baricitinib.? Oxygenation worsened, and the patient was transferred to ICU on October 29 for NIV.? Required tracheal intubation and mechanical ventilation on October 30.? Post-intubation CXR showed much worse bilat disease. Last night, started on Levophed for hypotension of unclear etiology.? On exam today, sedated with propofol 30ug, fent 50ug.? On Levophed 0.8ug.? HR 80, paced, BP 106/70.? Been afebrile almost his entire hosp stay.? On AC 16/400/80%/+15, RR was 16, Ve 6.6L, PIP 37cm, Sat 96%.? Changed him to VC+ 16/400/70%/+13 -> RR 16, Ve 6.2L, PIP 27, ETCO2 25, Sat 93%.? This morning?s CVBG showed 7.33/36/-5.? Pupils sl unequal:? Left 3mm.? Rt. about 3.5mm.? No JVD at 30?. ?Chest CTA, w normal exp phase.? Very diminished heart tones.? I heard no murmur or gallops.? Abdomen benign.? He has no pretibial edema but at least 1+ central edema. We did a propofol holiday.? The patient woke up and was moving around with a strong cough, but no purposeful interaction.? Back onto sedation bec of compromised ventilation. I&O:? Urine output averaging 5 cc/hour. LABORATORY DATA:? As below.? Notably, white count down slightly. BUN/creatinine rising progressively to 66/2.5 today (from 51/1.6). ?Potassium up to 5.8 (from 5.1 yesterday). ?Phos up to 7.1.? Albumin 2.5. ECHOCARDIOGRAM for hemodynamic monitoring:? Image quality:? Good.? Findings: 1. At least mild-mod LVH. 2. LV cavity size is normal or low normal, with hyperdynamic LV systolic fxn with no gross RWMAs.? EF probably at least 700%. 3. RV looks top normal or mildly dilated.? Hyperdynamic RV fxn.? Septum is flattened and the septal base appears concave into the LV. 4. LA and RA not adequately assessed. 5. AoV not adequately assessed. 6. MV morphologically normal with trace MR by color ginny. 7. TV morphologically normal with trace TR by color ginny.? CWD jet measured 1.8 m/sec, or gradient of 13mm. 8. IVC 1.7cm, minimal inspiratory collapse.? Estimated CVP therefore 5-8mm.? RVSP estimate 23-26mm. 9. At lease moderate circumferential pericardial effusion, with no evidence of impaired right heart filling on echo.? Probable bilat pleural effusions. IMPRESSION:? 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 1. Significantly immunocompromised. 2. Underlying diastolic heart failure is c/w his echo findings above. 3. Bilat COVID pneumonia.? On Decadron and baricitinib, along w ASA and Lovenox 40 mg bid.? I will change the Decadron to Solu-Medrol 80 mg bid.? Add ivermectin, vit C reduced dose, up the Lovenox to 40 mg bid and ASA to 325 mg daily, add melatonin, thiamine, fluvoxamine, Vit D, half dose statin 4. Acute hypoxemic respiratory failure with ARDS.? 2? above.? FiO2 slowly coming down. 5. Hypotension.? Unclear etiology.? WBC is elevated, but he?s afebrile, lactate is normal.? Bacterial septic shock is unlikely. ?Viral sepsis is possible, and echo suggests that hypovolemia may be a component.? The pericardial effusion doesn?t seem to have any hemodynamic impact, per the echo.? We?ll send a urine sodium and try a fluid bolus.? Formal echo w cardiology consult in the morning. 6. Pericardial effusion.? See above. 7. Acute on CKD.? Likely ATN.? Echo suggests that hypovolemia may play a role.? Trial volume infusion.? Regardless, looks like he?s headed for dialysis.? Line placement is going to be tricky bec of his port on the right, and PPM on the left.? He needs a CVL and a temporary HD catheter. 8. Hyperkalemia.? Started him on LoKelma.? Added calcium, bicarb, insulin and glucose, and albuterol neb. 9. DM.? On SS insulin coverage. 10. ID.? Odell cultures pending.? No indication for abx at this time. 11. Neuropsych:? 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 Prognosis appears grim.? I spoke to his brother Ted at some length this morning.? I indicated to Ted that his brother is on life support, and has embarked on a long, arduous, burdensome, and possibly painful road.? And if he survives, he will be facing months of rehab, a good part of it on a machine. ?Ted thinks that his brother would want to continue with everything, including dialysis.? We will proceed accordingly. Critical Care time (including mult visits to the bedside, ext d/w Dr. Li, full chart rev, and hosp course summary):? 2+ hrs. Critical Care Time (minutes): 120 Physical Exam Vital Signs: Vital Signs: Last Vital Signs Temp 98.6 F 11/01/21 16:00 Pulse 81 11/01/21 16:00 Resp 16 11/01/21 16:00 BP 108/69 11/01/21 16:00 Pulse Ox 96 11/01/21 16:00 Oxygen Flow Rate 7 10/25/21 01:11 BMI result Body Mass Index 28.7 Objective Data Labs CBC & Chem 7: 11/01/21 05:25 11/01/21 20:20 Labs: Laboratory Results - last 24 hr 10/31/21 10/31/21 11/01/21 17:08 23:47 05:22 WBC RBC Hgb Hct MCV MCH MCHC RDW Plt Count MPV Immature Gran % (Auto) Neut % (Auto) Lymph % (Auto) [place] % (Auto) Eos % (Auto) Baso % (Auto) Lymph # (Auto) [place] # (Auto) Eos # (Auto) Baso # (Auto) Abs Immat Gran (auto) Absolute Neuts (auto) Absolute Nucleated RBC Nucleated RBC % (auto) VBG pH VBG pCO2 VBG pO2 VBG HCO3 VBG O2 Saturation VBG Base Excess Sodium Potassium Chloride Carbon Dioxide Anion Gap BUN Creatinine Estim Creat Clear Calc Estimated GFR POC Glucose 219 H 225 H 200 H Random Glucose Calcium Phosphorus Magnesium Albumin 11/01/21 11/01/21 11/01/21 05:25 05:25 05:26 WBC 23.0 H RBC 2.62 L Hgb 8.0 L Hct 23.4 L MCV 89.3 MCH 30.5 MCHC 34.2 RDW 13.9 Plt Count 79 L MPV 11.3 Immature Gran % (Auto) 1.3 H Neut % (Auto) 95.8 H Lymph % (Auto) 1.2 L [place] % (Auto) 1.6 L Eos % (Auto) 0.0 Baso % (Auto) 0.1 Lymph # (Auto) 0.3 L [place] # (Auto) 0.4 Eos # (Auto) 0.0 Baso # (Auto) 0.0 Abs Immat Gran (auto) 0.29 H Absolute Neuts (auto) 22.0 H Absolute Nucleated RBC 0.000 Nucleated RBC % (auto) 0.0 VBG pH 7.33 VBG pCO2 36 VBG pO2 43 VBG HCO3 19 L VBG O2 Saturation 68.0 VBG Base Excess -5.5 Sodium 142 Potassium 5.8 H Chloride 112 H Carbon Dioxide 20 L Anion Gap 16 BUN 66 H Creatinine 2.59 H Estim Creat Clear Calc 30.7 Estimated GFR 25 POC Glucose Random Glucose 217 H Calcium 6.9 L Phosphorus 7.1 H Magnesium 2.6 Albumin 2.5 L 11/01/21 11:46 WBC RBC Hgb Hct MCV MCH MCHC RDW Plt Count MPV Immature Gran % (Auto) Neut % (Auto) Lymph % (Auto) [place] % (Auto) Eos % (Auto) Baso % (Auto) Lymph # (Auto) [place] # (Auto) Eos # (Auto) Baso # (Auto) Abs Immat Gran (auto) Absolute Neuts (auto) Absolute Nucleated RBC Nucleated RBC % (auto) VBG pH VBG pCO2 VBG pO2 VBG HCO3 VBG O2 Saturation VBG Base Excess Sodium Potassium Chloride Carbon Dioxide Anion Gap BUN Creatinine Estim Creat Clear Calc Estimated GFR POC Glucose 230 H Random Glucose Calcium Phosphorus Magnesium Albumin Microbiology Microbiology Results: Microbiology 10/29/21 Unknown Urine clean catch - Urine mullins top Urine Culture - Final No growth. 10/25/21 01:55 Blood - Venous Blood Culture - Final No growth after 5 days. 10/25/21 01:55 Blood - Venous Blood Culture - Final No growth after 5 days. Quality Stroke Does the patient have a stroke diagnosis?: No VTE Prior VTE?: No VTE Risk Level:: Medical - moderate - high VTE Device Contraindication: N/A - Device Ordered VTE Drug Contraindication: Treatment Not Indicated Critical Care Time Critical Care Time (minutes): 120
[2021-11-01 17:06] LABS: Glucose, Whole Blood 138 mg/dL (60-115)
[2021-11-01 20:37] LABS: VBG Base Excess 29.2 mmol/L; VBG HCO3 51 mmol/L (22-26); VBG pCO2 39 mmHg; VBG pH 7.72 (7.32-7.43); VBG pO2 80 mmHg
[2021-11-01 20:38] LABS: Venous Blood Gas Refer to POC result
[2021-11-01 20:45] LABS: D Dimer High Sensitivity 2374 NG/ML
[2021-11-01 20:52] LABS: Lactic Acid 1.2 mmol/L (0.5-2.0)
[2021-11-01 20:55] LABS: Anion Gap 15 (12-20); Blood Urea Nitrogen 71 mg/dL (9-16); Calcium 6.9 mg/dL (8.4-10.2); Carbon Dioxide 23 mmol/L (22-29); Chloride 111 mmol/L (96-108); Creatinine Clr Calc Pharmacy 27.6; Estimated Glomerular Filt Rate 22; Glucose Random 160 mg/dL (60-115); Potassium 5.9 mmol/L (3.3-5.1); Sodium 143 mmol/L (135-145)
[2021-11-01 21:39] LABS: VBG Base Excess -4.3 mmol/L; VBG HCO3 22 mmol/L (22-26); VBG pCO2 46 mmHg; VBG pH 7.28 (7.32-7.43); VBG pO2 65 mmHg
[2021-11-01 21:39] LABS: Venous Blood Gas Refer to POC result
[2021-11-01 22:02] LABS: Appearance Urine CLEAR; Color Urine YELLOW; Glucose Urine UA NEG (NEG); Leukocyte Esterase Urine NEG (NEG); Nitrite Urine NEG (NEG); PH 5.5 (5.0-8.0); Specific Gravity - Urine >= 1.030 (1.005-1.025); Urine Blood NEG (NEG); Urine Ketones NEG (NEG); Urine Protein 2+ MG/DL (NEG-TRACE)
[2021-11-01 22:28] LABS: Bacteria Urine 2+ /LPF; Squamous Epithelial Cell Urine 1+ /LPF
[2021-11-02] VITALS (35 sets, daily range): BP systolic 105–146; BP diastolic 55–72; PULSE 67–87; RESP 9–17; TEMP 33.9–36.9; O2SAT 71–99; BMI 28.5
[2021-11-02 00:31] LABS: Venous Blood Gas Refer to POC result
[2021-11-02 00:32] LABS: VBG Base Excess -6.1 mmol/L; VBG HCO3 19 mmol/L (22-26); VBG pCO2 41 mmHg; VBG pH 7.28 (7.32-7.43); VBG pO2 49 mmHg
[2021-11-02] MEDS: fentaNYL citrate/NS 1,000 MCG/100 ML PLAST..BAG 5 MCG IVCONT (00:46)
[2021-11-02] MEDS: Calcium Gluconate/NaCl,Iso-Osm 1 GM/50 ML PLAST..BAG IV (00:54)
[2021-11-02] MEDS: Sodium Zirconium Cyclosilicate 10 GM POWD.PACK PO ×4 (00:55→20:39)
[2021-11-02] MEDS: Chlorhexidine Gluc Oral Rinse 15 ML MOUTHWASH BUCCAL ×4 (00:55→20:38)
[2021-11-02] MEDS: 0.9 % Sodium Chloride Flush 3 ML SYRINGE IVFLUSH ×3 (01:07→14:43)
[2021-11-02] MEDS: Insulin Lispro 100 UNIT/ML 3 ML VIAL SUBCUT ×5 (01:14→23:22)
[2021-11-02 01:32] LABS: Glucose, Whole Blood 189 mg/dL (60-115)
[2021-11-02] MEDS: Albuterol Sulfate (0.083%) 2.5 MG/3 ML VIAL.NEB 10 MG INHALE (02:14)
[2021-11-02] MEDS: Albumin Human 25 % 100 ML IV (03:08)
[2021-11-02 05:31] LABS: Glucose, Whole Blood 166 mg/dL (60-115)
[2021-11-02] MEDS: Levothyroxine Sodium 75 MCG TABLET PO (05:39)
[2021-11-02] MEDS: propofoL 1,000 MG/100 ML VIAL 13.77 MG IVCONT (05:39)
[2021-11-02 05:54] LABS: VBG HCO3 19 mmol/L (22-26); VBG pCO2 39 mmHg; VBG pO2 53 mmHg
[2021-11-02 05:56] LABS: Venous Blood Gas Refer to POC result
[2021-11-02 06:06] LABS: Mean Corpuscular HGB Conc 34.4 g/dl (31.0-36.0); Mean Platelet Volume 11.5 fL (9.4-12.4); Red Cell Distribution Width 14.2 % (11.0-16.0); White Blood Count 14.3 X10*3/uL (4.8-10.8)
[2021-11-02 06:33] LABS: Alanine Aminotransferase 24 U/L (0-40); Albumin Level 2.8 g/dL (3.5-5.0); Alkaline Phosphatase 82 U/L (39-117); Anion Gap 16 (12-20); Aspartate Amino Transferase 29 U/L (5-37); Bilirubin Total 0.4 mg/dL (0.0-1.0); Blood Urea Nitrogen 80 mg/dL (9-16); C Reactive Protein 6.08 mg/dL (< or = 0.50); Calcium 7.2 mg/dL (8.4-10.2); Carbon Dioxide 21 mmol/L (22-29); Chloride 110 mmol/L (96-108); Creatinine Clr Calc Pharmacy 24.8; Estimated Glomerular Filt Rate 20; Glucose Random 188 mg/dL (60-115); Lactate Dehydrogenase 574 U/L (118-273); Magnesium 2.7 mg/dL (1.6-2.6); Phosphorus 8.1 mg/dL (2.7-4.5); Potassium 5.9 mmol/L (3.3-5.1); Sodium 141 mmol/L (135-145); Total Protein 4.2 g/dL (6.5-8.0)
[2021-11-02 06:34] LABS: B Type Natriuretic Peptide 51 pg/mL (<100)
[2021-11-02 06:47] LABS: Procalcitonin 4.57 ng/mL
--- NOTE | 2021-11-02 07:00 | CA_ITS ---
Transthoracic Echocardiogram Patient (Last, First, Middle): Korey Teixeira, Gender: Male Date of : 1960 Age: 61 Procedure Date: 11/02/2021 Procedure Type: Transthoracic Echocardiogram Location: ICU Height: 172.72 cm Weight: 78.02 kg BSA: 1.92 m2 Heart Rate: bpm BP: 105 / 55 mmHg Board Of Education Secretary: SHIRA Maldonado MD: Aleksandr Garland MD Enamel Sprayer: Onofre Salmeron MD Symptoms: Large pericardial effusion with refractory hypotension. Study Quality: Technically Difficult ECG Rhythm: Sinus Conclusions: - 1. Moderate pericardial effusion without clear respiratory variation and therefore not suggestive of tamponade physiology 2. Hyperdynamic LV systolic function with impaired relaxation filling pattern 3. Limited evaluation of cardiac valvular Doppler 4. IVC is not dilated but does not collapse however patient on positive-pressure ventilation. Findings Left Ventricle Normal left ventricular cavity size. There is normal left ventricular wall thickness. The left ventricular systolic function is hyperdynamic. The visually estimated ejection fraction is >70%. Spectral Doppler is indicative of an impaired relaxation filling pattern. Right Ventricle Normal right ventricular cavity size. There is normal right ventricular systolic function. Atria The left atrium was not well visualized. Interatrial shunt cannot be excluded. The right atrium was not well visualized. Aortic Valve The aortic valve was not well visualized. Mitral Valve The mitral valve was not well visualized. There is mild mitral annular calcification. Pulmonic Valve The pulmonic valve was not well visualized. Tricuspid Valve The tricuspid valve was not well visualized. There is trace tricuspid valve regurgitation. Great Vessels All visible segments of the aorta are normal in size. The pulmonary artery was not well visualized. Venous The inferior vena cava is normal in size and does not collapse with inspiration. Pericardium/Pleural There is a moderate circumferential pericardial effusion. There is a moderate bilateral pleural effusion. There are no definitive echocardiographic findings of tamponade physiology. The inferior vena cava is normal in size with preserved respiratory variability. No discernable variation of the mitral valve and tricuspid valve Doppler velocities with respiration. Prior Study Comparison No prior study available for comparison. Measurements 2D Linear Measurements IVSd: 1.15 0.6-0.9/0.6-1.0 cm LVIDd: 4.02 3.9-5.3/4.2-5.9 cm LVIDd Index: 2.09 2.4-3.2/2.2-3.1 cm/m2 LVIDs: 2.25 2.0-3.6 cm LVPWd: 1.07 0.7-1.1 cm LV Mass: 185.13 67-162/88-224 g LV Mass Index: 96.42 43-95/49-115 g/m2 Mitral Valve MV Pk E: 0.78 MV PK A: 1.03 MV Decel Time: 194.00 E/A: 0.80 PHT: 57.00 MVA PHT: 3.86 Decel [place]: 4.03 Diastolic Function MV Pk E: 0.78 MV Pk A: 1.03 E/A: 0.80 Right Ventricle TAPSE (mm): 1.88 TVS' Greg: 8.81 Tricuspid Valve TR Pk Greg: 1.75 TR Pk Grad: 12.00 Updated in Other Vendor System with Status of Final Onofre Salmeron MD electronically signed on 11/02/2021 11:59:03 AM with status of Final
[2021-11-02 07:20] LABS: Platelet Count 65 X10*3/uL (160-400)
[2021-11-02 07:24] LABS: Hemoglobin 6.2 g/dl (14.0-18.0)
[2021-11-02 07:31] LABS: Ferritin 5434 ng/mL (20-250)
[2021-11-02] MEDS: Ascorbic Acid 500 MG TABLET PO ×2 (08:20→20:39)
[2021-11-02] MEDS: Enoxaparin Sodium 40 MG/0.4 ML SYRINGE SUBCUT ×2 (08:20→20:39)
[2021-11-02] MEDS: Thiamine HCL 100 MG TABLET 200 MG PO ×2 (08:20→20:39)
[2021-11-02] MEDS: methylPREDNISolone Sod Succ 125 MG/2 ML VIAL 80 MG IVPUSH ×2 (08:20→20:39)
[2021-11-02] MEDS: Cholecalciferol (Vitamin D3) 25 MCG TABLET 50 MCG PO (08:21)
[2021-11-02] MEDS: Aspirin 325 MG TABLET PO (08:28)
[2021-11-02] MEDS: fluvoxaMINE Maleate 50 MG TABLET PO ×2 (08:28→20:39)
[2021-11-02] MEDS: Albuterol/Iprat 2.5/0.5MG 3 ML AMPUL.NEB INHALE ×4 (08:39→21:01)
[2021-11-02] MEDS: propofoL 1,000 MG/100 ML VIAL 18.36 MG IVCONT ×4 (09:29→23:22)
--- NOTE | 2021-11-02 10:18 | PM.CNNEP ---
History of Present Illness Reason for Consult Consult date: 11/02/21 Reason for consult: ADRIANNA Chief Complaint Chief complaint: Hypoxia; covid positive History of Present Illness Narrative: 61-year-old male with a past medical history of hypertension, hyperlipidemia, diabetes, chronic kidney disease, diastolic CHF, diffuse large B-cell lymphoma received chemotherapy 2 weeks ago; hypothyroidism,.? Presented to the hospital with a chief complaint of shortness of breath.? Patient reports that he was diagnosed with COVID few days ago; has been having shortness of breath and generalized weakness Initial Creatinine was 1.2 whic has gradually increased to 3.25 with hyperkalemia Currently oliguric Review of Systems Review of Systems Unable to obtain Intubated PMFSH Past Medical History Medical History (Updated 10/29/21 @ 12:33 by Evelio Li MD) Chronic diastolic CHF (congestive heart failure) CKD (chronic kidney disease), stage II CKD (chronic kidney disease), stage III Complete heart block Diabetes Diffuse large B cell lymphoma HTN (hypertension) Hypothyroid Orthostatic hypotension Family History Family history: reviewed and not pertinent Surgical History Surgical History H/O right hemicolectomy History of appendectomy S/P placement of cardiac pacemaker Social History Social History Household Members: Other Household Members Other:: retirement Housing: Long-Term Do you presently have visiting nurse or other home services: Yes Alcohol intake: never Patient Tobacco Use Status: Never used Tobacco Advance Directives Date on File: 08/12/21 service: No Current occupational status: disabled Meds Allergies Allergy/AdvReac Type Severity Reaction Status Date / Time No Known Allergies Allergy Unverified 08/12/21 02:07 Active Medications: Current Medications Albuterol/Ipratropium (Albuterol/Iprat 2.5/0.5mg 3 Ml Ampul.Neb) 3 ml INHALE RQ4H WHILE AWAKE [facility] Last Admin: 11/02/21 08:39 Dose: 3 ml Documented by: Ascorbic Acid (Ascorbic Acid 500 Mg Tablet) 500 mg PO BID [facility] Last Admin: 11/02/21 08:20 Dose: 500 mg Documented by: Aspirin (Aspirin 325 Mg Tablet) 325 mg PO DAILY [facility] Last Admin: 11/02/21 08:28 Dose: 325 mg Documented by: Atorvastatin Calcium (Atorvastatin Calcium 40 Mg Tablet) 40 mg PO BEDTIME [facility] Baricitinib (Baricitinib 2 Mg Tablet) 1 mg PO Q24H [facility] Stop: 11/12/21 13:01 Chlorhexidine Gluconate (Chlorhexidine Gluc Oral Rinse 15 Ml Mouthwash) 15 ml BUCCAL TID [facility] Last Admin: 11/02/21 08:20 Dose: 15 ml Documented by: Enoxaparin Sodium (Enoxaparin Sodium 40 Mg/0.4 Ml Syringe) 40 mg SUBCUT Q24H [facility] Last Admin: 11/02/21 08:20 Dose: 40 mg Documented by: Fentanyl (Fentanyl Citrate/Pf 100 Mcg/2 Ml Vial) 100 mcg IVPUSH Q5M PRN; Protocol PRN Reason: WOB Fluvoxamine Maleate (Fluvoxamine Maleate 50 Mg Tablet) 50 mg PO BID [facility] Last Admin: 11/02/21 08:28 Dose: 50 mg Documented by: Propofol (Diprivan) 1,000 mg in 100 mls @ 0 mls/hr IVCONT .Q0M [facility]; Protocol Last Admin: 11/02/21 09:29 Dose: 40 mcg/kg/min, 18.36 mls/hr Documented by: Fentanyl (Sublimaze/Ns) 1,000 mcg in 100 mls @ 0 mls/hr IVCONT .Q0M [facility]; Protocol Last Admin: 11/02/21 00:46 Dose: 50 mcg/hr, 5 mls/hr Documented by: Norepinephrine Bitartrate 32 (mg/ Sodium Chloride) 250 mls @ 0 mls/hr IVCONT .Q0M [facility]; Protocol Last Admin: 11/02/21 08:30 Dose: 30.82 mls/hr Documented by: Insulin Human Lispro (Insulin Lispro 100 Unit/Ml 3 Ml Vial) 0 unit SUBCUT Q6H [facility]; Protocol Last Admin: 11/02/21 05:41 Dose: 2 unit Documented by: Ivermectin (Ivermectin 3 Mg Tablet) 39 mg PO DAILY [facility] Stop: 11/07/21 08:59 Last Admin: 11/02/21 08:21 Dose: 39 mg Documented by: Levothyroxine Sodium (Levothyroxine Sodium 75 Mcg Tablet) 75 mcg PO DAILY@0630 [facility] Last Admin: 11/02/21 05:39 Dose: 75 mcg Documented by: Melatonin (Melatonin 3 Mg Tablet) 9 mg PO BEDTIME [facility] Methylprednisolone Sodium Succinate (Methylprednisolone Sod Succ 125 Mg/2 Ml Vial) 80 mg IVPUSH Q12H [facility] Last Admin: 11/02/21 08:20 Dose: 80 mg Documented by: Omeprazole (Omeprazole 20 Mg/10 Ml Susp.Recon) 40 mg PO DAILY@0630 [facility] Last Admin: 11/02/21 05:39 Dose: 40 mg Documented by: Pharmacy Consult (Consult Rx Perform Med Rec) 1 each MISCELLANE ONCE PRN PRN Reason: Consult order Sodium Chloride (0.9 % Sodium Chloride Flush 3 Ml Syringe) 3 ml IVFLUSH QSHIFT [facility] Last Admin: 11/02/21 07:59 Dose: 3 ml Documented by: Sodium Zirconium Cyclosilicate (Sodium Zirconium Cyclosilicate 10 Gm Powd.Pack) 10 gm PO TID [facility] Last Admin: 11/02/21 08:20 Dose: 10 gm Documented by: Thiamine HCl (Thiamine Hcl 100 Mg Tablet) 200 mg PO BID [facility] Last Admin: 11/02/21 08:20 Dose: 200 mg Documented by: Vitamin D (Cholecalciferol (Vitamin D3) 25 Mcg Tablet) 50 mcg PO DAILY [facility] Last Admin: 11/02/21 08:21 Dose: 50 mcg Documented by: Home Medications Medication Instructions Recorded Confirmed Last Taken Type amlodipine 10 mg tablet (Norvasc) 10 mg PO DAILY 08/12/21 10/25/21 Unknown History aspirin 81 mg chewable tablet 81 mg PO DAILY 08/12/21 10/25/21 Unknown History brimonidine 0.1 % eye drops 1 drp OPHTHALMIC (EYE) BID 08/12/21 10/25/21 Unknown History carvedilol 25 mg tablet 25 mg PO BID 08/12/21 10/25/21 Unknown History guaifenesin 600 mg tablet, 600 mg PO Q12H 08/12/21 10/25/21 Unknown History extended release 12 hr insulin lispro 100 unit/mL See Protocol SUBCUT QIDACHS 08/12/21 10/25/21 Unknown History subcutaneous solution (Humalog U-100 Insulin) levothyroxine 75 mcg tablet 75 mcg PO DAILY@0630 08/12/21 10/25/21 Unknown History rosuvastatin 10 mg tablet 10 mg PO DAILY 08/12/21 10/25/21 Unknown History acetaminophen 325 mg tablet 650 mg PO Q4H PRN 10/25/21 10/25/21 Unknown History benzonatate 200 mg capsule 200 mg PO Q8H PRN 10/25/21 10/25/21 Unknown History bisacodyl 10 mg rectal suppository 10 mg TN DAILY PRN 10/25/21 10/25/21 Unknown History clonidine HCl 0.1 mg tablet 0.1 mg PO BID 10/25/21 10/25/21 Unknown History dronabinol 2.5 mg capsule 2.5 mg PO BID 10/25/21 10/25/21 Unknown History guaifenesin 100 mg/5 mL oral 200 mg PO Q6H PRN 10/25/21 10/25/21 Unknown History liquid (Tussin) hydralazine 50 mg tablet 50 mg PO QID 10/25/21 10/25/21 Unknown History magnesium citrate (Citrate of 300 ml PO DAILY PRN 10/25/21 10/25/21 Unknown History Magnesia) magnesium hydroxide 400 mg/5 mL 30 ml PO DAILY PRN 10/25/21 10/25/21 Unknown History oral suspension (Milk of Magnesia) multivitamin with minerals 1 tab PO DAILY 10/25/21 10/25/21 Unknown History omeprazole 20 mg capsule,delayed 20 mg PO BID@0630,1630 10/25/21 10/25/21 Unknown History release ondansetron HCl 8 mg tablet 8 mg PO Q8H PRN 10/25/21 10/25/21 Unknown History prochlorperazine maleate 10 mg 10 mg PO Q6H PRN 10/25/21 10/25/21 Unknown History tablet thiamine HCl (vitamin B1) 100 mg 100 mg PO DAILY 10/25/21 10/25/21 Unknown History tablet Physical Exam Vital Signs: Last Vital Signs Temp 97.7 F 11/02/21 09:52 Pulse 77 11/02/21 10:00 Resp 10 L 11/02/21 10:00 BP 136/65 11/02/21 10:00 Pulse Ox 90 L 11/02/21 10:00 Oxygen Flow Rate 7 10/25/21 01:11 BMI result Body Mass Index 28.5 Const Other: Intubated General: ill appearing Neck Neck: Yes supple and Yes no JVD Resp Auscultation: rhonchi and diminished lung sounds Cardio Jugular venous distension: no JVD Palpation: no palpable S3 Heart sounds: no rubs GI Inspection: Yes normal to inspection Palpation (GI): Soft to palpation Auscultation: normal bowel sounds Skin General skin exam: no rashes or lesions noted Neuro Other: sedated Extrem Right upper extremity: No no edema Left upper extremity: No no edema Results Lab Results Result Diagrams: 11/03/21 05:22 11/03/21 05:22 Lab results: Chemistry 10/31/21 11/01/21 11/01/21 05:50 05:25 20:20 Sodium 144 142 143 Potassium 5.1 5.8 H 5.9 H Carbon Dioxide 21 L 20 L 23 BUN 51 H D 66 H 71 H Creatinine 1.67 H 2.59 H 2.93 H Calcium 7.2 L 6.9 L 6.9 L Phosphorus 5.5 H 7.1 H 11/02/21 05:40 Sodium 141 Potassium 5.9 H Carbon Dioxide 21 L BUN 80 H Creatinine 3.25 H Calcium 7.2 L Phosphorus 8.1 H Hematology 10/31/21 11/01/21 11/02/21 05:50 05:25 05:40 WBC 26.0 H 23.0 H 14.3 H Hgb 7.5 L 8.0 L 6.2 L* D Plt Count 79 L 79 L 65 L Urinalysis 11/01/21 20:20 Urine Color YELLOW Urine Appearance CLEAR Urine pH 5.5 Ur Specific Sabine >= 1.030 H Urine Protein 2+ H Urine Glucose (UA) NEG Urine Ketones NEG Urine Blood NEG Urine Nitrite NEG Ur Leukocyte Esterase NEG Urine RBC 1-4 Urine WBC 1-4 Ur Squamous Epith Cells 1+ Assessment and Plan (1) Acute respiratory failure with hypoxia: Status: Acute (2) CKD (chronic kidney disease), stage III: Status: Acute ADRIANNA superimposed on CKD in a setting of COVID -19 Probably sustaiend ATN Currently oliguric with hyperkalemia He would requre dialysis Discussed with ICU attending Will arrange for dialysis once catheter is inserted Overall prognosis guarded Procedures Date of Service Date of Service: 11/02/21
[2021-11-02 12:08] LABS: Glucose, Whole Blood 207 mg/dL (60-115)
[2021-11-02] MEDS: fentaNYL citrate/NS 1,000 MCG/100 ML PLAST..BAG 10 MCG IVCONT (17:05)
[2021-11-02 18:15] LABS: Glucose, Whole Blood 227 mg/dL (60-115)
--- NOTE | 2021-11-02 18:45 | PM.CCPN ---
Subjective Subjective Date of Service: 11/02/21 Interval History: Mr. Teixeira was admitted to the ICU on Oct 29 because of hypoxemic respiratory failure secondary to COVID pneumonia. 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 The patient never , has no children.? HCP is his brother Ted (cell [phone]).? They live in next door apartments in [place], [place].? For the last year, the patient has been going back and forth between hospitals and the [facility] in [facility] of cancer and heart issues.? Most recently the patient was at [facility].? Walks with a walker. The patient was brought to the ED from [facility] on 10/25/2021 bec of SOB and hypoxemia.? Reportedly dx?d with COVID a few days prior.? (My estimate of symptom onset date:? About Oct 18.)? Sat 86% on NC oxygen.? Chest x-ray showed patchy bilateral airspace opacities, R > L, suspicious for COVID.? Required HFNC oxygen right off the bat, Sats high 90?s on HFNC 100%. Admitted to Medicine.? Treated with dexamethasone and baricitinib.? Oxygenation worsened, and the patient was transferred to ICU on October 29 for NIV.? Required tracheal intubation and mechanical ventilation on October 30.? Post-intubation CXR showed much worse bilat disease.? He was started on Levophed yen-intubation bec of hypotension. We did a propofol holiday yesterday.? The patient woke up and was moving around with a strong cough, but no purposeful interaction.? Back onto sedation bec of compromised ventilation. On exam today, sedated with propofol 30ug, fent 50ug.? He was very tense, biting down on the ED.? His dentition is in very poor, carious condition.? He lost two teeth today.? One was found outside his mouth, one inside his mouth.? He required an increase in his fentanyl to 100 ug and the propofol to 40 ug.? He remains on Levophed 0.8ug.? HR 76, paced, w underlying CHB. ?BP 115/62.? Been afebrile almost his entire hosp stay.? On VC+ 16/400/70%/+13, RR was 14, Ve 6L, PIP 39cm, Sat 93%.? This morning?s CVBG showed 7.30/39/-6.? No JVD at 30?.? Normal exp phase.? He has no pretibial edema but at least 1+ central edema. I&O:? Urine output averaging <5 cc/hour. LABORATORY DATA:? As below.? Notably, white count down from 23 to 14. ?Hb down from 8.0 to 6.2.? Plat down to 65K.? BUN/creatinine rising progressively to 80/3.2.? bicarb down to 21.? Potassium up to 5.9.? Phos up to 8.1.? Albumin 2.8.? DDimer last night up to 2300. IMAGING:? CXR last night showed no PTX.? Diffuse bilat disease, same as prev film on Oct 30. ECHOCARDIOGRAM by the tech today: 1. Normal LV wall thickness. 2. LV cavity size is normal, with hyperdynamic LV systolic fxn with no gross RWMAs.? EF > 70%. 3. Normal RV size and fxn. 4. LA and RA not adequately assessed. 5. AoV not adequately assessed. 6. MV morphologically normal with trace MR by color ginny. 7. TV morphologically normal with trace TR by color ginny.? CWD jet measured 1.8 m/sec, or gradient of 13mm. 8. IVC 1.8cm, minimal inspiratory collapse.? Estimated CVP therefore 5-8mm.? RVSP estimate 23-26mm. 9. At lease moderate circumferential pericardial effusion, with no evidence of impaired right heart filling on echo.? Also moderate bilat pleural effusions. IMPRESSION:? 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 1. Significantly immunocompromised. 2. Underlying diastolic heart failure is c/w his echo findings 3. Bilat COVID pneumonia.? Symptom onset date approx. Oct 18.? Was on Decadron and baricitinib, along w ASA and Lovenox 40 mg bid.? On Nov 01, I changed the Decadron to Solu-Medrol 80 mg bid, upped Lovenox to 40 mg bid and ASA to 325 mg daily, and added ivermectin, vit C, melatonin, thiamine, fluvoxamine, Vit D, and half dose statin. 4. Acute hypoxemic respiratory failure with ARDS.? 2? above.? FiO2 slowly coming down. 5. Hypotension.? Unclear etiology.? WBC is elevated, but he?s afebrile, lactate is normal.? Bacterial septic shock is unlikely.? Viral sepsis seems the likely etiology, by process of exclusion.? Urine Na was 35, and albumin yest had no effect.? The pericardial effusion doesn?t seem to have any hemodynamic impact, per the echo.? And there?s no tension PTX. 6. Acute on CKD.? Likely ATN.? Volume infusion failed.? Regardless, looks like he?s headed for dialysis.? Line placement is going to be tricky bec of his port on the right, and PPM on the left.? He needs a CVL and a temporary HD catheter.? We?ll place triple lumen HD cath in the left IJV. 7. Hyperkalemia.? Started him on LoKelma.? Added calcium, bicarb, insulin and glucose, and albuterol neb. 8. DM.? On SS insulin coverage. 9. ID.? Blood in urine cultures negative.? No sputum been able to be obtained yet.? No indication for abx at this time. 10. Neuropsych:? MASTER DYER status probably OK, based on the brief propofol holiday. Prognosis appears grim.? I spoke to his brother Ted at some length yesterday.? I indicated to Ted that his brother is on life support, and has embarked on a long, arduous, burdensome, and possibly painful road.? And if he survives, he will be facing months of rehab, a good part of it on a machine.? Ted thinks that his brother would want to continue with everything, including dialysis.? We will proceed accordingly. Critical Care Time (minutes): 60 Physical Exam Vital Signs: Vital Signs: Last Vital Signs Temp 97.5 F 11/02/21 12:01 Pulse 76 11/02/21 18:00 Resp 14 11/02/21 18:00 BP 115/62 11/02/21 18:00 Pulse Ox 93 11/02/21 18:00 Oxygen Flow Rate 7 10/25/21 01:11 BMI result Body Mass Index 28.5 Objective Data Labs CBC & Chem 7: 11/02/21 05:40 11/02/21 05:40 Labs: Laboratory Results - last 24 hr 11/01/21 11/01/21 11/01/21 20:20 20:20 20:20 WBC RBC Hgb Hct MCV MCH MCHC RDW Plt Count MPV Absolute Nucleated RBC Nucleated RBC % (auto) Smear Path Review D-Dimer High Sensitivty 2374 VBG pH VBG pCO2 VBG pO2 VBG HCO3 VBG O2 Saturation VBG Base Excess Sodium 143 Potassium 5.9 H Chloride 111 H Carbon Dioxide 23 Anion Gap 15 BUN 71 H Creatinine 2.93 H Estim Creat Clear Calc 27.6 Estimated GFR 22 POC Glucose Random Glucose 160 H Lactic Acid 1.2 Calcium 6.9 L Phosphorus Magnesium Ferritin Total Bilirubin AST ALT Alkaline Phosphatase Lactate Dehydrogenase Troponin I High Sens C-Reactive Protein B-Natriuretic Peptide Total Protein Albumin Procalcitonin Urine Color Urine Appearance Urine pH Ur Specific Seffner Urine Protein Urine Glucose (UA) Urine Ketones Urine Blood Urine Nitrite Ur Leukocyte Esterase Urine RBC Urine WBC Ur Squamous Epith Cells Urine Bacteria Ur Random Sodium Blood Type Antibody Screen Crossmatch 11/01/21 11/01/21 11/01/21 20:20 20:30 21:33 WBC RBC Hgb Hct MCV MCH MCHC RDW Plt Count MPV Absolute Nucleated RBC Nucleated RBC % (auto) Smear Path Review D-Dimer High Sensitivty VBG pH 7.72 H* 7.28 L VBG pCO2 39 46 VBG pO2 80 65 VBG HCO3 51 H 22 VBG O2 Saturation 96.0 88.0 VBG Base Excess 29.2 -4.3 Sodium Potassium Chloride Carbon Dioxide Anion Gap BUN Creatinine Estim Creat Clear Calc Estimated GFR POC Glucose Random Glucose Lactic Acid Calcium Phosphorus Magnesium Ferritin Total Bilirubin AST ALT Alkaline Phosphatase Lactate Dehydrogenase Troponin I High Sens C-Reactive Protein B-Natriuretic Peptide Total Protein Albumin Procalcitonin Urine Color YELLOW Urine Appearance CLEAR Urine pH 5.5 Ur Specific Seffner >= 1.030 H Urine Protein 2+ H Urine Glucose (UA) NEG Urine Ketones NEG Urine Blood NEG Urine Nitrite NEG Ur Leukocyte Esterase NEG Urine RBC 1-4 Urine WBC 1-4 Ur Squamous Epith Cells 1+ Urine Bacteria 2+ Ur Random Sodium Blood Type Antibody Screen Crossmatch 11/02/21 11/02/21 11/02/21 00:20 00:24 00:51 WBC RBC Hgb Hct MCV MCH MCHC RDW Plt Count MPV Absolute Nucleated RBC Nucleated RBC % (auto) Smear Path Review D-Dimer High Sensitivty VBG pH 7.28 L VBG pCO2 41 VBG pO2 49 VBG HCO3 19 L VBG O2 Saturation 75.0 VBG Base Excess -6.1 Sodium Potassium Chloride Carbon Dioxide Anion Gap BUN Creatinine Estim Creat Clear Calc Estimated GFR POC Glucose 189 H Random Glucose Lactic Acid Calcium Phosphorus Magnesium Ferritin Total Bilirubin AST ALT Alkaline Phosphatase Lactate Dehydrogenase Troponin I High Sens C-Reactive Protein B-Natriuretic Peptide Total Protein Albumin Procalcitonin Urine Color Urine Appearance Urine pH Ur Specific Seffner Urine Protein Urine Glucose (UA) Urine Ketones Urine Blood Urine Nitrite Ur Leukocyte Esterase Urine RBC Urine WBC Ur Squamous Epith Cells Urine Bacteria Ur Random Sodium 35.0 Blood Type Antibody Screen Crossmatch 11/02/21 11/02/21 11/02/21 05:26 05:40 05:40 WBC 14.3 H RBC 2.00 L D Hgb 6.2 L* D Hct 18.0 L* D MCV 90.0 MCH 31.0 MCHC 34.4 RDW 14.2 Plt Count 65 L MPV 11.5 Absolute Nucleated RBC 0.000 Nucleated RBC % (auto) 0.0 Smear Path Review D-Dimer High Sensitivty VBG pH VBG pCO2 VBG pO2 VBG HCO3 VBG O2 Saturation VBG Base Excess Sodium 141 Potassium 5.9 H Chloride 110 H Carbon Dioxide 21 L Anion Gap 16 BUN 80 H Creatinine 3.25 H Estim Creat Clear Calc 24.8 Estimated GFR 20 POC Glucose 166 H Random Glucose 188 H Lactic Acid Calcium 7.2 L Phosphorus 8.1 H Magnesium 2.7 H Ferritin 5434 H Total Bilirubin 0.4 AST 29 ALT 24 Alkaline Phosphatase 82 Lactate Dehydrogenase 574 H Troponin I High Sens C-Reactive Protein 6.08 H B-Natriuretic Peptide Total Protein 4.2 L Albumin 2.8 L Procalcitonin Urine Color Urine Appearance Urine pH Ur Specific Seffner Urine Protein Urine Glucose (UA) Urine Ketones Urine Blood Urine Nitrite Ur Leukocyte Esterase Urine RBC Urine WBC Ur Squamous Epith Cells Urine Bacteria Ur Random Sodium Blood Type Antibody Screen Crossmatch 11/02/21 11/02/21 11/02/21 05:40 05:40 05:47 WBC RBC Hgb Hct MCV MCH MCHC RDW Plt Count MPV Absolute Nucleated RBC Nucleated RBC % (auto) Smear Path Review D-Dimer High Sensitivty VBG pH 7.30 L VBG pCO2 39 VBG pO2 53 VBG HCO3 19 L VBG O2 Saturation 80.0 VBG Base Excess -6.0 Sodium Potassium Chloride Carbon Dioxide Anion Gap BUN Creatinine Estim Creat Clear Calc Estimated GFR POC Glucose Random Glucose Lactic Acid Calcium Phosphorus Magnesium Ferritin Total Bilirubin AST ALT Alkaline Phosphatase Lactate Dehydrogenase Troponin I High Sens 70.0 H C-Reactive Protein B-Natriuretic Peptide 51 Total Protein Albumin Procalcitonin 4.57 Urine Color Urine Appearance Urine pH Ur Specific Seffner Urine Protein Urine Glucose (UA) Urine Ketones Urine Blood Urine Nitrite Ur Leukocyte Esterase Urine RBC Urine WBC Ur Squamous Epith Cells Urine Bacteria Ur Random Sodium Blood Type Antibody Screen Crossmatch 11/02/21 11/02/21 11/02/21 08:25 11:59 18:11 WBC RBC Hgb Hct MCV MCH MCHC RDW Plt Count MPV Absolute Nucleated RBC Nucleated RBC % (auto) Smear Path Review D-Dimer High Sensitivty VBG pH VBG pCO2 VBG pO2 VBG HCO3 VBG O2 Saturation VBG Base Excess Sodium Potassium Chloride Carbon Dioxide Anion Gap BUN Creatinine Estim Creat Clear Calc Estimated GFR POC Glucose 207 H 227 H Random Glucose Lactic Acid Calcium Phosphorus Magnesium Ferritin Total Bilirubin AST ALT Alkaline Phosphatase Lactate Dehydrogenase Troponin I High Sens C-Reactive Protein B-Natriuretic Peptide Total Protein Albumin Procalcitonin Urine Color Urine Appearance Urine pH Ur Specific Seffner Urine Protein Urine Glucose (UA) Urine Ketones Urine Blood Urine Nitrite Ur Leukocyte Esterase Urine RBC Urine WBC Ur Squamous Epith Cells Urine Bacteria Ur Random Sodium Blood Type A Positive Antibody Screen NEGATIVE Crossmatch See Detail Microbiology Microbiology Results: Microbiology 11/01/21 20:20 Urine Catheterized - Grier Catheter Urine Culture - Preliminary No growth to date. 10/29/21 Unknown Urine clean catch - Urine mullins top Urine Culture - Final No growth. 10/25/21 01:55 Blood - Venous Blood Culture - Final No growth after 5 days. 10/25/21 01:55 Blood - Venous Blood Culture - Final No growth after 5 days. Quality Stroke Does the patient have a stroke diagnosis?: No VTE Prior VTE?: No VTE Risk Level:: Medical - moderate - high VTE Device Contraindication: N/A - Device Ordered VTE Drug Contraindication: Treatment Not Indicated Critical Care Time Critical Care Time (minutes): 60
--- NOTE | 2021-11-02 20:31 | W.PM.CCHP ---
Procedures Date of Service Date of Service: 11/02/21 Central Line Placement Left IJ: Central Line Comments: Dialysis catheter placed for emergent dialysis Consent for Procedure: Emergent-no informed consent obtained Time out performed: No Sterile Technique Used: Yes Patient placed on monitor/pulse ox: Yes prep: mask, gown and gloves Central line prep: Chlorhexidine scrub Ultrasound used for placement: Yes Central line lumen inserted: triple Post procedure: sutured in place, good blood return, all ports aspirated, flushed, capped and sterile dressing applied Post procedure x-ray: tip of catheter in good position and no pneumothorax seen Patient tolerated procedure: well and no complications Complications: none
[2021-11-02] MEDS: Atorvastatin Calcium 40 MG TABLET PO (20:38)
[2021-11-02] MEDS: Melatonin 3 MG TABLET 9 MG PO (20:39)
[2021-11-02 23:23] LABS: Glucose, Whole Blood 235 mg/dL (60-115)
[2021-11-03] VITALS (24 sets, daily range): BP systolic 70–126; BP diastolic 40–72; PULSE 75–107; RESP 11–14; TEMP 34.9–37.3; O2SAT 87–97; BMI 28.7
[2021-11-03] MEDS: fentaNYL citrate/NS 1,000 MCG/100 ML PLAST..BAG 10 MCG IVCONT ×2 (02:23→12:42)
[2021-11-03] MEDS: propofoL 1,000 MG/100 ML VIAL 18.36 MG IVCONT (04:28)
[2021-11-03 05:39] LABS: Hematocrit 23.7 % (42.0-52.0); Hemoglobin 8.6 g/dl (14.0-18.0); Mean Corpuscular HGB Conc 36.3 g/dl (31.0-36.0); Mean Corpuscular Hemoglobin 33.2 pg (27.0-33.0); Mean Corpuscular Volume 91.5 fL (80.0-98.0); Mean Platelet Volume 11.8 fL (9.4-12.4); NRBC Pct Auto 0.1 /100WBC (0.0-0.2); Red Blood Count 2.59 X10*6/uL (4.60-5.80); Red Cell Distribution Width 14.8 % (11.0-16.0); White Blood Count 17.9 X10*3/uL (4.8-10.8)
[2021-11-03 05:41] LABS: Glucose, Whole Blood 209 mg/dL (60-115)
[2021-11-03] MEDS: Insulin Lispro 100 UNIT/ML 3 ML VIAL SUBCUT ×2 (05:41→12:43)
[2021-11-03] MEDS: Levothyroxine Sodium 75 MCG TABLET PO (05:41)
[2021-11-03 05:47] LABS: VBG Base Excess -9.1 mmol/L; VBG HCO3 19 mmol/L (22-26); VBG pCO2 52 mmHg; VBG pH 7.16 (7.32-7.43); VBG pO2 65 mmHg
[2021-11-03 05:49] LABS: D Dimer High Sensitivity 1948 NG/ML
[2021-11-03 05:54] LABS: Platelet Count 75 X10*3/uL (160-400)
[2021-11-03 05:59] LABS: Albumin Level 2.6 g/dL (3.5-5.0); Anion Gap 19 (12-20); Blood Urea Nitrogen 90 mg/dL (9-16); Calcium 6.9 mg/dL (8.4-10.2); Carbon Dioxide 18 mmol/L (22-29); Chloride 107 mmol/L (96-108); Creatinine Clr Calc Pharmacy 22.2; Estimated Glomerular Filt Rate 17; Glucose Random 255 mg/dL (60-115); Magnesium 2.7 mg/dL (1.6-2.6); Phosphorus 9.9 mg/dL (2.7-4.5); Potassium 6.7 mmol/L (3.3-5.1); Sodium 137 mmol/L (135-145)
[2021-11-03 06:22] LABS: Venous Blood Gas Refer to POC result
[2021-11-03 06:39] LABS: Ferritin 8871 ng/mL (20-250)
[2021-11-03] MEDS: 0.9 % Sodium Chloride Flush 3 ML SYRINGE IVFLUSH ×2 (07:12→15:13)
[2021-11-03] MEDS: Albuterol/Iprat 2.5/0.5MG 3 ML AMPUL.NEB INHALE ×3 (08:28→15:27)
[2021-11-03] MEDS: propofoL 1,000 MG/100 ML VIAL 13.77 MG IVCONT (09:50)
--- NOTE | 2021-11-03 10:03 | MHC.CLN ---
F/U PT REMAINS INTUBATED AND SEDATED PT IS DAY 5 NPO HD TO START RECOMMEND NEPRO AT MAX GOAL RATE 45ML/HR WITH 240ML FREE WATER FLUSHES Q 6HRS TO PROVIDE 1944KCALS (2308KCALS WITH SEDATION; 31.6KCALS/KG), 87G PROTEIN (1.2G/KG), 1745ML TOTAL WATER FROM FORMULA AND FLUSHES (24ML/KG) START FORMULA AT 20ML/HR AND INCREASE BY 10ML Q 4 HRS UNTIL MAX GOAL IS ACHIEVED MONITOR TOLERANCE, RESIDUALS AND LYTES
--- NOTE | 2021-11-03 10:26 | W.PM.DNNEP ---
Subjective Subjective This patient was seen during dialysis. Physical Exam Vital Signs: Vital Signs: Last Vital Signs Temp 97.9 F 11/03/21 10:00 Pulse 102 H 11/03/21 10:00 Resp 14 11/03/21 10:00 BP 102/66 11/03/21 10:00 Pulse Ox 91 L 11/03/21 10:00 Oxygen Flow Rate 7 10/25/21 01:11 BMI result Body Mass Index 28.7 Const: General: ill appearing Neck: Neck: Yes supple and Yes no JVD Resp: Auscultation: rhonchi and diminished lung sounds Cardio: Jugular venous distension: no JVD Palpation: no palpable S3 Heart sounds: no rubs GI: Inspection: Yes normal to inspection Palpation (GI): Soft to palpation Auscultation: normal bowel sounds Skin: General skin exam: no rashes or lesions noted Extrem: Right upper extremity: No no edema Left upper extremity: No no edema Assessment & Plan Assessment and plan (1) Acute respiratory failure with hypoxia: Status: Acute (2) CKD (chronic kidney disease), stage III: Status: Acute Assessment and Plan: ADRIANNA superimposed on CKD in a setting of COVID -19 Probably sustained ATN Currently oliguric with hyperkalemia Started on dialysis Use low K bath to correct hyperkalemia Discussed with ICU attending Severe anemia/Thrombocytopenia - ordered LDH/Hapto Transfuse as indicated. Overall prognosis guarded Time Spent With Patient Time: Total time spent is greater than 50% in coordination of care (as documented) at patient's floor/unit and/or counseling patient: Time with patient: 15 - 24 minutes Procedures Date of Service Date of Service: 11/03/21
[2021-11-03 10:48] LABS: Lactate Dehydrogenase 762 U/L (118-273)
[2021-11-03 12:04] LABS: Glucose, Whole Blood 159 mg/dL (60-115)
[2021-11-03] MEDS: Enoxaparin Sodium 40 MG/0.4 ML SYRINGE SUBCUT (12:42)
[2021-11-03] MEDS: Chlorhexidine Gluc Oral Rinse 15 ML MOUTHWASH BUCCAL ×2 (12:42→15:12)
[2021-11-03] MEDS: fluvoxaMINE Maleate 50 MG TABLET PO (12:43)
[2021-11-03] MEDS: methylPREDNISolone Sod Succ 125 MG/2 ML VIAL 80 MG IVPUSH (12:43)
[2021-11-03] MEDS: Cholecalciferol (Vitamin D3) 25 MCG TABLET 50 MCG PO (12:43)
[2021-11-03] MEDS: Sodium Zirconium Cyclosilicate 10 GM POWD.PACK PO ×2 (12:43→15:12)
[2021-11-03] MEDS: Thiamine HCL 100 MG TABLET 200 MG PO (12:43)
[2021-11-03] MEDS: Aspirin 325 MG TABLET PO (12:44)
[2021-11-03] MEDS: Ascorbic Acid 500 MG TABLET PO (12:44)
[2021-11-03] MEDS: MannitoL 12.5 GM/50 ML VIAL IV (13:25)
--- NOTE | 2021-11-03 14:39 | P.PNCC_ITS ---
Subjective Subjective Date of Service: 11/03/21 Interval History: Mr. Teixeira was admitted to the ICU on Oct 29 because of hypoxemic respiratory failure secondary to COVID pneumonia. 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 The patient never , has no children.? HCP is his brother Mick.? They live in next door apartments in [place], [place].? For the last year, the patient has been going back and forth between hospitals and the [facility] in [facility] bec of cancer and heart issues.? Most recently the patient was at [facility].? Walks with a walker. The patient was brought to the ED from [facility] on 10/25/2021 bec of SOB and hypoxemia.? Reportedly dx?d with COVID a few days prior.? (My estimate of symptom onset date:? About Oct 18.)? Sat 86% on NC oxygen.? Chest x-ray showed patchy bilateral airspace opacities, R > L, suspicious for COVID.? Required HFNC oxygen right off the bat, Sats high 90?s on HFNC 100%. Admitted to Medicine.? Treated with dexamethasone and baricitinib.? Oxygenation worsened, and the patient was transferred to ICU on October 29 for NIV.? Required tracheal intubation and mechanical ventilation on October 30.? Post- intubation CXR showed much worse bilat disease.? He was started on Levophed yen-intubation bec of hypotension.? His renal indices have been deteriorating progressively. His Levophed dose has been progressively escalating since then.? Was up to 0.8 ug on Nov 01, it?s up to 1.0ug this morning.? Furthermore, his FiO2 requirement, which was as low as 70% yesterday, is now back up to 100%.? We put a dialysis catheter in last night. On exam today, sedated with propofol 30ug, fent 100ug.? He was very tense, biting down my fingers when I examined his mouth and dentition.? His dentition is in very poor, carious condition.? He lost two teeth yesterday.? One was found outside his mouth, one inside his mouth.? HR 94, paced, w underlying CHB. ?BP 105/68.? Been afebrile almost his entire hosp stay.? On VC+ 14/400/100%/+13, RR was 14, Ve 5.6L, PIP 36cm, Sat 93%.? This morning?s CVBG showed 7.16/52/-9.? PER, about 3mm.? No JVD at 30?.? Chest CTA.? Normal exp phase.? Very soft heart tones.? No murmur or gallops appreciated.? Abdomen is flat and benign. ?Now has 1-2+ anasarca. Last propofol holiday Nov 01.? The patient woke up and was moving around with a strong cough, but no purposeful interaction.? Back onto sedation bec of compromised ventilation. I&O:? Urine output averaging 5-10 cc/hour. LABORATORY DATA:? As below.? Notably, white count up to 17. ?Hb up to 8.6 after tx of 1 unit RBCs.? Plat down to 65K.? BUN/creatinine rising progressively to 90/3.6.? bicarb down to 18.? Potassium up to 6.7.? Phos up to 9.9.? Albumin 2.6.? DDimer down to 1948.? Ferritin up to 8800.? LDH up to 760.? Troponin 41.0. IMAGING:? CXR 11/01 showed no PTX.? Diffuse bilat disease, same as prev film on Oct 30. ECHOCARDIOGRAM by the [facility] yesterday: 1. Normal LV wall thickness. 2. LV cavity size is normal, with hyperdynamic LV systolic fxn with no gross RWMAs.? EF > 70%. 3. Normal RV size and fxn. 4. LA and RA not adequately assessed. 5. AoV not adequately assessed. 6. MV morphologically normal with trace MR by color ginny. 7. TV morphologically normal with trace TR by color ginny.? CWD jet measured 1.8 m/sec, or gradient of 13mm. 8. IVC 1.8cm, minimal inspiratory collapse.? Estimated CVP therefore 5-8mm.? RV SP estimate 23-26mm. 9. At lease moderate circumferential pericardial effusion, with no evidence of impaired right heart filling on echo.? Also moderate bilat pleural effusions. IMPRESSION:? 61-year-old gentleman with underlying history of diffuse large B- cell lymphoma, last chemo 2 weeks PAPER STACKER via portacath, chronic diastolic congestive heart failure, CKD stage 3 (baseline about 28/11.2), DM, complete heart block status post permanent pacemaker placement. 1. Significantly immunocompromised. 2. Underlying diastolic heart failure is c/w his echo findings 3. Bilat COVID pneumonia.? Symptom onset date approx. Oct 18.? Was on Decadron and baricitinib, along w ASA and Lovenox 40 mg bid.? On Nov 01, I changed the Decadron to Solu-Medrol 80 mg bid, upped Lovenox to 40 mg bid and ASA to 325 mg daily, and added ivermectin, vit C, melatonin, thiamine, fluvoxamine, Vit D, and half dose statin.? Clinical condition is relentlessly worsening. 4. Acute hypoxemic respiratory failure with ARDS.? 2? above.? FiO2 is back up. 5. Hypotension.? Unclear etiology.? WBC is elevated, but he?s afebrile, lactate is normal.? Bacterial septic shock is unlikely.? Viral sepsis seems the likely etiology, by process of exclusion.? Urine Na was 35, and albumin volume loading had no effect.? The pericardial effusion doesn?t seem to have any hemodynamic impact, per the echo.? There?s no tension PTX.? And the echo pretty much rules out a hemod significant PE. 6. Acute on CKD.? Likely ATN.? Volume infusion failed.? First session of HD today was very difficult, probably because he also has the pacemaker wires in Situ. 7. Hyperkalemia.? LoKelma doesn?t seem to have had much affect.? I would suggest that that?s a poor prognostic sign. 8. DM.? On SS insulin coverage. 9. ID.? Blood and urine cultures negative on 11/01.? No sputum been able to be obtained yet.? No indication for abx at this time. 10. Neuropsych:? ACQUISITION EDITOR status probably OK, based on the last brief propofol holiday. Prognosis appears grim.? I spoke to his brother Mick ([phone]) at some [facility] on Nov 01.? I indicated to Ted that his brother is on life support, and has embarked on a long, arduous, burdensome, and possibly painful road.? And if he survives, he will be facing months of rehab, a good part of it on a machine.? At that time, Mick thought that his brother would want to continue with everything, including dialysis, and we proceeded accordingly. I called his brother Mick again this afternoon, told him things are going very poorly.? I told him that I discussed the patient with our ID specialist today, and she said that he?s not going to survive, the patients with blood cancers don?t survive.? I advised him that we should stop what we?re doing and let him be in peace.? He agreed.? He told me stop what we?re doing and let him be in peace.? He doesn?t want to come in.? We will proceed accordingly. ADDENDUM: The Levophed was turned off and the patient was extubated. He passed shortly thereafter at 1643. There was no pulse or respiratory effort. The patient's brother Mick was notified. Critical Care Time (minutes): 90 Physical Exam Vital Signs: Vital Signs: Last Vital Signs Temp 97.2 F 11/03/21 14:00 Pulse 91 11/03/21 14:00 Resp 14 11/03/21 14:00 BP 97/68 11/03/21 14:00 Pulse Ox 92 11/03/21 14:00 Oxygen Flow Rate 7 10/25/21 01:11 BMI result Body Mass Index 28.7 Objective Data Labs CBC & Chem 7: 11/03/21 05:22 11/03/21 05:22 Labs: Laboratory Results - last 24 hr 11/02/21 11/02/21 11/03/21 18:11 23:09 05:22 WBC RBC Hgb Hct MCV MCH MCHC RDW Plt Count MPV Absolute Nucleated RBC Nucleated RBC % (auto) D-Dimer High Sensitivty VBG pH VBG pCO2 VBG pO2 VBG HCO3 VBG O2 Saturation VBG Base Excess Sodium Potassium Chloride Carbon Dioxide Anion Gap BUN Creatinine Estim Creat Clear Calc Estimated GFR POC Glucose 227 H 235 H Random Glucose Calcium Phosphorus Magnesium Ferritin Lactate Dehydrogenase Troponin I High Sens 41.0 H Albumin 11/03/21 11/03/21 11/03/21 05:22 05:22 05:22 WBC 17.9 H RBC 2.59 L D Hgb 8.6 L D Hct 23.7 L D MCV 91.5 MCH 33.2 H MCHC 36.3 H RDW 14.8 Plt Count 75 L MPV 11.8 Absolute Nucleated RBC 0.020 H Nucleated RBC % (auto) 0.1 D-Dimer High Sensitivty 1948 VBG pH VBG pCO2 VBG pO2 VBG HCO3 VBG O2 Saturation VBG Base Excess Sodium 137 Potassium 6.7 H* Chloride 107 Carbon Dioxide 18 L Anion Gap 19 BUN 90 H Creatinine 3.65 H Estim Creat Clear Calc 22.2 Estimated GFR 17 POC Glucose Random Glucose 255 H D Calcium 6.9 L Phosphorus 9.9 H Magnesium 2.7 H Ferritin 8871 H Lactate Dehydrogenase 762 H Troponin I High Sens Albumin 2.6 L 11/03/21 11/03/21 11/03/21 05:35 05:38 12:01 WBC RBC Hgb Hct MCV MCH MCHC RDW Plt Count MPV Absolute Nucleated RBC Nucleated RBC % (auto) D-Dimer High Sensitivty VBG pH 7.16 L* VBG pCO2 52 VBG pO2 65 VBG HCO3 19 L VBG O2 Saturation 87.0 VBG Base Excess -9.1 Sodium Potassium Chloride Carbon Dioxide Anion Gap BUN Creatinine Estim Creat Clear Calc Estimated GFR POC Glucose 209 H 159 H Random Glucose Calcium Phosphorus Magnesium Ferritin Lactate Dehydrogenase Troponin I High Sens Albumin Microbiology Microbiology Results: Microbiology 11/01/21 20:20 Urine Catheterized - Grier Catheter Urine Culture - Final No growth. 11/01/21 21:28 Blood - Venous Blood Culture - Preliminary No growth after 24 hours. 11/01/21 20:20 Blood - Venous Blood Culture - Preliminary No growth after 24 hours. 10/29/21 Unknown Urine clean catch - Urine mullins top Urine Culture - Final No growth. 10/25/21 01:55 Blood - Venous Blood Culture - Final No growth after 5 days. 10/25/21 01:55 Blood - Venous Blood Culture - Final No growth after 5 days. Quality Stroke Does the patient have a stroke diagnosis?: No VTE Prior VTE?: No VTE Risk Level:: Medical - moderate - high VTE Device Contraindication: N/A - Device Ordered VTE Drug Contraindication: Treatment Not Indicated Critical Care Time Critical Care Time (minutes): 90
--- NOTE | 2021-11-03 16:01 | MHC.CM.PN ---
Pt continues on ventilatory support and new initiation of hemodialysis. Pt's brother/HCP Mick is making medical decisions as pt did not have a MOLST or other advance directives. Pt has been a bed hold at [facility] of [facility]. Clinical updates sent. It is unlikely that pt will be able to return to this level of care unless he can vent wean. CM to follow for d/c plan changes
--- NOTE | 2021-11-03 16:51 | P.DN_ITS ---
Discharge Sum: Prov Provider Primary care physician: Unknown Physician Consults: 10/25/21 01:49 Consult to Infectious Diseases Routine Consulting Provider: Itzel García Reason for consultation: covid pna 11/02/21 09:44 Consult to Nephrology Routine Consulting Provider: Garth Lazcano Reason for consultation: Acute renal failure. Has provider been notified: Yes Discharge Sum: Diag Contributing Factors (1) Acute respiratory failure with hypoxia: (2) CKD (chronic kidney disease), stage III: Discharge Sum: Summary Date and Time Date of admission: 10/25/21 01:39 Summary Details: ? NOTE DISCHARGE DIAGNOSES: 1. Diffuse large B-cell lymphoma 2. Chronic diastolic congestive heart failure 3. CKD stage 3 4. DM 5. Complete heart block, status post permanent pacemaker. 6. Bilat COVID pneumonia. 7. Acute hypoxemic respiratory failure with ARDS 8. Viral septic shock 9. Acute on CKD. 10. Hyperkalemia. The patient was a 61-year-old gentleman with underlying history of diffuse large B-cell lymphoma last chemo 2 weeks TELEPHONE AD TAKER via portacath, chronic diastolic congestive heart failure, CKD stage 3 (baseline about 30/1.2), DM, complete heart block status post permanent pacemaker placement, and hypothyroidism. The patient was brought to the ED from [facility] on 10/25/2021 bec of SOB and hypoxemia.? Reportedly dx?d with COVID a few days prior.? Sat 86% on NC oxygen.? Chest x-ray showed patchy bilateral airspace opacities, R > L, suspicious for COVID.? Required HFNC oxygen right off the bat, Sats high 90?s on HFNC 100%. Admitted to Medicine.? Treated with dexamethasone and baricitinib.? Oxygenation worsened, and the patient was transferred to ICU on October 29 for NIV.? Required tracheal intubation and mechanical ventilation on October 30.? Post- intubation CXR showed much worse bilat disease.? He was started on Levophed yen-intubation bec of hypotension.? His renal indices deteriorated progressively. His Levophed dose was progressively escalated.? Furthermore, his FiO2 requirement kary to 100%.? We put a dialysis catheter in and had a difficult dialysis this morning. ECHOCARDIOGRAM Nov 03: 1. Normal LV wall thickness. 2. LV cavity size is normal, with hyperdynamic LV systolic fxn with no gross RWMAs.? EF > 70%. 3. Normal RV size and fxn. 4. LA and RA not adequately assessed. 5. AoV not adequately assessed. 6. MV morphologically normal with trace MR by color ginny. 7. TV morphologically normal with trace TR by color ginny.? CWD jet measured 1.8 m/sec, or gradient of 13mm. 8. IVC 1.8cm, minimal inspiratory collapse.? Estimated CVP therefore 5-8mm.? RVSP estimate 23-26mm. 9. At lease moderate circumferential pericardial effusion, with no evidence of impaired right heart filling on echo.? Also moderate bilat pleural effusions. IMPRESSION:? 61-year-old gentleman with underlying history of diffuse large B- cell lymphoma, last chemo 2 weeks TELEPHONE AD TAKER via portacath, chronic diastolic congestive heart failure, CKD stage 3 (baseline about 30/1.2), DM, complete heart block status post permanent pacemaker placement. 1. Significantly immunocompromised. 2. Underlying diastolic heart failure c/w his echo findings 3. Bilat COVID pneumonia.? Symptom onset date approx. Oct 18. 4. Acute hypoxemic respiratory failure with ARDS.? 2? above. 5. Hypotension.? Unclear etiology.? WBC is elevated, but he?s afebrile, lactate normal.? Bacterial septic shock unlikely.? Viral sepsis the likely etiology, by process of exclusion. 6. Acute on CKD.? 2? COVID sepsis. 7. Hyperkalemia. 8. DM. I spoke w the patient?s brother Mick this afternoon, told him things were going very poorly.? I advised him that we should stop what we?re doing and let him be in peace.? He agreed.? He told me to stop what we were doing and let him be in peace. The Levophed was turned off and the patient was extubated.? He passed shortly thereafter at 1643.? The patient's brother Mick was notified. Additional Data Attending physician: Aleksandr Garland MD
[2021-11-04 13:50] LABS: Haptoglobin 204 mg/dL (43-212)
== END 2021-11-03 17:22 | disposition expired | DRG 137 ==
LOC: HO.ED 03:33 → HO.EDOVER 04:07 → HO.IMC 17:15 → HO.ICU 10-29 12:59
PROVIDERS: Internal Medicine; Internal Medicine Hypertension Specialist; Internal Medicine Pulmonary Disease; Registered Nurse Community Health; Student in an Organized Health Care Education/Training Program; Admitting Provider Hospitalist; Emergency Provider Student in an Organized Health Care Education/Training Program; PCP Internal Medicine; Visit Provider Anesthesiology
DX: U07.1 COVID-19 (principal); N17.0 Acute kidney failure with tubular necrosis; A41.89 Other specified sepsis; R65.21 Severe sepsis with septic shock; J12.82 Pneumonia due to coronavirus disease 2019; C83.31 Diffuse large B-cell lymphoma, lymph nodes of head, face, and neck; I95.9 Hypotension, unspecified; I13.0 Hypertensive heart and chronic kidney disease with heart failure and stage 1 through stage 4 chronic kidney disease, or unspecified chronic kidney disease; J80 Acute respiratory distress syndrome; I50.32 Chronic diastolic (congestive) heart failure; E87.5 Hyperkalemia; E03.9 Hypothyroidism, unspecified; N18.30 Chronic kidney disease, stage 3 unspecified; E11.22 Type 2 diabetes mellitus with diabetic chronic kidney disease; Z79.82 Long term (current) use of aspirin; Z95.0 Presence of cardiac pacemaker; Z79.890 Hormone replacement therapy; Z79.899 Other long term (current) drug therapy
CPT/HCPCS: 36415; 71045; 80048; 80053; 81001; 82009; 82040; 82728; 82803; 82947; 83010; 83605; 83615; 83735; 83880; 84100; 84145; 84300; 84484; 85025; 85027; 85379; 85610; 86140; 86850; 86900; 86901; 86923; 87040; 87086; 87635; 90999; 92610; 93005; 93308; 93970; 94003; 94640; 94660; 94799; 99285; J0456; J0610; J0696; J1100; J1170; J1650; J1940; J2150; J2270; J2930; J3010; P9016; P9047